=== PATIENT | female | born 1960 | race Caucasian/White ===

== ENCOUNTER → 2017-09-05 | Outpatient (CLI) | payer OTHER ==
--- NOTE | 2017-09-06 10:15 | PULMONARY FUNCTION TEST ---
CLINICAL DATA: A 57-year-old female with a height of 62 inches and a weight of 230 pounds, referred by Dr. Jones Moise for evaluation of asthma. She is currently on Advair. Spirometry pre- and post-bronchodilator was performed. FINDINGS: Pre-bronchodilator spirometry is within normal limits. FVC was 94% of predicted. FEV1 was 91% of predicted. [id number] was 81% of predicted. There was improvement after inhaled bronchodilator. FVC remained the same at 95% of predicted. FEV1 improved 9% to 99% of predicted. [id number] improved 53% to 124% of predicted. IMPRESSION: Normal baseline spirometry with mild improvement after inhaled bronchodilator, especially in small airway flow indicated by a 53% improvement in [id number]. MTDD
== END | disposition home or self-care (01) ==
LOC: C.RC 12:33
PROVIDERS: ATTEND Family Medicine
DX: J45.901 Unspecified asthma with (acute) exacerbation (principal)

== ENCOUNTER 2017-10-13 10:29 | Emergency (ER) | payer OTHER ==
[~2017-10-13] VITALS: Ht 154.9 cm; Wt 111.0 kg
[2017-10-13 10:36] VITALS: TEMP 36.9; Ht 154.9 cm; Wt 111.0 kg
[2017-10-13] MEDS ORDERED: ALBU18002 INH (10:44)
[2017-10-13] MEDS ORDERED: ADVIN10/60 INH (10:44)
[2017-10-13] MEDS ORDERED: ONDANSETRON INJ 2 MG/ML 2 ML VIAL IV STA (10:44)
[2017-10-13] MEDS ORDERED: ESCI10TA17 PO (10:44)
[2017-10-13] MEDS ORDERED: TRAZ100T29 PO (10:44)
[2017-10-13] MEDS ORDERED: CETI10TA84 PO (10:44)
[2017-10-13] MEDS ORDERED: BUPR200T2 PO (10:44)
[2017-10-13] MEDS: MoRPHine SULFATE 10 MG/ML CARP/VIAL IV PRN ×4 (10:56→15:55)
--- NOTE | 2017-10-13 12:35 | DIAGNOSTIC IMAGING REPORT ---
LEFT WRIST 3 VIEWS CLINICAL HISTORY: Fall with left wrist pain. FINDINGS: 3 views of left wrist are obtained. No prior studies are available for comparison at the time of dictation. The skeletal structures are osteopenic. There is an avulsion fracture of the ulnar styloid. There is an impacted and comminuted fracture of the distal radial metaphysis with apex volar angulation and intra-articular extension. Small anteriorly and posteriorly distracted fragments are identified. The radiocarpal articulation appears maintained. Mild arthritic change is noted at the first carpometacarpal articulation. Soft tissue edema is present around the wrist. IMPRESSION: 1. There is an impacted, comminuted, and mildly angulated fracture of the distal radial metaphysis as above with overlying soft tissue edema. 2. There is a small avulsion fracture of the ulnar styloid. Electronically signed by: Pedrito Clayton M.D. 10/13/2017 12:34 PM Dictated Date/Time: 10/13/2017 12:32 PM
--- NOTE | 2017-10-13 12:37 | DIAGNOSTIC IMAGING REPORT ---
L SHOULDER MIN 2 VIEWS ROUTINE CLINICAL HISTORY: Left shoulder pain following fall. COMPARISON: None FINDINGS: Alignment of the left shoulder is likely anatomic although evaluation is suboptimal on this exam. No fracture or suspicious lesion is present. There is moderate osteoarthritis of the left acromioclavicular joint. IMPRESSION: No acute fracture or dislocation of the left shoulder identified Electronically signed by: Stephen Car M.D. 10/13/2017 12:36 PM Dictated Date/Time: 10/13/2017 12:31 PM
[2017-10-13] MEDS ORDERED: ONDANSETRON 4MG OD TAB ONE (14:16)
[2017-10-13] MEDS ORDERED: XYLOCAINE 1%/SOD BICARB 20 ML VIAL INFIL ONE (15:15)
[2017-10-13 15:37] VITALS: O2SAT 100
[2017-10-13] MEDS ORDERED: HYDR-5688 PO (16:27)
[2017-10-13] MEDS ORDERED: ONDANSETRON HOME PACK 4MG OD TAB PO ONE (16:30)
[2017-10-13] MEDS ORDERED: NORCO 5/325MG HOME PACK PO ONE (16:30)
--- NOTE | 2017-10-13 16:34 | EMERGENCY ROOM VISIT NOTE ---
History Report prepared by Maria Isabel: Gaby Maldonado Under the Supervision of: Dr. Peterson Snow M.D. First contact with patient: 10:37 Chief Complaint: SHOULDER PAIN Stated Complaint: SHOULDER PAIN History of Present Illness The patient is a 57 year old female who presents to the Emergency Room with complaints of persistent left shoulder pain starting [employer]. The patient presents to the ED by EMS. She was cleaning out a large cart from the inside. She was preparing to get out of the cart when it started tipping over. She tried to catch herself with her left hand and landed on her left arm. She reports pain to the left shoulder and left wrist. She currently rates her discomfort as a 9/ 10 in severity. She has had two 5 mg doses of morphine. The pain worsens with movement of her arm. She denies any head injury. Pt denies LOC, headache, visual changes, neck pain, chest pain, breathing difficulties, nausea, vomiting , abdominal pain, back pain, lower extremity pain, right arm pain, numbness, weakness, open wounds, active bleeding, or other complaints. Source of History: patient Onset: PL[employer] ADVIS[employer] Position: shoulder (left) Symptom Intensity: 9/10 Quality: other (injury, pain) Timing: other (persistent) Modifying Factors (Worsening): movement Note: Pt reports left wrist pain. Review of Systems See HPI for pertinent positives and negatives. A total of ten systems were reviewed and were otherwise negative. Past Medical & Surgical Medical Problems: (1) Depression Family History No pertinent family history stated. Social History Smoking Status: Never Smoker Occupation Status: employed Current/Historical Medications Scheduled Bupropion Hcl (Wellbutrin Sr), 200 MG PO BID Cetirizine (Zyrtec), 10 MG PO DAILY Escitalopram (Lexapro), 10 MG PO DAILY Fluticasone Prop/Salmeterol (Advair Diskus 100/50 60 Dose), 1 PUFF INH BID Trazodone Hcl (Trazodone), 100 MG PO HS Scheduled PRN Albuterol Sulfate (Proair Respiclick), 1 DOSE INH DAILY PRN for Wheezing Hydrocodone/Acetaminophen 5MG/325MG (B[place]roft 5MG/325MG), 1-2 TABS PO Q6H PRN for Pain Allergies Coded Allergies: Penicillins (Verified Allergy, Unknown, 10/13/17) Physical Exam Vital Signs Date Time Temp Pulse Resp B/P (MAP) Pulse Ox O2 Delivery O2 Flow Rate FiO2 10/13/17 16:25 82 12 143/95 100 Nasal Cannula 2.0 10/13/17 16:02 79 10/13/17 15:59 80 20 145/89 100 Nasal Cannula 2.0 10/13/17 15:37 100 Nasal Cannula 2.0 10/13/17 15:35 73 18 127/92 94 Room Air 10/13/17 14:19 76 18 122/85 94 Room Air 10/13/17 12:30 77 12 126/80 97 Nasal Cannula 2.0 10/13/17 12:02 96 Nasal Cannula 2.0 10/13/17 12:01 87 Room Air 10/13/17 11:03 84 10/13/17 10:36 36.9 86 18 155/108 94 Room Air Physical Exam GENERAL: Awake, alert, uncomfortable appearing, moderate distress HEAD: Normocephalic, atraumatic. No carrillo sign. No raccoon eyes. EYES: Normal conjunctiva. PERRL. EARS: External ears normal. Right TM normal. Left TM normal. NOSE: Atraumatic OROPHARYNX: Lips, tongue, and mucosa unremarkable. No erythema or exudate. NECK: Supple, FROM. No tracheal deviation or JVD. No posterior midline tenderness. No step offs noted. RESPIRATORY: CTA bilaterally. Breath sounds equal. No wheezes. No rhonchi. Normal respiratory effort. CARDIAC: normal rate, normal rhythm. No murmurs. No rubs. ABDOMEN: Inspection reveals no abnormalities. Soft, non distended. No tenderness to palpation. No hernias. PELVIS: Stable to rock. SKIN: Normal. LYMPH: No adenopathy. MUSCULOSKELETAL: Left fingers nontender and atraumatic. Snuff box tenderness and swelling over the radial aspect of the left wrist. Ulnar styloid tenderness. Forearm otherwise atraumatic nontender. Small abrasion on the left elbow, nontender. Tenderness about the left shoulder, ROM limited secondary to pain. Bicep and triceps area nontender. Right upper and both lower extremities are atraumatic. NEURO: GCS 15. Normal sensorium. No sensory or motor deficits noted. Medical Decision & Procedures ER Provider Diagnostic Interpretation: Radiology results as stated below per my review and radiologist interpretation: L SHOULDER MIN 2 VIEWS ROUTINE CLINICAL HISTORY: Left shoulder pain following fall. COMPARISON: None FINDINGS: Alignment of the left shoulder is likely anatomic although evaluation is suboptimal on this exam. No fracture or suspicious lesion is present. There is moderate osteoarthritis of the left acromioclavicular joint. IMPRESSION: No acute fracture or dislocation of the left shoulder identified Electronically signed by: Stephen Car M.D. 10/13/2017 12:36 PM Dictated Date/Time: 10/13/2017 12:31 PM LEFT WRIST 3 VIEWS CLINICAL HISTORY: Fall with left wrist pain. FINDINGS: 3 views of left wrist are obtained. No prior studies are available for comparison at the time of dictation. The skeletal structures are osteopenic. There is an avulsion fracture of the ulnar styloid. There is an impacted and comminuted fracture of the distal radial metaphysis with apex volar angulation and intra-articular extension. Small anteriorly and posteriorly distracted fragments are identified. The radiocarpal articulation appears maintained. Mild arthritic change is noted at the first carpometacarpal articulation. Soft tissue edema is present around the wrist. IMPRESSION: 1. There is an impacted, comminuted, and mildly angulated fracture of the distal radial metaphysis as above with overlying soft tissue edema. 2. There is a small avulsion fracture of the ulnar styloid. Electronically signed by: Pedrito Clayton M.D. 10/13/2017 12:34 PM Dictated Date/Time: 10/13/2017 12:32 PM Medications Administered Medications (Trade) Dose Ordered Sig/Omer Route Start Time Stop Time Status Last Admin Dose Admin Morphine Sulfate (MoRPHine SULFATE INJ) 6 mg Q15M PRN IV 10/13/17 10:45 10/27/17 10:44 10/13/17 15:55 6 MG Ondansetron HCl (Zofran Inj) 4 mg NOW STAT IV 10/13/17 10:44 10/13/17 10:47 DC 10/13/17 10:55 4 MG Ondansetron HCl (Zofran Odt) 4 mg STK-MED ONCE .ROUTE 10/13/17 14:16 10/13/17 14:17 DC 10/13/17 14:18 4 MG Procedure SPLINTING: Indication: Fracture The injured extremity was identified. The patient was prepped and measured for the placement of a volar Ortho-Glass splint. Splint applied in the standard fashion over a layer of webril and secured using an elastic bandage. Set into a position of function. Normal neurovascular status after placement verified by me. The patient tolerated the procedure well and the care of the splint was discussed with the patient/family. No complications. ED Course 1043: The patient was evaluated in room B7. A complete history and physical exam was performed. 1044: Zofran Inj 4 mg IV. 1045: Morphine Sulfate 6 mg IV. 1332: I reevaluated the patient. I updated her on the results. 1416: Zofran Odt 4 mg PO. 1451: I discussed the patient's case with Dr. Jha, [facility] orthopedic surgery. He will come see the patient for a nonsedation reduction. 1506: I reevaluated the patient. I updated her on the plan. 1610: Patient reassessed. She was successfully reduced by orthopedics. Medications and instructions reviewed. Waiting on her right home. Medical Decision Prior records reviewed and summarized above. Triage Nursing notes reviewed and agree them. Additional history obtained from family. The patient's history was concerning for traumatic injury. Differential diagnosis: Etiologies such as fracture, dislocation, neurovascular compromise, compartment syndrome, soft tissue injury, as well as others were entertained. Physical examination: Consistent with an isolated left arm injury. ER treatment provided: Tubal doses of IV morphine Splint Sling Ice pack IV Zofran Reduction by orthopedics On reassessment the patient felt better. Diagnostics interpreted by me: Imaging studies: Xrays as above. Consultation: A consultation was placed with [facility]. The case was discussed and diagnostics were reviewed. The patient was evaluated in the ER for further treatment. The patient has a left wrist fracture. She has a left shoulder strain. Rotator cuff injury is not excluded given the inability to fully test her arm. She will have follow-up with orthopedics. By the evaluation outlined above emergent etiologies such as open fracture, dislocation, neurovascular compromise , compartment syndrome, infections, as well as others were deemed relatively unlikely. The patient was informed about the findings as listed above. All questions were answered and she will pleased with the treatment. Return instructions were outlined and the patient was discharged in stable condition. Prescription management: B[place]roft Zofran home pack Referral: The patient was referred to [facility] for follow-up care. Medication Reconcilliation Current Medication List: was personally reviewed by me Blood Pressure Screening Patient's blood pressure: Elevated blood pressure Blood pressure disposition: Elevated BP felt to be situational Consults Time Called: 1440 Consulting Physician: Dr. Jha, [facility] orthopedic surgery Returned Call: 1450 I discussed the patient's case with her. He will come see the patient for a nonsedation reduction. Impression Primary Impression: Left wrist fracture Additional Impressions: Left shoulder strain Accidental fall Work related injury Scribe Attestation The scribe's documentation has been prepared under my direction and personally reviewed by me in its entirety. I confirm that the note above accurately reflects all work, treatment, procedures, and medical decision making performed by me. Departure Information Dispostion Home / Self-Care Prescriptions Hydrocodone/Acetaminophen 5MG/325MG (Bancroft 5MG/325MG) Tab 1-2 TABS PO Q6H Y for Pain, #20 TAB Prov: Peterson Snow MD 10/13/17 Referrals Arthur Flynn MD (PCP) Patient Instructions My [facility] Additional Instructions ORTHOPEDIC INSTRUCTIONS: DO NOT drive, drink alcohol, operate machinery, or perform dangerous activities today. You were given medications in the ER that can affect your ability to safely function or operate a vehicle. Hydrocodone/acetaminophen 5/325mg: Take 1-2 pills every 6 hours as needed for pain. Avoid additional Acetaminophen/Tylenol, alcohol, operating machinery or dangerous equipment, working on ladders or roofs, DRIVING, or situations where being under the influence may be dangerous. It is recommended to use a stool softener such as Colace, 100mg twice daily while taking this medication to avoid constipation. Zofran 4 mg oral dissolving tablets: take one tablet and allow it to melt in your mouth every 4 hours as needed for nausea. Ibuprofen(Motrin, Advil) may be used for fever or pain. Use 600mg every six hours as needed. Take with food. Avoid using more than 2400mg in a 24 hour period. Do not use 2400mg per day for more than three consecutive days without physician direction. Prolonged inappropriate use can lead to stomach upset or ulcers. Ice compresses for 20 minutes at a time four times daily for 2-3 days. Use the sling as instructed. Remove your arm from the sling 4-6 times a day and move all the joints around to keep them loose. Rest and elevate your injury. Do not get the splint wet. If your splint feels excessively tight, you have worsening pain, develop numbness or tingling, or your digits appear blue, loosen the korin wrap. Then reapply the korin wrap gently without removing the splint. If your symptoms are not quickly relieved return to the ER for re- evaluation. Return to the ER immediately for any numbness, tingling, severe pain, extreme swelling in the extremity or as needed. Follow-up with orthopedics tomorrow for a recheck of your current condition. Problem Qualifiers
--- NOTE | 2017-10-13 16:37 | DIAGNOSTIC IMAGING REPORT ---
L WRIST MIN 3 VIEWS ROUTINE CLINICAL HISTORY: Fracture. Post reduction films. COMPARISON: Earlier in the day. DISCUSSION: There is been interval reduction of the previous described fracture with application of a plaster cast. The fine bony details obscured. On the lateral view, the radial articular surface is in the neutral position. IMPRESSION: Interval reduction of the previous described fracture with application of a plaster cast Electronically signed by: Mack Spencer M.D. 10/13/2017 4:35 PM Dictated Date/Time: 10/13/2017 4:34 PM
--- NOTE | 2017-10-13 16:44 | Medical Consult ---
Consultation Date of Consultation: Oct 13, 2017. Attending Physician: Dr. 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 She was cleaning off some type of cart had a lot of water and the cart tipped over and she basically fell onto her left side. She put her left arm out to catch herself. She had immediate pain of her left wrist and shoulder. She was brought to the emergency room by ambulance. While in the emergency room , she had x-rays of her left wrist which showed a comminuted, impacted, intra- articular fracture of her left distal radius and nondisplaced left ulnar styloid fracture. She also had x-rays of her left shoulder which showed no evidence of acute bony abnormality. Dr. Jha was consulted for care of her left distal radius and ulna fracture. He recommended hematoma block and closed reduction. Patient agreed. She states that she does have some tingling in her left thumb, otherwise states normal sensation throughout her left hand. She denies any left elbow pain. She denies any other injuries. She denies any previous problems with her left wrist elbow or shoulder. Past Medical/Surgical History Left distal radius and ulna fracture. Left shoulder pain Social History Smoking Status: Never Smoker Allergies Coded Allergies: Penicillins (Verified Allergy, Unknown, 10/13/17) Current Inpatient Medications Current Inpatient Medications Medications (Trade) Dose Ordered Sig/Omer Route Start Time Stop Time Status Last Admin Dose Admin Morphine Sulfate (MoRPHine SULFATE INJ) 6 mg Q15M PRN IV 10/13/17 10:45 10/27/17 10:44 10/13/17 15:55 6 MG Acetaminophen/ Hydrocodone Bitart ([place] 5/325mg Home Pack) 1 homepack UD ONCE PO 10/13/17 16:30 10/13/17 16:31 Ondansetron HCl (ZOFRAN ODT 4MG Home Pack) 1 homepack UD ONCE PO 10/13/17 16:30 10/13/17 16:31 Review of Systems As per history of present illness. See ED physician note. Physical Exam Date Time Temp Pulse Resp B/P (MAP) Pulse Ox O2 Delivery O2 Flow Rate FiO2 10/13/17 16:02 79 10/13/17 15:59 80 20 145/89 100 Nasal Cannula 2.0 10/13/17 15:37 100 Nasal Cannula 2.0 10/13/17 15:35 73 18 127/92 94 Room Air 10/13/17 14:19 76 18 122/85 94 Room Air 10/13/17 12:30 77 12 126/80 97 Nasal Cannula 2.0 10/13/17 12:02 96 Nasal Cannula 2.0 10/13/17 12:01 87 Room Air 10/13/17 11:03 84 10/13/17 10:36 36.9 86 18 155/108 94 Room Air General Appearance: WD/WN, no apparent distress, + mild distress (with hematoma block, tearful) Extremities/Musculoskelatal: + pertinent finding (Exam of left upper extremity : She is nontender with palpation of her fingers on left hand. She is nontender throughout her left hand. She has no distal edema. She is decreased sensation with light touch in the dorsal aspect of her left thumb. Motor function is intact. Sensation to light touch is intact on the volar surface of all of her fingers. Capillary refill is brisk. She has an effusion to her left wrist joint. She is point tender with palpation over her left distal radius and left distal ulna over the fracture sites. There is a small deformity appreciated. Range of motion of her left wrist not attempted due to pain. She tolerates gentle flexion-extension of her left elbow. I did not perform pronation or supination of her forearm. She is nontender over any bony prominence of her left elbow. There is no evidence of olecranon effusion. She does have small superficial abrasion over her left olecranon. No deformity noted at her left elbow or shoulder. The shoulder is tender on the anterior aspect of the shoulder. She is nontender over the before meals joint or clavicle. She is nontender over the scapula. Range of motion is limited today due to guarding and pain. She tolerates gentle external/internal rotation of about [address] She can abduct to about 80-90 with some mild discomfort but strength is intact. Forward elevation not performed today.) Laboratory Results Diagnostic radiology: LEFT WRIST 3 VIEWS CLINICAL HISTORY: Fall with left wrist pain. FINDINGS: 3 views of left wrist are obtained. No prior studies are available for comparison at the time of dictation. The skeletal structures are osteopenic. There is an avulsion fracture of the ulnar styloid. There is an impacted and comminuted fracture of the distal radial metaphysis with apex volar angulation and intra-articular extension. Small anteriorly and posteriorly distracted fragments are identified. The radiocarpal articulation appears maintained. Mild arthritic change is noted at the first carpometacarpal articulation. Soft tissue edema is present around the wrist. IMPRESSION: 1. There is an impacted, comminuted, and mildly angulated fracture of the distal radial metaphysis as above with overlying soft tissue edema. 2. There is a small avulsion fracture of the ulnar styloid. L SHOULDER MIN 2 VIEWS ROUTINE CLINICAL HISTORY: Left shoulder pain following fall. COMPARISON: None FINDINGS: Alignment of the left shoulder is likely anatomic although evaluation is suboptimal on this exam. No fracture or suspicious lesion is present. There is moderate osteoarthritis of the left acromioclavicular joint. IMPRESSION: No acute fracture or dislocation of the left shoulder identified Assessment & Plan Assessment: 1. Left distal radius and ulna fracture. Intra-articular, comminuted, impacted 2. Left shoulder pain Plan: She was seen and evaluated by myself as well as Dr. Jha. After evaluation with Dr. Jha, a hematoma block was recommended in order to perform closed reduction of her left distal radius fracture. She was in agreement. Please see procedure note for further details. Hematoma block was successfully performed as well as a closed reduction by Dr. Jha with fluoroscopy guidance. Improved anatomic alignment of the fracture was confirmed with fluoroscopy images. A postreduction x-ray was also ordered and currently pending. Sugar tong splint was placed on her left forearm using plaster. She tolerated the splint application well. The splint allowed for full range of motion of her fingers. Sling was reapplied. She was instructed to ice, and elevate left upper extremity. Wear the sling for comfort. Keep the splint on at all times. Keep the splint clean, dry, and intact. Cover when bathing. She should be out of work until further notice. She was instructed to open and close her fingers frequently to prevent stiffness and elbow swelling. No pushing or pulling with her left upper extremity. Follow- up with Dr. Jha on October. Please call [phone] with any problems, questions, or concerns. He has a follow-up scheduled the pins in orthopedics with Dr. Jha on October 19, 2017 at 9:15 AM. Procedure Note: Left wrist was identified. Timeout verbal consent was obtained. She agreed with hematoma block being performed today. Left wrist distal radius fracture site was identified. Site of point tenderness and fracture was marked, cleansed with alcohol and injected 12 cc of 1% percent lidocaine plain was injected into the distal radius fracture, performed by myself and Dr. Jha. Aspiration of hematoma was performed to confirm injection site. Pressure was applied for hemostasis.
--- NOTE | 2017-10-13 16:55 | DIAGNOSTIC IMAGING REPORT ---
L WRIST 2 VIEWS CLINICAL HISTORY: 57 years-old Female presenting with CLOSED REDUCTION LEFT WRIST. TECHNIQUE: 4 fluoroscopic spot image(s) obtained as part of an intraoperative procedure. COMPARISON: Plain radiographs performed earlier the same day. FINDINGS/IMPRESSION: Distal radial fracture again noted with improved alignment and decreased impaction. No residual significant angulation. Ulnar solid fracture less apparent. A plaster cast was subsequently placed. Please see surgical report for further details. Dose area product (mGy.cm^2): 42.024. Fluoroscopy time: 3 seconds. Number of fluoroscopic spot images: 4. Electronically signed by: Juan Antonio Mcguire M.D. 10/13/2017 4:53 PM Dictated Date/Time: 10/13/2017 4:51 PM
[2017-10-13 17:05] VITALS: BP 112/77; PULSE 77; O2SAT 95
== END 2017-10-13 17:07 | disposition home or self-care (01) ==
LOC: EDBD 10:29 → C.EDB 10:30
DX: S52.502A Unspecified fracture of the lower end of left radius, initial encounter for closed fracture (principal); S43.402A Unspecified sprain of left shoulder joint, initial encounter; W19.XXXA Unspecified fall, initial encounter; Y92.169 Unspecified place in school dormitory as the place of occurrence of the external cause; Y99.0 Civilian activity done for income or pay; F32.9 Major depressive disorder, single episode, unspecified; Z79.899 Other long term (current) drug therapy; Z88.0 Allergy status to penicillin

== ENCOUNTER → 2017-10-19 | Outpatient (CLI) | payer OTHER ==
[~2017-10-19] MED LIST: ADVIN10/60 INH; ALBU18002 INH; BUPR200T2 PO; CETI10TA84 PO; ESCI10TA17 PO; HYDR-5688 PO; TRAZ100T29 PO
== END | disposition home or self-care (01) ==
LOC: C.RDSM 18:13
PROVIDERS: ATTEND Orthopaedic Surgery
DX: S62.102A Fracture of unspecified carpal bone, left wrist, initial encounter for closed fracture (principal); X58.XXXA Exposure to other specified factors, initial encounter

== ENCOUNTER → 2017-10-27 | Outpatient (CLI) | payer OTHER | END | disposition home or self-care (01) | LOC: C.RDSM 17:07 | PROVIDERS: ATTEND Orthopaedic Surgery | DX: S62.102A Fracture of unspecified carpal bone, left wrist, initial encounter for closed fracture (principal); X58.XXXA Exposure to other specified factors, initial encounter ==

== ENCOUNTER → 2017-10-31 | Outpatient (CLI) | payer OTHER ==
--- NOTE | 2017-10-31 14:58 | DIAGNOSTIC IMAGING REPORT ---
CHEST 2 VIEWS ROUTINE HISTORY: Preop. COMPARISON: Chest 04/18/2016. FINDINGS: The cardiac silhouette is mildly enlarged. Low lung volumes. The lungs are clear. No pleural effusions. No pneumothorax. IMPRESSION: The cardiac silhouette is mildly enlarged. However, this could be accentuated by the low lung volumes. Otherwise, no acute process within the chest. Electronically signed by: Carlos Browne M.D. 10/31/2017 2:57 PM Dictated Date/Time: 10/31/2017 2:55 PM
== END | disposition home or self-care (01) ==
LOC: C.RAD1850 14:47
PROVIDERS: ATTEND Physician Assistant
DX: S62.102A Fracture of unspecified carpal bone, left wrist, initial encounter for closed fracture (principal); X58.XXXA Exposure to other specified factors, initial encounter; M75.102 Unspecified rotator cuff tear or rupture of left shoulder, not specified as traumatic

== ENCOUNTER → 2017-11-13 | Day surgery (SDC) | payer OTHER ==
[2017-10-31 09:58] VITALS: Ht 154.9 cm; Wt 104.5 kg
[~2017-11-13] VITALS: Ht 154.9 cm; Wt 104.5 kg
[~2017-11-13] MED LIST changes: +ATROPINE SULFATE 0.1 MG/ML 5ML SYR IV PRN; +CLINDAMYCIN 900MG IV SCH; +DEXAMETHASONE SOD INJ 4 MG/ML VIAL ONE; +EpHEDrine SULFATE 50MG/5ML SYR ONE; +EpHEDrine SULFATE INJ 50 MG/ML AMP IV PRN; +EpINEphrine HCL INJ 1 MG/ML 1ML SYRINGE ONE; +EpINEphrine INJ 1MG/ML AMP 1 MG/ML AMP ONE; +FENTANYL CITRATE INJ 50 MCG/1 ML 2 ML VIAL IV PRN; +FENTANYL CITRATE INJ 50 MCG/1 ML 2 ML VIAL ONE; -HYDR-5688 PO; +LACTATED RINGER'S 1000ML 1,000 ML IV SCH; +LIDOCAINE HCL 2% 2 ML VIAL (20MG/ML) ONE; +METOCLOPRAMIDE HCL INJ 5 MG/ML 2 ML VIAL IV PRN; +MIDAZOLAM HCL 1 MG/ML 2ML VIAL ONE; +ONDANSETRON INJ 2 MG/ML 2 ML VIAL IV PRN; +ONDANSETRON INJ 2 MG/ML 2 ML VIAL ONE; +OXYCODONE/ACETAMINOPHEN 5-325 TAB PO PRN; +PROPOFOL IV EMULSION 10 MG/ML 20 ML VIAL ONE; +ROCURONIUM BROMIDE 10 MG/ML 5 ML VIAL ONE; +ROPIVACAINE 0.5% 5 MG/ML 30 ML VIAL ONE; +SODIUM CHLORIDE 0.9% 1000ML 1,000 ML IV SCH; +SUCCINYLCHOLINE CHLORIDE 20 MG/ML 10 ML VIAL IV ONE
--- NOTE | 2017-11-13 08:32 | History & Physical Bridge - SC ---
H&P Re-Evaluation Bridge Note: I have examined the patient, reviewed the History & Physical and in the interval since the performance of the History & Physical I have noted the following changes of clinical significance: No changes noted. Cast was removed in pre-op area.
--- NOTE | 2017-11-13 12:13 | [facility] Post Operative Brief Note ---
Immediate Operative Summary Operative Date November 13, 2017. Pre-Operative Diagnosis Left Shoulder Rotator Cuff Tear, Biceps Tendonitis Post-Operative Diagnosis Same Procedure(s) Performed Left Shoulder Arthroscopy, Rotator Cuff Repair, Biceps Tenotomy, Subacromial Decompression Surgeon Dr. Jha Heat Treat Puller Surgeon(s) Sana Solis PA-C Estimated Blood Loss 30 ML Findings Consistent with Post-Op Diagnosis Fluids (cc crystalloids) 1000 cc Specimens None Drains None Anesthesia Type General Regional Complication(s) none Disposition Disposition: Recovery Room / PACU
--- NOTE | 2017-11-13 12:31 | [facility] Operative Report ---
Operative Report Operative Date November 13, 2017. Pre-Operative Diagnosis Left Shoulder Rotator Cuff Tear, Biceps Tendonitis Post-Operative Diagnosis Same Procedure(s) Performed Left Shoulder Arthroscopy, Rotator Cuff Repair, Biceps Tenotomy, Subacromial Decompression Surgeon Dr. Jha Career Technical Counselor Surgeon(s) Sana Solis PA-C Estimated Blood Loss 30 ML Fluids 1000 cc Specimens None Drains None Anesthesia Type General Regional Complication(s) none Disposition Recovery Room / PACU Description of Procedure I was present during entire procedure and performed portal skin closure. Please see Dr. Jha procedure notes for specifics. I attest to the content of the Intraoperative Record and any orders documented therein. Any exceptions are noted below.
--- NOTE | 2017-11-13 12:35 | Discharge Instructions ---
Discharge Instructions Date of Service November 13, 2017. Admission Reason for Admission: Left Shoulder Rotator Cuff Tear, Biceps Tendonitis Discharge Discharge Diagnosis / Problem: Left shoulder rotator cuff tear, biceps tendonitis Discharge Goals Goal(s): Decrease discomfort, Improve function, Increase independence Activity Recommendations Activity Limitations: as noted below Lifting Limitations: until after follow-up appointment Exercise/Sports Limitations: until after follow-up appointment May Resume Sexual Activity: after follow-up appointment Shower/Bathe: tomorrow, keep incision dry Driving or Machine Use: No driving until cleared by lubricating specialist Weightbearing Status: Left non-weightbearing (Upper extremity) . Instructions / Follow-Up Instructions / Follow-Up Post-operative Instructions Dear Patient and Family/Friends, Before you are discharged from the hospital, it is important to know what to expect when you get home after surgery. To that end, we have created this sheet of discharge instructions which covers many commonly asked questions. Make sure you go through this sheet in its entirety with your nurse before you are discharged. Please note that we will go over the specifics of your surgery and recovery when you return for your first post-operative visit. Sincerely, Dr. Jha Pain Expect to be in a fair amount of pain after surgery. Remember, our goal is not to eliminate your pain, but to make it tolerable. It is a good idea to stay ahead of your pain by taking the medications you were prescribed once you get home. Typically, the pain starts improving 3-7 days after surgery. You should start weaning off the narcotic pain medication (oxycodone, hydrocodone, hydromorphone, morphine) as soon as your pain improves. Please call our office if your pain is not adequately controlled. Ice Ice your operative site at least 5 times a day for 15-30 minutes at a time. Make sure you have a thin cloth between the ice or cooling unit and your skin to prevent jin bite. This is especially important if you received a nerve block. Continue icing your operative site for the first 5-7 days after surgery , then as needed. Diet/Nausea/Vomiting Start by drinking clear liquids and eating crackers. If you can tolerate this, then you may resume your normal diet. If you feel nauseated or vomit, take Zofran/ondansetron (if prescribed). Please call our office if you have intractable nausea or vomiting, or, if after hours, you may go to the Emergency Room for help. Constipation Constipation is a common side effect of narcotic pain medication. If you have not had a bowel movement within 2 days after surgery, we recommend purchasing an over the counter laxative such as Milk of Magnesia, Dulcolax, or Miralax from a local pharmacy, and taking it as instructed. Call our clinic if any questions. Slings and Braces If you were placed in a sling or brace, it must be worn at all times, including sleep. You may remove your sling or brace for physical therapy, home exercises , and showering. The length of time you will be in your brace and range of motion restrictions depends on what surgery you had; these details will be reviewed at your first post-operative appointment. Nerve block The anesthesia team sometimes places a nerve block to help with post-operative pain control. This results in significant numbness and inability to move the extremity. The nerve block usually wears off in 8-12 hours, but sometimes can last up to 24 hours. Please call our office if you are still unable to move your extremity after 24 hours, unless you received a pain pump to take home. Nerve blocks typically wear off quickly, so start taking pain medication as soon as you start feeling soreness near your surgical site. Weight bearing and Range of Motion. Do not bear any weight through your operative extremity immediately after surgery. If you had upper extremity surgery, do not lift anything with that arm. If you are in a knee brace, keep it locked in place until your follow-up. We will discuss your weight bearing, range of motion, and lifting restrictions in detail at your first post-operative appointment. Continuous Passive Motion (CPM) Machine If you were prescribed a CPM machine, it will start after your first post- operative appointment, at which time we will give you instructions on the range of motion settings and duration of treatment Physical therapy You will be given a prescription for physical therapy or occupational therapy at your first post-operative appointment. Typically, patients start therapy within 1 week of surgery Wound care and showering We will inspect your wound at your first post-operative visit, and may do a dressing change at that time. Most patients will be in a water-proof dressing that is removed 14 days after surgery. It is normal to see some dried blood on the dressing. Do not remove your dressing, paper strips or sutures yourself unless you are given permission. Showering is allowed the day after surgery. Do not scrub or remove any dressings. The wound should not be submerged underwater (i.e. in a bathtub or pool) until 4 weeks after surgery LINDSAY stockings If you were given white stockings, these are to be worn at all times except to shower (on both legs) for the first 2 weeks after surgery. Driving You may not drive while taking narcotic pain medication or while in a cast, splint, sling or brace. You, the patient, need to make the final determination about when you are safe to drive, however, the earliest you may consider driving after surgery is below: Hand/Wrist/Elbow Surgery: 3 days Shoulder Surgery: 2 weeks Hip,/Knee/Ankle Surgery: 4 weeks Fracture repair: 6 weeks Return to Work Your return to work depends on what surgery was done and what type of work you do. Please bring any paperwork your employer needs completed to your first post -operative visit. Also, bring a description of your job duties, as this helps us to understand what risks you may face at work. Travel Avoid long distance travel (greater than 1 hour) in airplanes and cars for the first 6 weeks after surgery. If you must travel, you need to have a Doppler ultrasound done before you travel to rule out a blood clot in your legs. Follow-up You should have a follow-up appointment already scheduled 1-2 days after surgery. If not, please contact our office to make this appointment before you leave the hospital. When to call the office It is normal to have swelling and bruising in the limb that was operated on. This will improve with time. It is also normal to have fevers for the first 2 days after surgery. Reasons you should call your doctor include: Uncontrolled pain; Nausea, vomiting, or constipation that does not improve with medication; Fevers over 101.5, chills, sweats; Drainage or bleeding from the wound; Foul odor; Spreading areas of redness; Any other concerns Current Hospital Diet Patient's current hospital diet: Discharge Diet Recommended Diet: Regular Diet Procedures Procedures Performed: Left Shoulder Arthroscopy, Rotator Cuff Repair, Biceps Tenotomy, Subacromial Decompression Pending Studies Studies pending at discharge: no Medical Emergencies . Who to Call and When: Medical Emergencies: If at any time you feel your situation is an emergency, please call 911 immediately. . Non-Emergent Contact Non-Emergency issues call your: Primary Care Provider Call Non-Emergent contact if: you have a fever, temperature is above 101.5, your pain is not controlled, your pain is worsening, wound has increased drainage, you have any medication questions . "Provider Documentation" section prepared by Norberto Solis. . [place] Drug Monitoring Program Search Results: patient reviewed within database, no issues identified, see additional documentation
[2017-11-13 13:23] VITALS: TEMP 36.8
--- NOTE | 2017-11-13 13:31 | OPERATIVE REPORT ---
DATE OF OPERATION: 11/13/2017 PREOPERATIVE DIAGNOSES: Left shoulder rotator cuff tear, left shoulder biceps tendinitis, left shoulder subacromial spur, and left shoulder loose body. POSTOPERATIVE DIAGNOSES: Same with the exception of no visible loose body. OPERATIONS PERFORMED: 1. Left shoulder arthroscopic rotator cuff repair. 2. Left shoulder biceps tenotomy. 3. Left shoulder subacromial decompression. SURGEON: Juan Antonio Jah MD MAMMA LOGIST: AKSHAT Rodriguez ESTIMATED BLOOD LOSS: 30 mL. IV FLUIDS: 1000 mL crystalloid. SPECIMENS: None. COMPLICATIONS: None. IMPLANTS: 4 [employer] SwiveLock anchors, 2 preloaded with FiberTape and the other two self punching. INDICATIONS: Ms. York is a 57-year-old female who took a fall at work approximately a month ago sustaining a left intra-articular distal radius fracture and an acute left shoulder rotator cuff tear. I have been treating her distal radius fracture nonsurgically for the last 4 weeks. An MRI showed acute rotator cuff tear. We waited until 4 weeks so that her distal radius fracture could provisionally heal and yet not wait past the 6 week point, at which point a rotator cuff repair was less likely to heal. X-rays including 3 views done today demonstrate good healing of her distal radius fracture and good alignment. After reviewing all the risks and benefits of surgery, she elected to proceed. All questions were answered. Informed consent was signed. OPERATIVE FINDINGS: Diagnostic arthroscopy findings were as follows: 1. The biceps tendon showed tendonitis, and there was synovitis in the rotator interval 2. The subscapularis was intact. 3. The supraspinatus and anterior half of the infraspinatus were torn off the greater tuberosity. 4. The teres minor was intact. 5. The articular cartilage of the glenoid and the humeral head were normal. 6. The glenoid labrum was within normal limits. 7. The subacromial space showed an anterior subacromial spur with some fraying of the undersurface of the CA ligament consistent with shoulder pathologic impingement. The loose body was not visible in the joint. It may have escaped through the rotator cuff tear into the subdeltoid space, as it was not visible in the subacromial space either. I did not feel that the benefits of attempting to find it in the subdeltoid space near the axillary nerve outweighed the risks and therefore a loose body removal was not performed. The rotator cuff tear was a reverse L-shaped tear which was repaired with a single margin convergence stitch followed by a SpeedBridge. DESCRIPTION OF THE OPERATION: The patient was identified in the preoperative holding area where her surgical site was marked. Her cast was removed and x-rays were obtained showing good alignment of the distal radius fracture. She was then given interscalene block by anesthesia. She was brought back to the main operating room. She was placed on the operating room table and general anesthesia was administered. She was moved in the lateral decubitus position. All bony prominences were padded. An exam under anesthesia was performed demonstrating some stiffness in her shoulder with approximately 100 degrees of forward elevation and 50 degrees of external rotation with the arm at the side. She was then prepped and draped in the normal sterile fashion. Prior to incision, a multidisciplinary timeout was called. All in the room are in agreement. We began by making a posterior viewing portal. An anterior working portal was created under direct visualization. We then performed a diagnostic arthroscopy revealing the above findings. Once the diagnostic arthroscopy was complete, the basket punch was introduced through the anterior working portal and was used to tenotomize the biceps at its insertion on the superior labrum. The biceps retracted out of the joint nicely. The scope was moved in the subacromial space. The undersurface of the acromion was exposed with electrocautery. The CA ligament was released off the anterior aspect of the acromion. A 5.5 barrel sarita was used to perform a decompression of the subacromial spur. The PassPort cannula was inserted. The rotator cuff tear was explored. It was a reverse L-shaped tear with a split going between the infraspinatus and supraspinatus. The footprint was then debrided of any soft tissue down to healthy bleeding bone, which was gently touched with the shaver to stimulate healing. I then used a #[address] a single margin convergence stitch between the supra and infraspinatus, which nicely reduced the tendons down onto the exposed footprint. I then made an accessory portal just off the lateral edge of the acromion through which I placed my 2 SwiveLocks preloaded with FiberTape and TigerTape respectively. These were then passed through the rotator cuff tear medially and cut. One strand of TigerTape and one strand of FiberTape were then grasped out through the lateral working portal. This was placed down through in a lateral row anchor via a self-punching SwiveLock anchor. The remaining 2 strands were then placed in another self-punching SwiveLock anchor obtaining excellent fixation with appropriate tension of the rotator cuff tendon onto the tuberosity. At this point, the probe was used to carefully inspect the repair which we were very happy with. Our final arthroscopic images were obtained. The portals were closed with inverted 3-0 Monocryl sutures. Sterile dressing was applied and she was placed into a sling with abduction pillow. The patient was carefully moved into the supine position, extubated, then transferred to recovery room in stable condition. POSTOPERATIVE COURSE: The patient will be discharged home from the recovery room. She will be nonweightbearing through the left upper extremity for the next 6 weeks. Sling is for 4 weeks. She will start gentle active range of motion exercises for her wrist and hand and elbow. She will return to clinic tomorrow for physical therapy and be on aspirin for DVT prophylaxis. I attest to the content of the Intraoperative Record and any orders documented therein. Any exceptions are noted below. GIGI
--- NOTE | 2017-11-13 13:40 | Anesthesia Progress Nt - [facility] ---
Anesthesia Post Op Note Date & Time November 13, 2017 at 13:40 Vital Signs Pain Intensity: 0 Vital Signs Past 12 Hours Date Time Temp Pulse Resp B/P (MAP) Pulse Ox O2 Delivery O2 Flow Rate FiO2 11/13/17 13:23 36.8 81 16 118/78 (91) 94 Room Air 11/13/17 13:11 79 21 11/13/17 13:11 80 21 96 11/13/17 13:10 114/84 11/13/17 13:08 36.8 81 20 114/84 95 Room Air 11/13/17 13:06 85 20 94 11/13/17 13:06 86 20 11/13/17 13:05 118/77 11/13/17 13:01 84 23 11/13/17 13:01 83 23 95 11/13/17 13:00 116/80 11/13/17 12:56 83 16 100 11/13/17 12:56 84 16 11/13/17 12:55 114/79 11/13/17 12:53 82 21 11/13/17 12:53 81 21 99 11/13/17 12:50 113/84 11/13/17 12:48 84 21 11/13/17 12:48 85 21 98 11/13/17 12:45 119/76 11/13/17 12:43 84 20 11/13/17 12:43 85 20 98 11/13/17 12:40 120/82 11/13/17 12:38 91 21 11/13/17 12:38 90 21 99 11/13/17 12:35 115/78 11/13/17 12:33 93 20 11/13/17 12:33 94 20 99 11/13/17 12:30 36.0 94 20 120/86 99 Mask 6 11/13/17 12:30 120/86 11/13/17 10:08 0 11/13/17 10:07 83 11/13/17 10:07 83 96 11/13/17 10:05 119/78 11/13/17 10:02 72 21 97 11/13/17 10:02 72 11/13/17 10:00 119/79 11/13/17 09:57 74 11/13/17 09:57 72 20 126/81 98 11/13/17 09:52 73 11/13/17 09:52 73 21 98 11/13/17 09:47 69 18 98 11/13/17 09:47 69 11/13/17 09:42 69 11/13/17 09:42 69 18 98 11/13/17 09:37 74 23 98 11/13/17 09:37 74 11/13/17 09:32 71 11/13/17 09:32 71 16 98 11/13/17 09:27 73 11/13/17 09:27 73 19 98 11/13/17 09:22 71 11/13/17 09:22 71 21 98 11/13/17 09:17 72 11/13/17 09:17 73 20 99 11/13/17 09:12 69 17 99 11/13/17 09:12 69 11/13/17 09:07 74 11/13/17 09:07 75 22 99 11/13/17 09:02 88 31 97 11/13/17 09:02 88 31 11/13/17 07:44 36.5 80 16 128/90 (103) 99 Room Air Notes Mental Status: alert / awake / arousable, participated in evaluation Pt Amnestic to Procedure: Yes Nausea / Vomiting: adequately controlled Pain: adequately controlled Airway Patency, RR, SpO2: stable & adequate BP & HR: stable & adequate Hydration State: stable & adequate Anesthetic Complications: no major complications apparent
[2017-11-13 13:49] VITALS: BP 118/78; PULSE 73; O2SAT 95
== END | disposition home or self-care (01) ==
LOC: X.SURG 07:29
PROVIDERS: ATTEND Orthopaedic Surgery
DX: S46.012A Strain of muscle(s) and tendon(s) of the rotator cuff of left shoulder, initial encounter (principal); M75.22 Bicipital tendinitis, left shoulder; W19.XXXA Unspecified fall, initial encounter; J45.909 Unspecified asthma, uncomplicated; F41.9 Anxiety disorder, unspecified; F32.9 Major depressive disorder, single episode, unspecified; E66.01 Morbid (severe) obesity due to excess calories; Z68.41 Body mass index [BMI] 40.0-44.9, adult; Z88.0 Allergy status to penicillin; Z98.51 Tubal ligation status; Z98.890 Other specified postprocedural states

== ENCOUNTER → 2017-11-22 | Outpatient (CLI) | payer OTHER ==
[~2017-11-22] MED LIST changes: -ATROPINE SULFATE 0.1 MG/ML 5ML SYR IV PRN; -CLINDAMYCIN 900MG IV SCH; -DEXAMETHASONE SOD INJ 4 MG/ML VIAL ONE; -EpHEDrine SULFATE 50MG/5ML SYR ONE; -EpHEDrine SULFATE INJ 50 MG/ML AMP IV PRN; -EpINEphrine HCL INJ 1 MG/ML 1ML SYRINGE ONE; -EpINEphrine INJ 1MG/ML AMP 1 MG/ML AMP ONE; -FENTANYL CITRATE INJ 50 MCG/1 ML 2 ML VIAL IV PRN; -FENTANYL CITRATE INJ 50 MCG/1 ML 2 ML VIAL ONE; -LACTATED RINGER'S 1000ML 1,000 ML IV SCH; -LIDOCAINE HCL 2% 2 ML VIAL (20MG/ML) ONE; -METOCLOPRAMIDE HCL INJ 5 MG/ML 2 ML VIAL IV PRN; -MIDAZOLAM HCL 1 MG/ML 2ML VIAL ONE; -ONDANSETRON INJ 2 MG/ML 2 ML VIAL IV PRN; -ONDANSETRON INJ 2 MG/ML 2 ML VIAL ONE; -OXYCODONE/ACETAMINOPHEN 5-325 TAB PO PRN; -PROPOFOL IV EMULSION 10 MG/ML 20 ML VIAL ONE; -ROCURONIUM BROMIDE 10 MG/ML 5 ML VIAL ONE; -ROPIVACAINE 0.5% 5 MG/ML 30 ML VIAL ONE; -SODIUM CHLORIDE 0.9% 1000ML 1,000 ML IV SCH; -SUCCINYLCHOLINE CHLORIDE 20 MG/ML 10 ML VIAL IV ONE
--- NOTE | 2017-11-22 13:15 | DIAGNOSTIC IMAGING REPORT ---
ULTRASOUND KIDNEYS AND BLADDER CLINICAL HISTORY: Gross hematuria. COMPARISON STUDY: No priors. TECHNIQUE: Real-time, grayscale, and color flow sonography of the kidneys and bladder is performed. Images are reviewed in the transverse and longitudinal planes. FINDINGS: Kidneys: The kidneys are normal in size and echotexture. The right kidney measures 9.9 cm and the left kidney measures 10.1 cm in length. There is no hydronephrosis. No shadowing renal calculi are identified. There is no sonographic evidence of contour deforming renal mass lesion. No perinephric fluid is identified. Bladder: The bladder is largely decompressed and grossly normal in appearance. Ureteral jets were not seen. The endometrial stripe measures 1.7 cm in thickness. IMPRESSION: 1. The kidneys are normal in size and without hydronephrosis. 2. The bladder was decompressed and is grossly unremarkable. 3. The endometrium appears thickened for age measuring up to 1.7 cm. If the patient is postmenopausal this is an abnormal finding and follow-up with the patient's economic development coordinator is recommended. Electronically signed by: Pedrito Clayton M.D. 11/22/2017 1:13 PM Dictated Date/Time: 11/22/2017 1:11 PM
== END | disposition home or self-care (01) ==
LOC: C.ULTR 12:12
PROVIDERS: ATTEND Hospitalist
DX: R31.0 Gross hematuria (principal)

== ENCOUNTER → 2018-02-27 | Outpatient (CLI) | payer OTHER | END | disposition home or self-care (01) | LOC: C.PAPS 19:14 | PROVIDERS: ATTEND Obstetrics & Gynecology | DX: N95.0 Postmenopausal bleeding (principal) ==

== ENCOUNTER → 2018-02-27 | Outpatient (CLI) | payer OTHER | END | disposition home or self-care (01) | LOC: C.PATHSPEC 12:12 | PROVIDERS: ATTEND Obstetrics & Gynecology | DX: N95.0 Postmenopausal bleeding (principal) ==

== ENCOUNTER 2019-11-21 14:07 | Inpatient (IN) ==
[2019-11-21] MEDS ORDERED: DEXAMETHASONE **PF** INJ 10 MG/ML VIAL IV ONE (14:27)
[2019-11-21] MEDS ORDERED: SODIUM CHLORIDE 0.9% 500 ML IV ONE ×2 (14:27→15:49)
[2019-11-21] MEDS ORDERED: ALBUT/IPRATROP 3MG/0.5MG NEB 3 ML VIAL NEB STA (14:28)
--- NOTE | 2019-11-21 14:33 | Emergency Department Note ---
Impression & Plan Pulmonary embolism, Elevated troponin, Elevated brain natriuretic peptide (BNP) level ED Provider Note NAME: PABLO TOLEDO AGE: 59 SEX: F ARRIVES VIA: Walk-In INFORMANT: Patient, ED PROVIDER(S): Rajiv Streeter MD CHIEF COMPLAINT: Shortness of breath PLAN: Disposition: Admit MEDICAL DECISION MAKING: The patient is a pleasant 59-year-old woman with a past medical history of asthma who presents emergency department with worsening shortness of breath with mild congestion over the past week with associated fatigue. She denies any feverishness or objective fevers. She does report decreased appetite. She reports mild loose stools but no frequent diarrhea. She denies any travel to high risk areaas or contact with individuals known to be diagnosed with Covid19. Denies h/o of blood clots. She reports she has been minimally active recently because she gets short of breath so easily. On arrival the patient is in no mildly dyspneic but in no acute distress, afebrile with tachypnea in the low 30s, heart rate in the 130s and initially hypotensive in triage 70s/20s but improved to 120s/70s once in the room. On exam the patient appears clinically dry. She has a scant intermittent wheeze but is mostly clear. EKG demonstrates sinus tachycardia with nonspecific ST and TWA without overt ST elevation. CXR negative for acute process. WBC 13K, nonspecific. H/H and platelets wnl. Chemistry without acidosis. Electrolytes and LFTs unremarkable. Troponin elevated at 0.272 and BNP 6200. Thus, CTA performed and demonstrated extensive PEs and involving throughout all five lobes and involving the right and left main pulmonary arteries. Limited bedside cardiac US performed with suboptimal views 2/2 body habitus and positioning but demonstrates dilated RV with IVS flattening suggestive of heart strain. Upon re-evaluation patient continued to be hemodynamically stable with BP 120-140s/50-100s. She denies any history of GIB or bleeding history otherwise. She is agreeable with plan for admission and treatment with Heparin. Case was discussed with Dr. Gillespie, [facility] hospitalist, who will arrange for [facility] admitting team admission. Case also d/w Dr. White, [place] admitting resident. Triage Nursing notes reviewed and agree them. Prior medical records reviewed Vital Signs: reviewed and remarkable for no significant abnormalities Differential diagnosis: Reactive airway disease, pneumonia, pneumothorax, COPD, CHF, infections, cardiac ischemia, pulmonary embolism, musculoskeletal, gastrointestinal, as well as other pathologies. ER treatment provided: See below. Diagnostics interpreted by me: ECG: Sinus Tachycardia, 122 bpm, Normal axis, S1Q3T3 present, ST and TW abnormalities, no overt ST elevation. Cardiac Monitoring: An order for continuous cardiac monitoring was placed and demonstrated Sinus tachycardia, 122 bpm, no ectopy. Laboratory studies: See below Imaging studies: SINGLE VIEW CHEST CLINICAL HISTORY: Atypical chest pain. FINDINGS: An AP, portable, upright chest radiograph is compared to study dated 10/31/2017. The heart is top normal for projection. There is chronic elevation of right hemidiaphragm with associated atelectasis. No airspace consolidation or pleural effusion is identified. No pneumothorax is seen. The skeletal structures are osteopenic. The bony thorax is grossly intact. Postoperative change is noted in the humeral heads. IMPRESSION: No active disease in the chest. -- CT angio chest PE protocol CLINICAL HISTORY: 59 years-old Female presenting with shortness of breath, atypical chest pain. TECHNIQUE: Multidetector CT angiography of the chest was performed after administration of intravenous contrast. 3-D volumetric and/or maximum intensity projection (MIP) images were subsequently reconstructed for review. IV contrast: 115 mL of Optiray 320. One or more dose lowering techniques were used consistent with the principles of ALARA (as low as reasonably achievable), including automatic exposure control, mA or kV adjustment to individual patient size, and/or use of iterative reconstruction. COMPARISON: Chest x-ray performed earlier today. CT DOSE (mGy.cm): The estimated cumulative dose is 845.99 mGy.cm. FINDINGS: Ring Packer topogram: Unremarkable. Pulmonary vasculature: The study is adequate for assessment of the pulmonary vascular tree. Extensive severe acute pulmonary embolus burden including within the right and left main pulmonary arteries. Emboli evident throughout all five lobes. Main pulmonary artery is not enlarged. No flattening of the interventricular septum. No intracardiac filling defect. Reflux of contrast into the intrahepatic IVC. Remaining chest: Soft tissues: Normal thyroid and thoracic inlet. No axillary, supraclavicular, mediastinal, or hilar lymphadenopathy. Normal aorta. Normal heart size. No pericardial or pleural effusion. Hepatic steatosis. Mild diverticulosis. Lungs and airways: No pneumothorax. Central airways patent. Pulmonary arteries are not significantly enlarged relative to adjacent bronchi. No interlobular septal thickening. No focal infiltrate or nodule. Musculoskeletal: Degenerative changes of the spine. IMPRESSION: 1. Severe acute pulmonary embolus burden throughout all five lobes and involving the right and left main pulmonary arteries without CT evidence of right heart strain. The report will be called/faxed according to standard departmental protocol for a critical finding. ACT 112: Negative or not required by law. Consultation(s): Case was discussed with Dr. Gillespie, [facility] hospitalist. HPI: The patient is a pleasant 59-year-old woman with a past medical history of asthma who presents emergency department with worsening shortness of breath with mild congestion over the past week with associated fatigue. She denies any feverishness or objective fevers. She does report decreased appetite. She reports mild loose stools but no frequent diarrhea. She denies any travel to high risk areaas or contact with individuals known to be diagnosed with Covid19. Denies h/o of blood clots. She reports she has been minimally active recently because she gets short of breath so easily. ROS: See above HPI for pertinent positives & negatives. A total of 10 systems reviewed and were otherwise negative. PAST MEDICAL HISTORY:See Below PAST SURGICAL HISTORY:See Below FAMILY HISTORY:See Below SOCIAL HISTORY:See Below HOME MEDICATIONS:See Below ALLERGIES:See Below VITALS:See Below PHYSICAL EXAMINATION: GENERAL: Awake, alert, mild dyspneic-appearing, in no distress. BMI 45.1 kg/M HENT: Normocephalic, atraumatic. Oropharynx with dry mucous membranes and otherwise unremarkable. EYES: Normal conjunctiva. Sclera non-icteric. NECK: Supple. No nuchal rigidity. FROM. No JVD. RESPIRATORY: Scant intermittent wheezes but mostly clear to auscultation. CARDIAC: Tachycardic rate, normal rhythm. Extremities warm and well perfused. Pulses equal. ABDOMEN: Soft, non-distended. No tenderness to palpation. No rebound or guarding. No masses. RECTAL: Deferred. MUSCULOSKELETAL: Chest examination reveals no tenderness. The back is symmetrical on inspection without obvious abnormality. There is no CVA tenderness to palpation. No joint edema. LOWER EXTREMITIES: Calves are equal size bilaterally and non-tender. No edema. No discoloration. NEURO: Normal sensorium. No sensory or motor deficits noted. SKIN: No rash or jaundice noted. ED COURSE: Procedures: Limited Point of Care Cardiac Ultrasound performed by me: Indication: Shortness of breath, PE Findings: Limited echocardiography with suboptimal views revealed no overt pericardial fluid. RV enlarged with IVS flattening suggestive of right heart strain. Impression: Right heart strain. Critical Care: I have personally spent greater than 70 minutes of critical care time in the direct management of this patient. This includes bedside care, interpretation of diagnostic studies, and testing, discussion with consultants, patient, and family members, and other required patient management activities. This 70 minutes is in excess of all separately billable procedures. Rajiv Streeter MD Past Med/Surg History Medical History Anxiety Asthma rarely uses PRN inh Degenerative disc disease Depression History of colon polyps Morbid obesity Osteoarthritis PTSD (post-traumatic stress disorder) Surgical History History of ankle surgery RIGHT History of bilateral tubal ligation History of colonoscopy History of repair of rotator cuff LEFT = 11/13/17= GRADE 2 VIEW (ANTERIOR), MAC #3, ETT 7.5 AT [facility] Status post hysteroscopic polypectomy 03/2018 [place] Family History Brother Family hx of colon cancer Other No family history of adverse response to anesthesia Social History Preferred Language: Luxembourgish Communication Ability: Effective Visual Impairment: No Limitations Director Of Annual Giving Required: No Beliefs That Will Affect Care: None Current Living Situation: Family Other Information That Helps Us Care for You: No Feels Safe at Home: Yes Safety Concerns: Feels Safe At This Time Smoking Status: Never smoker Tobacco Type: cigarettes ; Cigarettes Per Day: <1/8 PPD X FEW YEARS; QUIT 30+ YEARS AGO ; Second Hand Exposure: No ; Hx Alcohol Use: No Hx Substance Use: No Allergies Allergies Allergy/AdvReac Type Severity Reaction Status Date / Time nickel Allergy Unknown RASH Verified 11/21/19 14:36 Penicillins Allergy Unknown HIVES Verified 11/21/19 14:36 Home Meds Home Medications Medication Instructions Recorded Confirmed Zyrtec 10 mg PO QAM 03/22/18 11/21/19 cyclobenzaprine 5 mg PO BID PRN 05/02/19 11/21/19 albuterol sulfate 1 inh INHALATION QID PRN 07/18/19 11/21/19 duloxetine 30 mg PO QAM 07/18/19 11/21/19 duloxetine [Cymbalta] 60 mg PO QAM 07/18/19 11/21/19 gabapentin 400 mg PO BID 07/18/19 11/21/19 meloxicam 7.5 mg PO BID 07/18/19 11/21/19 venlafaxine [Effexor XR] 150 mg PO QAM 07/18/19 11/21/19 fluticasone propion-salmeterol 1 inh INHALATION BID 11/21/19 11/21/19 [Advair Diskus] Results & Data (ED) Vital Signs Vital Signs - 24 hr 11/21/19 14:08 11/21/19 14:20 11/21/19 14:32 Temperature 36.4 C L Temperature Source Oral Pulse Rate 136 H Pulse Rate [Right Finger] Respiratory Rate 32 H Respiratory Effort / Characteristics Spontaneous Labored Respiratory Depth Retractive Respiratory Pattern Regular Blood Pressure 71/25 L Blood Pressure [Left Arm] Blood Pressure Mean 40 Blood Pressure Mean [Left Arm] Pulse Oximetry 98 97 97 Oxygen Delivery Method Room Air Room Air Oxygen Flow Rate 0 Sepsis Recent Fever Within 48 Hours No Sepsis Action Taken by Nursing No Action Required 11/21/19 14:50 11/21/19 16:07 Temperature Temperature Source Pulse Rate Pulse Rate [Right Finger] 115 H 110 H Respiratory Rate 18 18 Respiratory Effort / Characteristics Non-Labored Spontaneous Respiratory Depth Respiratory Pattern Blood Pressure Blood Pressure [Left Arm] 141/105 H Blood Pressure Mean Blood Pressure Mean [Left Arm] 117 Pulse Oximetry 95 98 Oxygen Delivery Method Nasal Cannula Nasal Cannula Oxygen Flow Rate 1 2 Sepsis Recent Fever Within 48 Hours Sepsis Action Taken by Nursing Laboratory Data Attestation: I reviewed the patient's lab results. Result diagrams: 11/21/19 14:20 11/21/19 14:20 Lab Results 11/21/19 11/21/19 11/21/19 Range/Units 14:20 14:20 14:20 WBC 13.09 H (4.8-10.8) K/uL RBC 4.76 (4.2-5.4) M/uL Hgb 15.1 (12.0-16.0) g/dL Hct 45.8 (37-47) % MCV 96.2 (80-100) fL MCH 31.7 (25-34) pg MCHC 33.0 (32-36) g/dL RDW Std Deviation 47.7 H (36.4-46.3) fL RDW Coeff of Helen 13.6 (11.5-14.5) % Plt Count 262 (130-400) K/uL MPV 10.6 H (7.4-10.4) fL Immature Gran % (Auto) 0.2 % Neut % (Auto) 65.4 % Lymph % (Auto) 27.0 % [place] % (Auto) 6.6 % Eos % (Auto) 0.3 % Baso % (Auto) 0.5 % Immature Gran # (Auto) 0.02 (0.00-0.02) K/uL Neut # (Auto) 8.56 H (1.4-6.5) K/uL Lymph # (Auto) 3.54 H (1.2-3.4) K/uL [place] # (Auto) 0.87 H (0.11-0.59) K/uL Eos # (Auto) 0.04 (0-0.5) K/uL Baso # (Auto) 0.06 (0-0.2) K/uL PT 10.9 (9.0-12.0) Seconds INR 1.0 (0.9-1.1) APTT 26.1 (21.0-31.0) Seconds PTT Ratio 0.9 Sodium 143 (136-145) mmol/L Potassium 4.0 (3.5-5.1) mmol/L Chloride 109 H (98-107) mmol/L Carbon Dioxide 23 (21-32) mmol/L Anion Gap 11.0 (3-11) BUN 14 (7-18) mg/dl Creatinine 1.12 (0.6-1.2) mg/dl Est Cr Clr Drug Dosing 63.9 ml/min Est GFR ( Amer) 62.3 Est GFR (Non-Af Amer) 53.7 BUN/Creatinine Ratio 12.8 (10-20) Glucose 151 H (70-99) mg/dl Calcium 8.9 (8.5-10.1) mg/dl Phosphorus 3.3 (2.5-4.9) mg/dl Magnesium 1.8 (1.8-2.4) mg/dl Total Bilirubin 0.7 (0.2-1) mg/dl Direct Bilirubin 0.2 (0-0.2) mg/dl AST 22 (15-37) U/L ALT 43 (12-78) U/L Alkaline Phosphatase 88 (45-117) U/L Troponin I 0.272 H* (0-0.045) ng/ml NT-Pro-B Natriuret Pep 6239 H (0-900) pg/ml Total Protein 6.7 (6.4-8.2) gm/dl Albumin 3.4 (3.4-5.0) gm/dl Globulin 3.3 (2.5-4.0) gm/dl Albumin/Globulin Ratio 1.0 (0.9-2) Lipase 101 (73-393) U/L TSH 2.450 (0.300-4.500) uIu/ml Administered Medications Gabapentin (Neurontin) 400 mg PO BID GOOD Stop: 12/21/19 20:59 Last Admin: 11/21/19 21:03 Dose: 400 mg Documented by: [id number] Sodium Chloride (Nss 1000ml) 1,000 mls @ 100 mls/hr IV .Q10H GOOD Stop: 12/21/19 18:41 Last Admin: 11/21/19 19:30 Dose: 100 mls/hr Documented by: [id number] Heparin Sodium/Dextrose (Heparin Sodium/Dextrose) 25,000 units in 500 mls @ 27 mls/hr IV .[id number] GOOD; Protocol Stop: 12/21/19 18:41 Last Titration: 11/21/19 23:12 Dose: 1,350 units/hr, 27 mls/hr Documented by: [id number] Cosigned by: [id number] Admin: 11/21/19 20:16 Dose: 1,350 units/hr, 27 mls/hr Documented by: [id number] Cosigned by: [id number] Discontinued Medications Albuterol (Duoneb) 3 ml NEB NOW STA Stop: 11/21/19 14:29 Last Admin: 11/21/19 14:48 Dose: 3 ml Documented by: [id number] Dexamethasone Sodium Phosphate (Decadron Pf) 10 mg IV NOW ONE Stop: 11/21/19 14:28 Last Admin: 11/21/19 14:43 Dose: 10 mg Documented by: [id number] Sodium Chloride (Nss) 500 mls @ 999 mls/hr IV .Q31M ONE Stop: 11/21/19 14:57 Last Infusion: 11/21/19 15:24 Dose: 0 mls/hr Documented by: [id number] Admin: 11/21/19 14:43 Dose: 999 mls/hr Documented by: [id number] Sodium Chloride (Nss) 500 mls @ 999 mls/hr IV .Q31M ONE Stop: 11/21/19 16:19 Last Infusion: 11/21/19 17:38 Dose: 0 mls/hr Documented by: [id number] Admin: 11/21/19 16:40 Dose: 999 mls/hr Documented by: [id number] Heparin Sodium (Porcine) 6,000 (units/ Syringe) 6 mls @ 10 mls/min IV ONE ONE Stop: 11/21/19 19:46 Last Admin: 11/21/19 20:16 Dose: 10 mls/min Documented by: [id number] Cosigned by: [id number] Ioversol (Optiray 320 125ml) 119 ml IV ONCE PRN PRN Reason: Interaction Checking Stop: 11/25/19 15:40 Last Admin: 11/21/19 15:46 Dose: 119 ml Documented by: [id number] Blood Pressure Blood Pressure Findings: Low blood pressure Blood Pressure Disposition: further management by hospitalist Discharge Plan Visit Data *Final* Discharge Date/Time: 11/21/19 17:39 Chief Complaint: Shortness of Breath/Dyspnea Stated Complaint: SOB,ASTHMA ED Provider: Rajiv Streeter Discharge Problem: Pulmonary embolism, Elevated troponin, Elevated brain natriuretic peptide (BNP) level Patient Disposition: Admitted As Inpatient Discharge Instructions Interventions: ED Discharge Assessment Last Done: 11/21/19 17:39 Discharge Problem: Pulmonary embolism Qualifiers: Pulmonary embolism type: unspecified Chronicity: acute Acute cor pulmonale presence: with acute cor pulmonale Qualified Code(s): I26.09 - Other pulmonary embolism with acute cor pulmonale
[2019-11-21 14:39] LABS: Basophils # (auto) 0.06 K/uL (0-0.2); Basophils % (auto) 0.5 %; Eosinophils # (auto) 0.04 K/uL (0-0.5); Eosinophils % (auto) 0.3 %; Hematocrit (blood only) 45.8 % (37-47); Hemoglobin 15.1 g/dL (12.0-16.0); Immature Granulocytes # (auto) 0.02 K/uL (0.00-0.02); Immature Granulocytes % (auto) 0.2 %; Lymphocytes # (auto) 3.54 K/uL (1.2-3.4); Mean Corpuscular Hemoglobin 31.7 pg (25-34); Mean Corpuscular Volume 96.2 fL (80-100); Mean Platelet Volume 10.6 fL (7.4-10.4); Monocytes # (auto) 0.87 K/uL (0.11-0.59); Monocytes % (auto) 6.6 %; Neutrophils # (auto) 8.56 K/uL (1.4-6.5); Neutrophils % (auto) 65.4 %; Platelet Count 262 K/uL (130-400); RDW Coefficient of Variation 13.6 % (11.5-14.5); RDW Standard Deviation 47.7 fL (36.4-46.3); Red Blood Count 4.76 M/uL (4.2-5.4); White Blood Count 13.09 K/uL (4.8-10.8)
[2019-11-21 14:49] LABS: Partial Thromboplastin Ratio 0.9; Partial Thromboplastin Time 26.1 Seconds (21.0-31.0); Prothrombin Time 10.9 Seconds (9.0-12.0)
[2019-11-21 14:52] LABS: Albumin Level 3.4 gm/dl (3.4-5.0); BUN Creatinine Ratio 12.8 (10-20); Bilirubin Direct 0.2 mg/dl (0-0.2); Calcium 8.9 mg/dl (8.5-10.1); Creatinine Clr Calc Pharmacy 63.9 ml/min; Est GFR (African American) 62.3; Est GFR (Non-African American) 53.7; Magnesium 1.8 mg/dl (1.8-2.4)
[2019-11-21 15:04] LABS: Bilirubin,Total 0.7 mg/dl (0.2-1); Globulin 3.3 gm/dl (2.5-4.0); Phosphorus 3.3 mg/dl (2.5-4.9); Thyroid Stimulating Hormone 2.45 uIu/ml (0.300-4.500); Total Protein 6.7 gm/dl (6.4-8.2); Troponin I 0.272 ng/ml (0-0.045)
--- NOTE | 2019-11-21 15:28 | XRay Report ---
SINGLE VIEW CHEST CLINICAL HISTORY: Atypical chest pain. FINDINGS: An AP, portable, upright chest radiograph is compared to study dated 10/31/2017. The heart i s top normal for projection. There is chronic elevation of right hemidiaphragm with associated atelec tasis. No airspace consolidation or pleural effusion is identified. No pneumothorax is seen. The skel etal structures are osteopenic. The bony thorax is grossly intact. Postoperative change is noted in t he humeral heads. IMPRESSION: No active disease in the chest. ACT 112: Negative or not required by law. Electronically signed by: Pedrito Clayton M.D. 11/21/2019 3:26 PM
[2019-11-21] MEDS ORDERED: OPTIRAY 320 125ml IV PRN (15:41)
--- NOTE | 2019-11-21 16:03 | CT Scan Report ---
CT angio chest PE protocol CLINICAL HISTORY: 59 years-old Female presenting with shortness of breath, atypical chest pain. TECHNIQUE: Multidetector CT angiography of the chest was performed after administration of intravenou s contrast. 3-D volumetric and/or maximum intensity projection (MIP) images were subsequently reconst ructed for review. IV contrast: 115 mL of Optiray 320. One or more dose lowering techniques were used consistent with the principles of ALARA (as low as reasonably achievable), including automatic expos ure control, mA or kV adjustment to individual patient size, and/or use of iterative reconstruction. COMPARISON: Chest x-ray performed earlier today. CT DOSE (mGy.cm): The estimated cumulative dose is 845.99 mGy.cm. FINDINGS: [employer] Manager topogram: Unremarkable. Pulmonary vasculature: The study is adequate for assessment of the pulmonary vascular tree. Extensive severe acute pulmonary embolus burden including within the right and left main pulmonary arteries. Emboli evident throughou t all five lobes. Main pulmonary artery is not enlarged. No flattening of the interventricular septum . No intracardiac filling defect. Reflux of contrast into the intrahepatic IVC. Remaining chest: Soft tissues: Normal thyroid and thoracic inlet. No axillary, supraclavicular, mediastinal, or hilar lymphadenopathy. Normal aorta. Normal heart size. No pericardial or pleural effusion. Hepatic steatos is. Mild diverticulosis. Lungs and airways: No pneumothorax. Central airways patent. Pulmonary arteries are not significantly enlarged relative to adjacent bronchi. No interlobular septal thickening. No focal infiltrate or nodu le. Musculoskeletal: Degenerative changes of the spine. IMPRESSION: 1. Severe acute pulmonary embolus burden throughout all five lobes and involving the right and left main pulmonary arteries without CT evidence of right heart strain. The report will be called/faxed according to standard departmental protocol for a critical finding. ACT 112: Negative or not required by law. Electronically signed by: Juan Antonio Mcguire M.D. 11/21/2019 4:02 PM
--- NOTE | 2019-11-21 17:11 | History & Physical Report ---
Date of Service November 21, 2019 Assessment & Plan (1) Pulmonary embolism, bilateral: 59 yo F here with SOB, tachycardia and hypotension, found to have bilateral pulmonary emboli on CTA, for heparin drip. VTE - appears to be unprovoked, this is initial VTE for this patient - she is UTD on all cancer screenings (colon, uterine, cervical, breast) - risk factors include morbid obesity - given tachycardia, elev trop and elev BNP reveals likely heart strain with clot burden - in line with radiographic evidence of bilateral PEs. Plan: - admit to Tele - heparin drip with bolus - oxygen as needed - plan for transition to PO meds (xarelto or eliquis) upon clinical improvement - for minimum 3 months, up to 6 months or more. FEN/GI: HH diet DVT ppx: on heparin drip CODE STATUS: FULL - as discussed w/ patient DISPO: Tele. Lives independently, to home upon discharge. Other chronic conditions: H/o asthma - continue inhalers PRN -- suspect an aspect of obesity hypoventilation syndrome at play as well - would recommend aggressive diet/lifestyle interventions Anxiety / depression - cont home cymbalta, effexor XR Allergies - cont home zyrtec Chronic pain - cont home gabapentin, HOLDING NSAID while on anticoagulation to reduce risk of bleeding (2) Elevated troponin: (3) Dyspnea: (4) Asthma: (5) Anxiety: (6) Depression: (7) Morbid obesity: History of Present Illness Chief Complaint: SOB, BILATERAL PE'S Primary Care Provider: Arthur Flynn This is a 59 yo F with PMH depression, morbid obesity, rotator cuff tears and asthma who presents due to 4 days of worsening shortness of breath. Says it began monday, and is made worse with exertion. Denies chest pain, abdominal pain, hemoptysis, cough or pre syncope or syncope. Denies fevers / chills or n/v/d. Denies sick contacts, no recent travel, no prolonged immobility, no hormone use, no smoking. Has no personal or FH of clots. States she is UTD on colon cancer, cervical cancer and breast cancer screenings. Personal review of her medical records with PCP shows the same. In the ED was found to be hypotensive and hypoxic. CTA chest showed extensive bilateral PE's. She was given fluid boluses and steroids and duonebs. Labs reveal right heart strain (elev trop and BNP) but otherwise unremarkable. Social hx: has not been working since Jul as she has been rehabbing her shoulders after rotator cuff repairs. Allergies Allergy/AdvReac Type Severity Reaction Status Date / Time nickel Allergy Unknown RASH Verified 11/21/19 14:36 Penicillins Allergy Unknown HIVES Verified 11/21/19 14:36 Home Medications Home Medications Medication Instructions Recorded Confirmed Type Zyrtec 10 mg PO QAM 03/22/18 11/21/19 History cyclobenzaprine 5 mg PO BID PRN 05/02/19 11/21/19 History albuterol sulfate 1 inh INHALATION QID PRN 07/18/19 11/21/19 History duloxetine 30 mg PO QAM 07/18/19 11/21/19 History duloxetine [Cymbalta] 60 mg PO QAM 07/18/19 11/21/19 History gabapentin 400 mg PO BID 07/18/19 11/21/19 History meloxicam 7.5 mg PO BID 07/18/19 11/21/19 History venlafaxine [Effexor XR] 150 mg PO QAM 07/18/19 11/21/19 History fluticasone propion-salmeterol 1 inh INHALATION BID 11/21/19 11/21/19 History [Advair Diskus] Past Med/Surg History Social History Preferred Language: Bulgarian Communication Ability: Effective Visual Impairment: No Limitations 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: No Beliefs That Will Affect Care: None Current Living Situation: Family Other Information That Helps Us Care for You: No Feels Safe at Home: Yes Safety Concerns: Feels Safe At This Time Smoking Status: Never smoker Tobacco Type: cigarettes ; Cigarettes Per Day: <1/8 PPD X FEW YEARS; QUIT 30+ YEARS AGO ; Second Hand Exposure: No ; Hx Alcohol Use: No Hx Substance Use: No Review of Systems Review of Systems: All systems reviewed & are unremarkable except as noted in HPI & below SOB fatigue otherwise as above Physical Exam Physical Exam: Vitals noted and within normal limits with the exception of sinus tachycardia and mildly elev BP and hypoxia GENERAL: Awake, alert to person, place, and time, nontoxic-appearing, in mild distress. HENT: Normocephalic, atraumatic. Nasal cannula in place. Mucus membranes appear dry. EYES: Normal conjunctiva. Sclera non-icteric. EOMI. NECK: Supple. Full range of motion. RESPIRATORY: Clear to auscultation. Increased WOB. CARDIAC: Regular rate, normal rhythm. Extremities warm and well perfused, ABDOMEN: Soft, non-distended. No tenderness to palpation. No rebound or guarding. No masses. Bowel sounds are normal. LOWER EXTREMITIES: Inspection of calves reveal equal size bilaterally. No edema. No discoloration. NEURO: No gross focal motor deficits noted. Sensation in tact. CN II-XII gross ly in tact. . SKIN: Rash not present. No jaundice noted. Significant lesions not present. PSYCH: Appropriate mood and affect. Cooperative. Exam as done by Elke White MD, Services Manager. Results & Data Results & Data ([facility]) Vital Signs (Past 12 Hours) Vital Signs Temp Pulse Pulse Resp BP BP Pulse Ox 11/21/19 16:07 110 H 18 141/105 H 98 11/21/19 14:50 115 H 18 95 11/21/19 14:32 97 11/21/19 14:20 97 11/21/19 14:08 36.4 C L 136 H 32 H 71/25 L 98 Laboratory Results 11/21/19 11/21/19 11/21/19 Range/Units 14:20 14:20 14:20 WBC 13.09 H (4.8-10.8) K/uL RBC 4.76 (4.2-5.4) M/uL Hgb 15.1 (12.0-16.0) g/dL Hct 45.8 (37-47) % MCV 96.2 (80-100) fL MCH 31.7 (25-34) pg MCHC 33.0 (32-36) g/dL RDW Std Deviation 47.7 H (36.4-46.3) fL RDW Coeff of Helen 13.6 (11.5-14.5) % Plt Count 262 (130-400) K/uL MPV 10.6 H (7.4-10.4) fL Immature Gran % (Auto) 0.2 % Neut % (Auto) 65.4 % Lymph % (Auto) 27.0 % Ness % (Auto) 6.6 % Eos % (Auto) 0.3 % Baso % (Auto) 0.5 % Immature Gran # (Auto) 0.02 (0.00-0.02) K/uL Neut # (Auto) 8.56 H (1.4-6.5) K/uL Lymph # (Auto) 3.54 H (1.2-3.4) K/uL Ness # (Auto) 0.87 H (0.11-0.59) K/uL Eos # (Auto) 0.04 (0-0.5) K/uL Baso # (Auto) 0.06 (0-0.2) K/uL PT 10.9 (9.0-12.0) Seconds INR 1.0 (0.9-1.1) APTT 26.1 (21.0-31.0) Seconds PTT Ratio 0.9 Sodium 143 (136-145) mmol/L Potassium 4.0 (3.5-5.1) mmol/L Chloride 109 H (98-107) mmol/L Carbon Dioxide 23 (21-32) mmol/L Anion Gap 11.0 (3-11) BUN 14 (7-18) mg/dl Creatinine 1.12 (0.6-1.2) mg/dl Est Cr Clr Drug Dosing 63.9 ml/min Est GFR ( Amer) 62.3 Est GFR (Non-Af Amer) 53.7 BUN/Creatinine Ratio 12.8 (10-20) Glucose 151 H (70-99) mg/dl Calcium 8.9 (8.5-10.1) mg/dl Phosphorus 3.3 (2.5-4.9) mg/dl Magnesium 1.8 (1.8-2.4) mg/dl Total Bilirubin 0.7 (0.2-1) mg/dl Direct Bilirubin 0.2 (0-0.2) mg/dl AST 22 (15-37) U/L ALT 43 (12-78) U/L Alkaline Phosphatase 88 (45-117) U/L Troponin I 0.272 H* (0-0.045) ng/ml NT-Pro-B Natriuret Pep 6239 H (0-900) pg/ml Total Protein 6.7 (6.4-8.2) gm/dl Albumin 3.4 (3.4-5.0) gm/dl Globulin 3.3 (2.5-4.0) gm/dl Albumin/Globulin Ratio 1.0 (0.9-2) Lipase 101 (73-393) U/L TSH 2.450 (0.300-4.500) uIu/ml Diagnostic Findings CHEST CTA WITH BILATERAL PE'S Medications Administered Current Inpatient Medications Ioversol (Optiray 320 125ml) 119 ml IV ONCE PRN PRN Reason: Interaction Checking Stop: 11/25/19 15:40 Last Admin: 11/21/19 15:46 Dose: 119 ml Documented by: Supervising Physician Co-Signing Physician Notes I personally examined the patient and verified all ramachandran points of history and exam, discussed case, and agree with decision making with Dr White. dyspnea. large clot burden noted on CT. no fam hx clotting, doesn't smoke. has been at home but by no means immobilized. vitals noted nad heent nc at mmm breathing unlabored no accessory muscles reg tachycardia no pallor or icterus no focal deficits acute hypoxia, acute right heart strain -- due to PE's - see below acute pulmonary embolism - large clot burden and above findings necessitate admission. anticoagulate (heparin for now, probably transition to DOAC), supportive care. only obvious risk is weight. unprovoked clot showing risk of recurrence 10% 1yr, 30% 5yr - both CHEST and AC Forum guidelines would suggest prolonged anticoaguation (although how long at full dosing would be potentially up for discussion after ~6 months of fully anticoagulating). outpt cancer screenings. given need for extended anticoagulation in some form regardless of cause, no utility in sending hypercoagulable workup. of note, despite thrombogenic effects noted with COVID19, her overall presentation, no infiltrates, no fever, etc fit entirely with PE and not with COVID (and also no lympopenic, leukopenia, no transaminitis). otherwise as above Resident Activity Tracking Resident Involvement: Resident Care Provided Care Provided: Adult Hospital Medicine
[2019-11-21] MEDS ORDERED: ACETAMINOPHEN 325 MG TAB PO PRN (18:42)
[2019-11-21] MEDS ORDERED: POLYETHYLENE (MIRALAX) 17 GM PACK PO PRN (18:42)
[2019-11-21] MEDS ORDERED: ALUMINUM/MAGNESIUM SUSP 30 ML UDC PO PRN (18:42)
[2019-11-21] MEDS ORDERED: MAGNESIUM HYDROXIDE SUSP 30 ML UDC PO PRN (18:42)
[2019-11-21] MEDS ORDERED: CYCLOBENZAPRINE HCL 5 MG TAB PO PRN (18:42)
[2019-11-21] MEDS ORDERED: ZOLPIDEM TARTRATE 5 MG TAB PO PRN (18:42)
[2019-11-21] MEDS ORDERED: ONDANSETRON INJ 2 MG/ML 2 ML VIAL IV PRN (18:42)
[2019-11-21] MEDS ORDERED: ALBUTEROL HFA 8 GM INHALER INH PRN (19:04)
[2019-11-21] MEDS: SODIUM CHLORIDE 0.9% 1000ML 1,000 ML IV SCH (19:30)
--- NOTE | 2019-11-21 19:32 | Billing Data ---
Date of Service November 21, 2019 Coding Level of Care Code 62419 Initial Inpt Care Lvl 3
[2019-11-21] MEDS ORDERED: HEPARIN IV BOLUS 6,000 UNITS in SYRINGE 0 ML IV ONE (19:45)
[2019-11-21] MEDS: HEPARIN SODIUM/DEXTROSE 25,000 UNITS/500 ML BAG IV SCH (20:16)
[2019-11-21] MEDS: GABAPENTIN 400 MG CAP PO SCH (21:03)
[2019-11-21 23:46] LABS: Appearance Urine Slightly Cloudy (Clear); Bilirubin Urine Negative (Negative); Blood Urine Trace (Negative); Color Urine Yellow; Glucose Urine UA Negative (Negative); Ketones Urine Trace (Negative); Leukocyte Esterase Urine Negative (Negative); Nitrite Urine Negative (Negative); Protein Urine Negative (Negative); Specific Gravity Urine 1.015 (1.000-1.030); Urobilinogen Urine Negative (Negative); pH Urine 5.5 (4.5-7.5)
[2019-11-21 23:52] LABS: Epithelial Cell Urine >30 /lpf (0-5)
[2019-11-21 23:53] LABS: Bacteria Urine 1+ (Negative); RBC Urine 0-4 /hpf (0-4); WBC Urine 0-5 /hpf (0-5)
[2019-11-22 04:09] LABS: Partial Thromboplastin Ratio 2.2
[2019-11-22 04:17] LABS: Partial Thromboplastin Time 61.2 Seconds (21.0-31.0)
[2019-11-22] MEDS: SODIUM CHLORIDE 0.9% 1000ML 1,000 ML IV SCH (05:10)
--- NOTE | 2019-11-22 06:21 | Electrocardiogram Report ---
Test Reason : Blood Pressure : / mmHG Vent. Rate : 122 BPM Atrial Rate : 122 BPM P-R Int : 138 ms QRS Dur : 080 ms QT Int : 324 ms P-R-T Axes : 060 072 150 degrees QTc Int : 461 ms Sinus tachycardia Cannot rule out Anterior infarct , age undetermined T wave abnormality, consider anterior ischemia Abnormal ECG No previous ECGs available Confirmed by Josep Shipman ([id number]) on 11/22/2019 6:21:21 AM Referred By: Arthur Flynn Confirmed By:Josep Shipman
[2019-11-22] MEDS: FLUTICASONE/VILANTEROL 100/25MCG 14 PUFFS/INHALER INH SCH (07:47)
[2019-11-22] MEDS: GABAPENTIN 400 MG CAP PO SCH ×2 (07:48→20:09)
[2019-11-22] MEDS: DULOXETINE HCL 60 MG CAP PO SCH (07:49)
[2019-11-22] MEDS: DULOXETINE HCL 30 MG CAP PO SCH (07:49)
[2019-11-22] MEDS: VENLAFAXINE HCL XR 150 MG CAPXR PO SCH (07:49)
[2019-11-22] MEDS: CETIRIZINE HCL 10 MG TABLET PO SCH (07:49)
[2019-11-22 10:57] LABS: Partial Thromboplastin Ratio 1.9
[2019-11-22 11:17] LABS: Partial Thromboplastin Time 52.5 Seconds (21.0-31.0)
[2019-11-22] MEDS: HEPARIN SODIUM/DEXTROSE 25,000 UNITS/500 ML BAG IV SCH (15:31)
--- NOTE | 2019-11-22 15:36 | Hospitalist Progress Note ---
Date of Service November 22, 2019 Assessment & Plan (1) Pulmonary embolism, bilateral: 59 yo F here with SOB, tachycardia and hypotension, found to have bilateral pulmonary emboli on CTA. VTE - appears to be unprovoked, although has been less active these last 6 months given bilateral shoulder repairs/ chronic pain - this is initial VTE for this patient - she is UTD on all cancer screenings (colon, uterine, cervical, breast) - risk factors include morbid obesity - but does not take hormones/ smoke / no FH clots - given tachycardia, elev trop and elev BNP reveals likely heart strain with clot burden - clinically in line with radiographic evidence of bilateral PEs. - covid on the differential however very unlikely given no fever/no loose stools/ no change in taste or smell /no elev LFT or low WBC / no infiltrate on CT scan. Plan: - ok for step down to med/surg - heparin drip with bolus - to be DC'd tonight at 18:00, to start elquis bid at 19:00. - oxygen as needed - DOAC - for minimum 3 months, up to 6 months or more. Defer hypercoagulable work up to PCP. FEN/GI: HH diet DVT ppx: on heparin drip - for eliquis beginning 11/22/19 PM. CODE STATUS: FULL - as discussed w/ patient DISPO: Tele. Lives independently, to home upon discharge. Other chronic conditions: H/o asthma - continue inhalers PRN -- suspect an aspect of obesity hypoventilation syndrome at play as well - would recommend aggressive diet/lifestyle interventions Anxiety / depression - cont home cymbalta, effexor XR Allergies - cont home zyrtec Chronic pain - cont home gabapentin, HOLDING NSAID indefinitely while on anticoagulation to reduce risk of bleeding (2) Elevated troponin: (3) Dyspnea: (4) Asthma: (5) Anxiety: (6) Depression: (7) Morbid obesity: Admission and Anticipated Discharge Date Admission Date: November 21, 2019 Supervising Physician Co-Signing Physician Notes I personally examined the patient and verified all ramachandran points of history and exam, discussed case, and agree with decision making with Dr White. overall feeling about the same - SCOTT persists, fortunately very little to no dyspnea at rest. extensive discussion on dx and management of unprovoked VTE. vitals noted nad heent nc at mmm breathing unlabored no accessory muscles reg tachycardia no pallor or icterus no focal deficits acute hypoxia, acute right heart strain -- due to PE's - see below - clinically stabilized, probably slight improvement acute pulmonary embolism - large clot burden and above findings necessitated admission. doing well without decompensation --> transition to DOAC. only obvious risk is weight. unprovoked clot showing risk of recurrence 10% 1yr, 30% 5yr - both CHEST and AC Forum guidelines would suggest prolonged anticoaguation (although how long at full dosing would be potentially up for discussion after ~6 months of fully anticoagulating). outpt cancer screenings as appropriate. given need for extended anticoagulation in some form regardless of cause, no utility in sending hypercoagulable workup (discussed this with pt -- hypercoagulable workup could "put a face" on clotting but would do essentially nothing to alter her management). of note, despite thrombogenic effects noted with COVID19, her overall presentation, no infiltrates, no fever, etc fit entirely with PE and not with COVID (and also no lympopenic, leukopenia, no transaminitis). otherwise as above, stable for med surg, increase activity - hopefully home in 1-2 days depending on progress/oxygenation/etc Subjective breathlessness continues this morning, still with SCOTT. Tolerating PO. Voiding appropriately. No s/s bleeding, heparin drip running. Discussed hospital stay at length. Pt's daughter called, discussed with patient's daughter -- little suspicion for covid given no fever/no loose stools/no LFT or low WBC / no infiltrate on CT scan. Review of Systems Review of Systems: All systems reviewed & are unremarkable except as noted in HPI & below SCOTT no bleeding no chest pain no nausea/vomiting Physical Exam Physical Exam: Vitals noted and reviewed, as above GENERAL: no acute distress HEAD: normocephalic atraumatic ENT: sclerae normal, trachea midline RESP: increased work of breathing, on 2L NC CV: regular rate and rhythm ABDOMEN: nondistended SKIN: no rashes or jaundice. Looks less pale today, much better color in her face. PSYCH: appropriate mood and affect Results & Data Results & [facility] ([facility]) Vital Signs (Past 12 Hours) Vital Signs Temp Pulse Resp BP BP Pulse Ox 11/22/19 15:17 37.0 C 114 H 20 133/89 93 11/22/19 11:31 36.7 C 110 H 18 139/93 94 11/22/19 07:04 36.6 C 101 H 19 121/86 96 Laboratory Results 11/22/19 11/22/19 11/21/19 Range/Units 10:27 03:33 23:34 APTT 52.5 H* 61.2 H* (21.0-31.0) Seconds PTT Ratio 1.9 2.2 Urine Color Yellow Urine Appearance Slightly Cloudy (Clear) Urine pH 5.5 (4.5-7.5) Ur Specific [place] 1.015 (1.000-1.030) Urine Protein Negative (Negative) Urine Glucose (UA) Negative (Negative) Urine Ketones Trace H (Negative) Urine Blood Trace H (Negative) Urine Nitrite Negative (Negative) Urine Bilirubin Negative (Negative) Urine Urobilinogen Negative (Negative) Ur Leukocyte Esterase Negative (Negative) Urine RBC 0-4 (0-4) /hpf Urine WBC 0-5 (0-5) /hpf Ur Epithelial Cells >30 H (0-5) /lpf Urine Bacteria 1+ H (Negative) Medications Administered Current Inpatient Medications Acetaminophen (Tylenol) 650 mg PO Q4H PRN PRN Reason: Pain or Fever Stop: 12/21/19 18:41 Al Hydrox/Mg Hydrox/Simethicone (Maalox) 15 ml PO Q4H PRN PRN Reason: Dyspepsia Stop: 12/21/19 18:41 Albuterol (Ventolin Hfa) 1 puffs INH Q6R PRN PRN Reason: Shortness Of Breath Or Wheezing Stop: 12/21/19 19:03 Apixaban (Eliquis) 10 mg PO Q12H GOOD Stop: 11/29/19 07:01 Cetirizine HCl (Zyrtec) 10 mg PO QAM GOOD Stop: 12/22/19 08:59 Last Admin: 11/22/19 07:49 Dose: 10 mg Documented by: Cyclobenzaprine HCl (Flexeril) 5 mg PO BID PRN PRN Reason: Spasms Stop: 12/21/19 18:41 Duloxetine HCl (Cymbalta) 60 mg PO QAM [facility] Stop: 12/22/19 08:59 Last Admin: 05/15/20 07:49 Dose: 60 mg Documented by: Duloxetine HCl (Cymbalta) 30 mg PO QAM [facility] Stop: 12/22/19 08:59 Last Admin: 11/22/19 07:49 Dose: 30 mg Documented by: Fluticasone/Vilanterol (Breo Ellipta 100/25 Mcg Inh) 1 puffs INH DAILY [facility]; Protocol Stop: 12/22/19 08:59 Last Admin: 11/22/19 07:47 Dose: 1 puffs Documented by: Gabapentin (Neurontin) 400 mg PO BID [facility] Stop: 12/21/19 20:59 Last Admin: 11/22/19 07:48 Dose: 400 mg Documented by: Heparin Sodium/Dextrose (Heparin Sodium/Dextrose) 25,000 units in 500 mls @ 27 mls/hr IV .[id number] [facility]; Protocol Stop: 11/22/19 18:00 Last Titration: 11/22/19 04:31 Dose: 1,350 units/hr, 27 mls/hr Documented by: Magnesium Hydroxide (Milk Of Magnesia) 30 ml PO Q12H PRN PRN Reason: Constipation Stop: 12/21/19 18:41 Ondansetron HCl (Zofran) 4 mg IV Q6H PRN PRN Reason: Nausea Stop: 12/21/19 18:41 Polyethylene Glycol (Miralax Powder Packet) 17 gm PO DAILY PRN PRN Reason: Constipation Stop: 12/21/19 18:41 Venlafaxine HCl (Effexor Extended Release) [facility] [place] Stop: 12/22/19 08:59 Last Admin: 11/22/19 07:49 Dose: 150 mg Documented by: Zolpidem Tartrate (Ambien) 5 mg PO HS PRN PRN Reason: Sleep Stop: 12/21/19 18:41 Resident Activity Tracking Resident Involvement: Resident Care Provided Care Provided: Adult Hospital Medicine
--- NOTE | 2019-11-22 17:27 | Billing Data ---
Date of Service November 22, 2019 Coding Level of Care Code 78538 Subseq Hosp Care Lvl 3
[2019-11-22] MEDS: APIXABAN 5 MG TABLET PO SCH (18:52)
[2019-11-23] MEDS: APIXABAN 5 MG TABLET PO SCH (06:54)
[2019-11-23] MEDS: VENLAFAXINE HCL XR 150 MG CAPXR PO SCH (07:59)
[2019-11-23] MEDS: DULOXETINE HCL 30 MG CAP PO SCH (07:59)
[2019-11-23] MEDS: FLUTICASONE/VILANTEROL 100/25MCG 14 PUFFS/INHALER INH SCH (07:59)
[2019-11-23] MEDS: DULOXETINE HCL 60 MG CAP PO SCH (08:00)
[2019-11-23] MEDS: CETIRIZINE HCL 10 MG TABLET PO SCH (08:00)
[2019-11-23] MEDS: GABAPENTIN 400 MG CAP PO SCH (08:00)
--- NOTE | 2019-11-23 12:16 | Discharge Summary ---
Date of Service November 23, 2019 Admission HPI Per Admitting Provider This is a 59 yo F with PMH depression, morbid obesity, rotator cuff tears and asthma who presents due to 4 days of worsening shortness of breath. Says it began monday, and is made worse with exertion. Denies chest pain, abdominal pain, hemoptysis, cough or pre syncope or syncope. Denies fevers / chills or n/v/d. Denies sick contacts, no recent travel, no prolonged immobility, no hormone use, no smoking. Has no personal or FH of clots. States she is UTD on colon cancer, cervical cancer and breast cancer screenings. Personal review of her medical records with PCP shows the same. In the ED was found to be hypotensive and hypoxic. CTA chest showed extensive bilateral PE's. She was given fluid boluses and steroids and duonebs. Labs reveal right heart strain (elev trop and BNP) but otherwise unremarkable. Social hx: has not been working since Jul as she has been rehabbing her shoulders after rotator cuff repairs. Principal Diagnosis pe Discharge Exam Constitutional WD/WN, vitals as above Eyes PERRL, conjunctivae normal, anicteric sclerae ENMT external ear and nose normal, oropharynx normal Respiratory normal respiratory effort; no respiratory distress, no labored breathing and does not use accessory muscles Cardiovascular RRR, no murmur, no edema Gastrointestinal (Abdomen) normal bowel sounds, soft, nontender, no hepatosplenomegaly Skin no rashes, warm and dry Psychiatric A+Ox3, euthymic affect Discharge Data Allergies Allergy/AdvReac Type Severity Reaction Status Date / Time nickel Allergy Unknown RASH Verified 11/21/19 14:36 Penicillins Allergy Unknown HIVES Verified 11/21/19 14:36 Consultations 11/21/19 15:51 ED Decision to Admit Stat 11/21/19 18:42 Consult Case Management - Discharge Planning Routine Ordered Studies 11/21/19 15:25 CT angio chest PE protocol Stat 11/21/19 16:09 US point of care ultrasound Stat Hospital Course (1) Pulmonary embolism, bilateral: 59 yo F presented here with SOB, tachycardia and hypotension, found to have bilateral pulmonary emboli on CTA. The following is the medical management during stay here: VTE -Chest CTA: Severe acute pulmonary embolus burden throughout all five lobes and involving the right and left main pulmonary arteries without CT evidence of right heart strain - appears to be unprovoked, although has been less active these last 6 months given bilateral shoulder repairs/ chronic pain - this is initial VTE for this patient -appears that she is UTD on all cancer screenings (colon, uterine, cervical, breast) - risk factors include morbid obesity - but does not take hormones/ smoke / no FH clots - given tachycardia, elev trop and elev BNP reveals likely heart strain with clot burden - clinically in line with radiographic evidence of bilateral PEs. - covid on the differential however very unlikely given no fever/no loose stools/ no change in taste or smell /no elev LFT or low WBC / no infiltrate on CT scan. -pt was initially started on heparin drip with bolus and this was dc'd and pt was started on eliquis 10mg bid, which will cont for 1 week, and thereafter will cont 5mg BID for minimum 3 months, more likely up to 6 months or more (risk of recurrence in unprovoked VTE 10% at 1yr, 25-30% at 5yrs) -at times, pt required oxygen, but passed ambulatory O2 test prior to d/c with good saturations - Defer hypercoagulable work up given that it would not change management expert moving forward H/o asthma - continue inhalers PRN -- suspect an aspect of obesity hypoventilation syndrome at play as well - would recommend aggressive diet/lifestyle interventions Anxiety / depression - cont home cymbalta, effexor XR Allergies - cont home zyrtec Chronic pain - cont home gabapentin, HOLDING NSAID indefinitely while on anticoagulation to reduce risk of bleeding At time of d/c, pt had no other acute concerns or complaints. Total Time Total Time Spent Total Time Spent (In Minutes): 30 Discharge Plan Discharge Items Patient Disposition: Home - Self-Care Reason For Visit: BILATERAL PES Discharge Diagnosis: PE's Activity: Per Instructions section Non-emergency contact: Primary Care Provider Call non-emergency contact if: you have any medication questions and your symptoms worsen Follow-up/Referrals: Arthur Flynn [Primary Care Provider] - (PLEASE CONTACT YOUR PRIMARY CARE PROVIDER TO SCHEDULE A FOLLOW-UP DISCHARGE APPOINTMENT) Diet: Heart Healthy Addtl Attending Provider Instructions: You were admitted for shortness of breath and found to have bilateral clots (pulmonary emboli-PE) in your lungs. Please follow the below instructions on discharge: -you will continue blood thinner medication Eliquis 10 mg twice a day for 1 week. After that, you will take 5mg twice a day. This has been sent to your pharmacy for product picker. Your PCP will determine for how long you need to take this medication, but it will most likely be for at least 6months if not longer -as discussed, we are not doing a hypercoagulable workup to ascertain the cause of your clots because it will not change the management moving forward since you will already be on a blood thinner. However, steps that your family could take to help prevent clots from forming in themselves would be things like walking (i.e. taking a 5 min break every 1-2 hrs when on long car rides), wearing compression stockings on airplanes (or whenever there is a period of extended immobility) -please follow up with your PCP within one week of discharge. We will help arrange this for you Pending Studies at Discharge: No Stand-Alone Forms: My [facility], Smoking Cessation Medications and DC Order Prescriptions: New Eliquis 5 mg tablet See Rx Instructions .ROUTE .COMPLEX Qty: 60 RF: 0 Continued Zyrtec 10 mg Capsule 10 mg PO QAM RF: 0 fluticasone propion-salmeterol [Advair Diskus] 100-50 mcg/dose blister with device 1 inh INHALATION BID RF: 0 cyclobenzaprine 5 mg tablet 5 mg PO BID PRN (Reason: Spasms) RF: 0 gabapentin 400 mg Capsule 400 mg PO BID RF: 0 venlafaxine [Effexor XR] 150 mg Capsule,Extended Release 24hr 150 mg PO QAM RF: 0 duloxetine [Cymbalta] 60 mg Capsule,Delayed Release(Dr/Ec) 60 mg PO QAM RF: 0 duloxetine 30 mg Capsule, Delayed Rel Sprinkle 30 mg PO QAM RF: 0 albuterol sulfate 90 mcg/actuation Aerosol Powdr Breath Activated 1 inh INHALATION QID PRN (Reason: sob) RF: 0 Discontinued meloxicam 15 mg Tablet 7.5 mg PO BID RF: 0 Discharge Orders: Discharge Order (Routine); Ordered 11/23/19 Ordered By: Pete Lundy/Other Patient Handouts: Embolism Pulmonary Admission Data Admit Date/Time: 11/21/19 17:12 Attending Provider: Santiago Rascon Admit Provider: Murali White Primary Care Provider: Arthur Flynn Other Providers: Ayden Gillespie Other Interventions: Discharge Summary Assessment (RN) Last Done: 11/23/19 13:26 DC Date/Time DO NOT enter until pt leaves facility: 11/23/19 13:52 Supervising Physician Co-Signing Physician Notes I personally examined the patient and verified all ramachandran points of history and exam, discussed case, and agree with decision making with Dr Bello. improving and feeling better - still heart goes fast wtih walking but not so much SCOTT as before. notes that she walked around the halls without dropping pulse ox. feels up to going home vitals noted nad heent nc at mmm breathing unlabored no accessory muscles reg tachycardia no pallor or icterus no focal deficits acute hypoxia, acute right heart strain -- due to PE's - see below - clinically improving acute pulmonary embolism - large clot burden and above findings necessitated admission. doing well without decompensation --> transitioned to DOAC and continues to do well. only obvious risk is weight. unprovoked clot showing risk of recurrence 10% 1yr, 30% 5yr - both CHEST and AC Forum guidelines would suggest prolonged anticoaguation (although how long at full dosing would be potentially up for discussion after ~6 months of fully anticoagulating). outpt cancer screenings as appropriate. given need for extended anticoagulation in some form regardless of cause, no utility in sending hypercoagulable workup (discussed this with pt -- hypercoagulable workup could "put a face" on clotting but would do essentially nothing to alter her management). of note, despite thrombogenic effects noted with COVID19, her overall presentation, no infiltrates, no fever, etc fit entirely with PE and not with COVID (and also no lympopenic, leukopenia, no transaminitis). stable for home - discussed monitoring/bleed risk/how to react//manage if bleed w DOAC, discussed activity and monitoring dyspnea/when to slow down/use of a pulse ox as a guide. she expressed good understanding of all. appearing stable for home. otherwise as above Resident Activity Tracking Resident Involvement: Resident Care Provided Care Provided: Adult Hospital Medicine
--- NOTE | 2019-11-23 16:31 | Billing Data ---
Date of Service November 23, 2019 Coding Level of Care Code D/C Day Management <30 mins
== END 2019-11-23 13:52 | disposition home or self-care (01) | DRG 176 ==
LOC: ED 14:07 → 2S 17:12 → 2W 11-22 15:26

== ENCOUNTER 2021-01-28 09:50 | Inpatient (IN) ==
--- NOTE | 2021-01-28 10:25 | Emergency Department Note ---
Impression & Plan Depression with suicidal ideation ED Provider Note Provider: Juan Jose Carlisle MD DATE OF SERVICE: 01/28/2021 CHIEF COMPLAINT: Referred by psychiatrist HISTORY OF PRESENT ILLNESS: Patient is a 60-year-old female history of GERD as well as depression. Follows outpatient therapist and psychiatrist. On medications currently she states she is taking. States over the past several weeks things have been falling apart for unknown reasons. Very fatigued and crying a lot. States she feels anxious. Patient states she is want to but started have some suicidal thoughts today. Has not acted on this. Psychiatric history related including prior hospitalization including last 2 years ago and ECT several decades ago. Patient denies any anger or homicidal ideation. Patient quite tearful in the room. REVIEW OF SYSTEMS: A total of 10 review of systems was obtained and negative except as stated above in the HPI. PAST MEDICAL HISTORY: As noted above MEDICATIONS: Reviewed home medications SOCIAL HISTORY: Lives at home with family PHYSICAL EXAM: GENERAL: alert and oriented laying on bed in room tearful and crying with mask in place. Head: normocephalic and atraumatic EYES: No injection or icterus. NECK: Trachea midline. LUNGS: Airway patent. No retractions. Breath sounds clear with good air entry bilaterally. HEART: Regular rate and rhythm. ABDOMEN: Soft and non-tender, without guarding or rebound. SKIN: Acyanotic, warm, dry, without rashes EXTREMITIES: Without swelling, tenderness or deformity NEUROLOGICAL: No focal deficits. No aphasia. No facial droop or slurred speech. Psych: Endorses anxiety and significant depression tearful and crying during encounter. Relates some thoughts of suicide but does not detail plans to me. Denies any HI. Patient's laboratory studies reviewed. Differential includes Mood disorder, infection, hypoglycemia, electrolyte abnormalities, cardiac sources, intracerebral event, toxicologic, trauma, neurologic, as well as other pathologies. IMPRESSION/MEDICAL DECISION MAKING: Patient significantly depressed and anxious tearful in the room now reporting some suicidal ideations of the does not elaborate to me. Seen with case man shannon. Basic blood work obtained without significant abnormality. Covid test was sent and negative. Believe inpatient psychiatric care would be beneficial for the patient and the severity of her symptoms and with some suicidal ideation; she is wishing for this. Significant psychiatric history reported. Referral to be made. Excepted by [facility] for further inpatient care on a 201. DIAGNOSIS: Depression with suicidal ideation DISPOSITION: to for inpatient psychiatric care on 201 Past Med/Surg History Medical History (Updated 01/28/21 @ 12:40 by Juan Jose Carlisle M.D.) Allergic rhinitis Asthma stable Degenerative disc disease Encounter for pre-operative examination Encounter for pre-operative examination Endometrial thickening on ultrasound Excessive daytime sleepiness GERD (gastroesophageal reflux disease) History of pulmonary embolism Mild persistent asthma Morbid obesity Osteoarthritis Post-menopausal bleeding Post-menopausal bleeding PTSD (post-traumatic stress disorder) Pulmonary embolism 11/2019- on Eliquis/PCP monitoring Snoring Surgical History (Updated 03/13/20 @ 10:55 by Mark Dotson Jr, MD, FACOG) History of ankle surgery RIGHT History of bilateral tubal ligation History of colonoscopy History of repair of rotator cuff LEFT: 11/13/17: Grade 2 view (anterior), MAC#3, ETT 7.5 at [facility] History of repair of rotator cuff Right shoulder scope with RCR: 08/05/19: Grade view 1 with thyroid pressure, MAC#3, ETT 7.0 at [facility] [place] Status post hysteroscopic polypectomy Family History (Updated 01/21/21 @ 10:32 by Frieda Jensen) Brother Colorectal cancer Prostate cancer Mother Kidney stone Uncle , age 75 FH: pancreatic cancer maternal Other Allergy Asthma Cancer Diabetes Kidney disease No family history of adverse response to anesthesia Osteoporosis Social History (Updated 01/21/21 @ 10:32 by Frieda Jensen) Smoking Status: Former smoker Tobacco Type: Cigarettes packs per day: 1; Years Smoked: 3; Cigarettes Per Day: <1/8 PPD X FEW YEARS; QUIT 30+ YEARS AGO; Second Hand Exposure: No; Hx Alcohol Use: No Hx Substance Use: No Preferred Language: Egyptian Communication Ability: Effective Visual Impairment: No Limitations 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 Molding Machine Operator Required: No Beliefs That Will Affect Care: None Current Living Situation: Family Feels Safe at Home: Yes Assistive Devices: None Allergies Allergies Allergy/AdvReac Type Severity Reaction Status Date / Time Penicillins Allergy Intermediate HIVES Verified 01/21/21 08:46 nickel Allergy Mild RASH Verified 01/21/21 08:46 Home Meds Home Medications Medication Instructions Recorded Confirmed cetirizine 10 mg capsule (Zyrtec) 10 mg PO QAM 03/22/18 01/28/21 albuterol sulfate 90 mcg/actuation 1 inh INHALATION QID PRN 07/18/19 01/28/21 breath activated powder inhaler duloxetine 60 mg capsule,delayed 90 mg PO QAM 07/18/19 01/28/21 release (Cymbalta) venlafaxine 150 mg 150 mg PO QAM 07/18/19 01/28/21 capsule,extended release 24 hr (Effexor XR) budesonide-formoterol HFA 160 2 puff INHALATION BID 01/21/21 01/28/21 mcg-4.5 mcg/actuation aerosol inhaler (Symbicort) gabapentin 400 mg capsule 400 mg PO BID cap 01/21/21 01/28/21 omeprazole magnesium 20 mg 20 mg PO DAILY 01/28/21 01/28/21 tablet,delayed release (Prilosec OTC) Results & Data (ED) Vital Signs Vital Signs - 24 hr 01/28/21 10:06 Temperature 36.9 C Temperature Source Oral Pulse Rate 76 Respiratory Rate 19 Respiratory Effort / Characteristics Non-Labored Spontaneous Respiratory Depth Normal Blood Pressure 131/77 Blood Pressure Mean 95 Pulse Oximetry 99 Oxygen Delivery Method Room Air Sepsis Recent Fever Within 48 Hours No Sepsis New/Unexplained Change in Mental Status N/A Sepsis Action Taken by Nursing No Action Required Laboratory Data Result diagrams: 01/28/21 10:59 01/28/21 10:59 Lab Results 01/28/21 01/28/21 01/28/21 Range/Units 10:20 10:20 10:59 WBC 7.60 (4.8-10.8) K/uL RBC 4.55 (4.2-5.4) M/uL Hgb 14.2 (12.0-16.0) g/dL Hct 42.8 (37-47) % MCV 94.1 (80-100) fL MCH 31.2 (25-34) pg MCHC 33.2 (32-36) g/dL RDW Std Deviation 46.4 H (36.4-46.3) fL RDW Coeff of Helen 13.6 (11.5-14.5) % Plt Count 354 (130-400) K/uL MPV 9.8 (7.4-10.4) fL Immature Gran % (Auto) 0.1 % Neut % (Auto) 61.9 % Lymph % (Auto) 28.7 % Mcmullen % (Auto) 7.2 % Eos % (Auto) 1.6 % Baso % (Auto) 0.5 % Neut # (Auto) 4.70 (1.4-6.5) K/uL Lymph # (Auto) 2.18 (1.2-3.4) K/uL Mcmullen # (Auto) 0.55 (0.11-0.59) K/uL Eos # (Auto) 0.12 (0-0.5) K/uL Baso # (Auto) 0.04 (0-0.2) K/uL Immature Gran # (Auto) 0.01 (0.00-0.02) K/uL Sodium (136-145) mmol/L Potassium (3.5-5.1) mmol/L Chloride (98-107) mmol/L Carbon Dioxide (21-32) mmol/L Anion Gap (3-11) BUN (7-18) mg/dl Creatinine (0.6-1.2) mg/dl Est Cr Clr Drug Dosing ml/min Est GFR ( Amer) ml/min Est GFR (Non-Af Amer) ml/min BUN/Creatinine Ratio (10-20) Glucose (70-99) mg/dl Calcium (8.5-10.1) mg/dl Total Bilirubin (0.2-1) mg/dl AST (15-37) U/L ALT (12-78) U/L Alkaline Phosphatase (45-117) U/L Total Protein (6.4-8.2) gm/dl Albumin (3.4-5.0) gm/dl Globulin (2.5-4.0) gm/dl Albumin/Globulin Ratio (0.9-2) TSH (0.300-4.500) uIu/ml Urine Color Yellow Urine Appearance Clear (Clear) Urine pH 6.5 (4.5-7.5) Ur Specific [place] 1.020 (1.000-1.030) Urine Protein Negative (Negative) Urine Glucose (UA) Negative (Negative) Urine Ketones Negative (Negative) Urine Blood Negative (Negative) Urine Nitrite Negative (Negative) Urine Bilirubin Negative (Negative) Urine Urobilinogen Negative (Negative) Ur Leukocyte Esterase Negative (Negative) Salicylates (2.8-20) mg/dl Urine Opiates Screen Neg (Neg) Ur Methadone, Qual Neg (Neg) Acetaminophen (10-30) ug/ml Urine Barbiturates Neg (Neg) Ur Phencyclidine (PCP) Neg (Neg) U Amphetamin/Meth Scrn Neg (Neg) MDMA (Ecstasy) Screen Neg (Neg) U Benzodiazepines Scrn Neg (Neg) Ur Cocaine Metabolite Neg (Neg) U Marijuana (THC) Screen Neg (Neg) Ethyl Alcohol mg/dL (0-3) mg/dl COVID-19 Eval Order SARS-CoV-2 (PCR) (Negative) 01/28/21 01/28/21 01/28/21 Range/Units 10:59 10:59 10:59 WBC (4.8-10.8) K/uL RBC (4.2-5.4) M/uL Hgb (12.0-16.0) g/dL Hct (37-47) % MCV (80-100) fL MCH (25-34) pg MCHC (32-36) g/dL RDW Std Deviation (36.4-46.3) fL RDW Coeff of Helen (11.5-14.5) % Plt Count (130-400) K/uL MPV (7.4-10.4) fL Immature Gran % (Auto) % Neut % (Auto) % Lymph % (Auto) % Mcmullen % (Auto) % Eos % (Auto) % Baso % (Auto) % Neut # (Auto) (1.4-6.5) K/uL Lymph # (Auto) (1.2-3.4) K/uL Mcmullen # (Auto) (0.11-0.59) K/uL Eos # (Auto) (0-0.5) K/uL Baso # (Auto) (0-0.2) K/uL Immature Gran # (Auto) (0.00-0.02) K/uL Sodium 143 (136-145) mmol/L Potassium 4.2 (3.5-5.1) mmol/L Chloride 112 H (98-107) mmol/L Carbon Dioxide 28 (21-32) mmol/L Anion Gap 3.0 (3-11) BUN 17 (7-18) mg/dl Creatinine 0.78 (0.6-1.2) mg/dl Est Cr Clr Drug Dosing 88.8 ml/min Est GFR ( Amer) 95.8 ml/min Est GFR (Non-Af Amer) 82.6 ml/min BUN/Creatinine Ratio 22.0 H (10-20) Glucose 87 (70-99) mg/dl Calcium 8.8 (8.5-10.1) mg/dl Total Bilirubin 0.5 (0.2-1) mg/dl AST 18 (15-37) U/L ALT 24 (12-78) U/L Alkaline Phosphatase 70 (45-117) U/L Total Protein 6.3 L (6.4-8.2) gm/dl Albumin 3.0 L (3.4-5.0) gm/dl Globulin 3.3 (2.5-4.0) gm/dl Albumin/Globulin Ratio 0.9 (0.9-2) TSH 0.880 (0.300-4.500) uIu/ml Urine Color Urine Appearance (Clear) Urine pH (4.5-7.5) Ur Specific [place] (1.000-1.030) Urine Protein (Negative) Urine Glucose (UA) (Negative) Urine Ketones (Negative) Urine Blood (Negative) Urine Nitrite (Negative) Urine Bilirubin (Negative) Urine Urobilinogen (Negative) Ur Leukocyte Esterase (Negative) Salicylates < 1.7 L (2.8-20) mg/dl Urine Opiates Screen (Neg) Ur Methadone, Qual (Neg) Acetaminophen < 2 L (10-30) ug/ml Urine Barbiturates (Neg) Ur Phencyclidine (PCP) (Neg) U Amphetamin/Meth Scrn (Neg) MDMA (Ecstasy) Screen (Neg) U Benzodiazepines Scrn (Neg) Ur Cocaine Metabolite (Neg) U Marijuana (THC) Screen (Neg) Ethyl Alcohol mg/dL < 3.0 (0-3) mg/dl COVID-19 Eval Order SARS-CoV-2 (PCR) (Negative) 01/28/21 01/28/21 Range/Units 11:43 11:43 WBC (4.8-10.8) K/uL RBC (4.2-5.4) M/uL Hgb (12.0-16.0) g/dL Hct (37-47) % MCV (80-100) fL MCH (25-34) pg MCHC (32-36) g/dL RDW Std Deviation (36.4-46.3) fL RDW Coeff of Helen (11.5-14.5) % Plt Count (130-400) K/uL MPV (7.4-10.4) fL Immature Gran % (Auto) % Neut % (Auto) % Lymph % (Auto) % Mcmullen % (Auto) % Eos % (Auto) % Baso % (Auto) % Neut # (Auto) (1.4-6.5) K/uL Lymph # (Auto) (1.2-3.4) K/uL Mcmullen # (Auto) (0.11-0.59) K/uL Eos # (Auto) (0-0.5) K/uL Baso # (Auto) (0-0.2) K/uL Immature Gran # (Auto) (0.00-0.02) K/uL Sodium (136-145) mmol/L Potassium (3.5-5.1) mmol/L Chloride (98-107) mmol/L Carbon Dioxide (21-32) mmol/L Anion Gap (3-11) BUN (7-18) mg/dl Creatinine (0.6-1.2) mg/dl Est Cr Clr Drug Dosing ml/min Est GFR ( Amer) ml/min Est GFR (Non-Af Amer) ml/min BUN/Creatinine Ratio (10-20) Glucose (70-99) mg/dl Calcium (8.5-10.1) mg/dl Total Bilirubin (0.2-1) mg/dl AST (15-37) U/L ALT (12-78) U/L Alkaline Phosphatase (45-117) U/L Total Protein (6.4-8.2) gm/dl Albumin (3.4-5.0) gm/dl Globulin (2.5-4.0) gm/dl Albumin/Globulin Ratio (0.9-2) TSH (0.300-4.500) uIu/ml Urine Color Urine Appearance (Clear) Urine pH (4.5-7.5) Ur Specific [place] (1.000-1.030) Urine Protein (Negative) Urine Glucose (UA) (Negative) Urine Ketones (Negative) Urine Blood (Negative) Urine Nitrite (Negative) Urine Bilirubin (Negative) Urine Urobilinogen (Negative) Ur Leukocyte Esterase (Negative) Salicylates (2.8-20) mg/dl Urine Opiates Screen (Neg) Ur Methadone, Qual (Neg) Acetaminophen (10-30) ug/ml Urine Barbiturates (Neg) Ur Phencyclidine (PCP) (Neg) U Amphetamin/Meth Scrn (Neg) MDMA (Ecstasy) Screen (Neg) U Benzodiazepines Scrn (Neg) Ur Cocaine Metabolite (Neg) U Marijuana (THC) Screen (Neg) Ethyl Alcohol mg/dL (0-3) mg/dl COVID-19 Eval Order Covid19 at [facility] SARS-CoV-2 (PCR) NEGATIVE (Negative) Discharge Plan Visit Data Chief Complaint: Mental Health Evaluation Stated Complaint: PSYCHIATRIST REFERRED ED Provider: Juan Jose Carlisle Discharge Problem: Depression with suicidal ideation Patient Disposition: Transfer Behavioral Health Fac Forms Stand Alone Forms: My [facility], Suicide Prevention Resources Prescriptions Prescriptions: No Action budesonide-formoterol [Symbicort] 160-4.5 mcg/actuation HFA aerosol inhaler 2 puff inhalation BID RF: 0 Zyrtec 10 mg Capsule 10 mg PO QAM RF: 0 venlafaxine [Effexor XR] 150 mg Capsule,Extended Release 24hr 150 mg PO QAM RF: 0 duloxetine [Cymbalta] 60 mg Capsule,Delayed Release(Dr/Ec) 90 mg PO QAM RF: 0 albuterol sulfate 90 mcg/actuation Aerosol Powdr Breath Activated 1 inh INHALATION QID PRN (Reason: sob) RF: 0 gabapentin 400 mg capsule 400 mg PO BID RF: 0 omeprazole magnesium [Prilosec OTC] 20 mg Tablet,Delayed Release (Dr/Ec) 20 mg PO DAILY RF: 0 Referrals Referrals: Arthur Flynn [Physician] -
[2021-01-28 11:16] LABS: Basophils # (auto) 0.04 K/uL (0-0.2); Basophils % (auto) 0.5 %; Eosinophils # (auto) 0.12 K/uL (0-0.5); Eosinophils % (auto) 1.6 %; Hematocrit (blood only) 42.8 % (37-47); Hemoglobin 14.2 g/dL (12.0-16.0); Immature Granulocytes # (auto) 0.01 K/uL (0.00-0.02); Immature Granulocytes % (auto) 0.1 %; Lymphocytes # (auto) 2.18 K/uL (1.2-3.4); Lymphocytes % (auto) 28.7 %; Mean Corpuscular Hemoglobin 31.2 pg (25-34); Mean Corpuscular Hgb Conc 33.2 g/dL (32-36); Mean Corpuscular Volume 94.1 fL (80-100); Mean Platelet Volume 9.8 fL (7.4-10.4); Monocytes # (auto) 0.55 K/uL (0.11-0.59); Monocytes % (auto) 7.2 %; Neutrophils % (auto) 61.9 %; Platelet Count 354 K/uL (130-400); RDW Coefficient of Variation 13.6 % (11.5-14.5); RDW Standard Deviation 46.4 fL (36.4-46.3); Red Blood Count 4.55 M/uL (4.2-5.4)
[2021-01-28 11:41] LABS: Appearance Urine Clear (Clear); Bilirubin Urine Negative (Negative); Blood Urine Negative (Negative); Color Urine Yellow; Glucose Urine UA Negative (Negative); Ketones Urine Negative (Negative); Leukocyte Esterase Urine Negative (Negative); Nitrite Urine Negative (Negative); Protein Urine Negative (Negative); Urobilinogen Urine Negative (Negative); pH Urine 6.5 (4.5-7.5)
[2021-01-28 11:48] LABS: Calcium 8.8 mg/dl (8.5-10.1); Creatinine Clr Calc Pharmacy 88.8 ml/min; Est GFR (African American) 95.8 ml/min; Est GFR (Non-African American) 82.6 ml/min; Potassium 4.2 mmol/L (3.5-5.1)
[2021-01-28 11:59] LABS: Albumin Globulin Ratio 0.9 (0.9-2); Bilirubin,Total 0.5 mg/dl (0.2-1); Globulin 3.3 gm/dl (2.5-4.0); Thyroid Stimulating Hormone 0.88 uIu/ml (0.300-4.500); Total Protein 6.3 gm/dl (6.4-8.2)
[2021-01-28 12:02] LABS: Amphetamines+Metham, Urine Neg (Neg); Barbiturates, Urine Neg (Neg); Benzodiazepine, Urine Neg (Neg); Cocaine, Urine Neg (Neg); MDMA (Ecstacy), Urine Neg (Neg); Methadone, Urine Neg (Neg); Opiate, Urine Neg (Neg); Phencyclidine, Urine Neg (Neg)
[2021-01-28 12:09] LABS: Acetaminophen < 2 ug/ml (10-30); Salicylate < 1.7 mg/dl (2.8-20)
[2021-01-28] MEDS ORDERED: hydrOXYzine HCl 25 MG TAB PO PRN (17:22)
[2021-01-28] MEDS ORDERED: BISMUTH SUBSALICYLATE LIQD 236 ML PO PRN (17:22)
[2021-01-28] MEDS ORDERED: SODIUM CHLORIDE 0.65% NA SOLN 45 ML (OCEAN) PRN (17:22)
[2021-01-28] MEDS ORDERED: ALUMINUM/MAGNESIUM SUSP 30 ML UDC PO PRN (17:22)
[2021-01-28] MEDS ORDERED: MAGNESIUM HYDROXIDE SUSP 30 ML UDC PO PRN (17:22)
[2021-01-28] MEDS ORDERED: ALBUTEROL HFA 8 GM INHALER INH PRN (17:48)
[2021-01-28] MEDS: GABAPENTIN 400 MG CAP PO SCH (21:08)
[2021-01-28] MEDS: diazePAM 5 MG TABLET PO PRN (21:08)
[2021-01-29] MEDS ORDERED: VENLAFAXINE HCL XR 150 MG CAPXR PO SCH (09:00)
[2021-01-29] MEDS: GABAPENTIN 400 MG CAP PO SCH ×2 (09:06→20:42)
[2021-01-29] MEDS: CETIRIZINE HCL 10 MG TABLET PO SCH (09:06)
[2021-01-29] MEDS: PANTOprazole 40 MG TAB PO SCH (09:06)
[2021-01-29] MEDS: DULoxetine HCL 30 MG CAP PO SCH (09:06)
[2021-01-29] MEDS: FLUTICASONE/VILANTEROL 200/25MCG 14 PUFFS/INHALER INH SCH (09:06)
[2021-01-29] MEDS: diazePAM 5 MG TABLET PO PRN ×2 (11:40→20:43)
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
[2021-01-30] MEDS: GABAPENTIN 400 MG CAP PO SCH ×2 (09:33→20:38)
[2021-01-30] MEDS: CETIRIZINE HCL 10 MG TABLET PO SCH (09:33)
[2021-01-30] MEDS: DULoxetine HCL 30 MG CAP PO SCH (09:33)
[2021-01-30] MEDS: FLUTICASONE/VILANTEROL 200/25MCG 14 PUFFS/INHALER INH SCH (09:33)
[2021-01-30] MEDS: PANTOprazole 40 MG TAB PO SCH (09:34)
[2021-01-30] MEDS: VENLAFAXINE HCL XR 37.5 MG CAPXR PO SCH (09:34)
[2021-01-30] MEDS: diazePAM 5 MG TABLET PO PRN ×2 (10:55→22:00)
--- NOTE | 2021-01-30 14:32 | Psychiatric Progress Note ---
Date of Service January 30, 2021 Impression / Recommendations Impression 6-year-old female with history of major depressive disorder presenting with worsening depression and suicidal ideation. Patient will benefit from inpatient hospitalization for purposes of safety, stabilization, medication management. (1) Depression with suicidal ideation: [facility]) on every 15 minute checks (behavioral with suicide precautions for safety. The patient will participate in group, recreational, and milieu therapies and will be offered additional individual and family sessions as clinically appropriate. 01/30/2021atient remains depressed. We will continue with current regimen 01/29/2021atient with significant anxiety unable to articulate points without crying. Will start Valium 5 mg p.o. twice daily as needed. We will also increase antidepressant venlafaxine to 187.5 mg p.o. every morning Protective Factors Assessment Employed: Yes ([employer]) Interval History Chief Complaint "I am still so depressed". Review of Systems Sleep Information Total Hours of Sleep: 8 Meal Information Percent Meal Consumed - Breakfast: 0 Percent Meal Consumed - Lunch: 50 Percent Meal Consumed - Dinner: 50 Nutrition Comment: pt. declined...does not typically eat breakfast. Pt. did drink coffee and kept banana for a mid-morning snack. Subjective Subjective Patient was seen & assessed and interval progress reviewed with treatment team nursing and social work Patient remains isolated in her room, attends occasional groups but spends most of the day laying down. Reports ongoing depression. Little to no improvement in mood at this time. Patient is compliant with medications, and stated that she was able to get some rest last night with the help of the Valium medication. Appetite still remains poor. I spent 30 minutes with the patient, 50% of which was dedicated to counselling and coordination of care. Physical Exam Psychiatric Orientation: alert and oriented x 3 Apperance: appropriately groomed Eye Contact: good eye contact Motor Behavior: no abnormal motor movements Speech: normal rate/rhythm/volume of speech Affect: + depressed affect and + tearful affect Mood: + depressed mood, + anxious mood and + dysphoric mood Thought Process: clear/coherent thought process Thought Content: reality based without delusions, + hopelessness, + worthlessness and + self deprecation Suicidal Thoughts: + reports suicidal thoughts Homicidal Thoughts: denies homicidal thoughts Hallucinations: no auditory hallucinations and no visual hallucinations Cognition: recent memory grossly intact Estimated Intelligence: consistent with education level Insight: + fair insight Judgement: + fair judgement Vital Signs (Past 24 Hours) Last Vital Signs Temp 36.4 C L 01/30/21 07:11 Pulse 88 01/30/21 07:11 Resp 14 01/30/21 07:11 BP 101/71 01/30/21 07:11 Pulse Ox 97 01/28/21 17:10 Results & Data ([facility]) Current Inpatient Medications Current Inpatient Medications: Current Inpatient Medications Acetaminophen (Acetaminophen 325 Mg Tab) 650 mg PO Q4H PRN PRN Reason: Headache or Minor Fever Stop: 02/27/21 17:21 Al Hydrox/Mg Hydrox/Simethicone (Aluminum/Magnesium Susp 30 Ml Udc) 30 ml PO Q4H PRN PRN Reason: GI Upset Stop: 02/27/21 17:21 Albuterol (Albuterol Hfa 8 Gm Inhaler) 1 puffs INH QID PRN PRN Reason: sob Stop: 02/27/21 17:47 Bismuth Subsalicylate (Bismuth Subsalicylate Liqd 236 Ml) 15 ml PO PRN PRN PRN Reason: Loose Stool Stop: 02/27/21 17:21 Cetirizine HCl (Cetirizine Hcl 10 Mg Tablet) 10 mg PO QAM [facility] Stop: 02/28/21 08:59 Last Admin: 01/30/21 09:33 Dose: 10 mg Documented by: Diazepam (Diazepam 5 Mg Tablet) 5 mg PO BID PRN PRN Reason: anxiety Stop: 02/27/21 17:31 Last Admin: 01/30/21 10:55 Dose: 5 mg Documented by: Duloxetine HCl (Duloxetine Hcl 30 Mg Cap) 90 mg PO QAM GOOD Stop: 02/28/21 08:59 Last Admin: 01/30/21 09:33 Dose: 90 mg Documented by: Fluticasone/Vilanterol (Fluticasone/Vilanterol 200/25mcg 14 Puffs/Inhaler) 1 puffs INH DAILY GOOD Stop: 02/28/21 08:59 Last Admin: 01/30/21 09:33 Dose: 1 puffs Documented by: Gabapentin (Gabapentin 400 Mg Cap) 400 mg PO BID [facility] Stop: 02/27/21 20:59 Last Admin: 01/30/21 09:33 Dose: 400 mg Documented by: Hydroxyzine HCl (Hydroxyzine Hcl 25 Mg Tab) 50 mg PO HSZ PRN PRN Reason: Insomnia Stop: 02/27/21 17:21 Hydroxyzine HCl (Hydroxyzine Hcl 25 Mg Tab) 25 mg PO Q4H PRN PRN Reason: Anxiety Stop: 02/27/21 17:21 Magnesium Hydroxide (Magnesium Hydroxide Susp 30 Ml Udc) 30 ml PO DAILY PRN PRN Reason: Constipation Stop: 02/27/21 17:21 Pantoprazole Sodium (Pantoprazole 40 Mg Tab) 40 mg PO DAILY GOOD Stop: 02/28/21 08:59 Last Admin: 01/30/21 09:34 Dose: 40 mg Documented by: Sodium Chloride (Sodium Chloride 0.65% Na Soln 45 Ml ([place])) 1 - 2 sprays NA PRN PRN PRN Reason: Nasal Dryness/Congestion Stop: 02/27/21 17:21 Venlafaxine HCl (Venlafaxine Hcl Xr 37.5 Mg Capxr) 187.5 mg PO QAM [facility] Stop: 03/01/21 08:59 Last Admin: 01/30/21 09:34 Dose: 187.5 mg Documented by: Mental Health & Subst Abuse Tx Psychiatrist Name of Psychiatrist: Melissa Arceo Psychiatrist's Date of Appointment with Psychiatrist: 02/11/21 Psychiatric Appointment Comment: [phone] Therapist Name of Therapist: [facility] - Dr. Ann Melo Therapist's Therapy Appointment Comment: [address] [facility] [address], [place] Bottom Liner Name of Bottom Liner: . Post Discharge Appointments Primary Care Physician Name Of Family Doctor: [facility] Primary Care Provider Appointment Comment: [address] [facility], [address], [place], [place] Contact Information Discharge Discharge Address: [address] [place] [id number]
[2021-01-31] MEDS: DULoxetine HCL 30 MG CAP PO SCH (09:01)
[2021-01-31] MEDS: CETIRIZINE HCL 10 MG TABLET PO SCH (09:01)
[2021-01-31] MEDS: FLUTICASONE/VILANTEROL 200/25MCG 14 PUFFS/INHALER INH SCH (09:04)
[2021-01-31] MEDS: GABAPENTIN 400 MG CAP PO SCH ×2 (09:05→20:34)
[2021-01-31] MEDS: VENLAFAXINE HCL XR 37.5 MG CAPXR PO SCH (09:05)
[2021-01-31] MEDS: PANTOprazole 40 MG TAB PO SCH (09:05)
--- NOTE | 2021-01-31 13:07 | Psychiatric Progress Note ---
Date of Service January 31, 2021 Impression / Recommendations Impression 6-year-old female with history of major depressive disorder presenting with worsening depression and suicidal ideation. Patient will benefit from inpatient hospitalization for purposes of safety, stabilization, medication management. (1) Depression with suicidal ideation: The patient was admitted to the [facility] ([facility] mental health unit) on every 15 minute checks (behavioral with suicide precautions for safety. The patient will participate in group, recreational, and milieu therapies and will be offered additional individual and family sessions as clinically appropriate. 01/31/2021- Will down taper and ecnetually discontinue Effexor, with plan of replacing with Wellbutrin. Dose will be lowered to 75mg PO daily starting tomorrow. 01/30/2021atient remains depressed. We will continue with current regimen 01/29/2021atient with significant anxiety unable to articulate points without crying. Will start Valium 5 mg p.o. twice daily as needed. We will also increase antidepressant venlafaxine to 187.5 mg p.o. every morning Protective Factors Assessment Employed: Yes ([employer]) Interval History Chief Complaint "Thank you so much". Review of Systems Sleep Information Total Hours of Sleep: 8 Meal Information Percent Meal Consumed - Breakfast: 0 Percent Meal Consumed - Lunch: 50 Percent Meal Consumed - Dinner: 50 Nutrition Comment: pt. does not typically eat breakfast but did have coffee Subjective Subjective Patient was seen & assessed and interval progress reviewed with treatment team nursing and social work. Patient continues with poor mood and poor appetite. Able to sleep with help of medications. Patient is complaint with medications and open to medication changes. I spent 30 minutes with the patient, 50% of which was dedicated to counselling and coordination of care. Physical Exam Psychiatric Orientation: alert and oriented x 3 Apperance: appropriately groomed Eye Contact: good eye contact Motor Behavior: no abnormal motor movements Speech: normal rate/rhythm/volume of speech Affect: + depressed affect and + tearful affect Mood: + depressed mood, + anxious mood and + dysphoric mood Thought Process: clear/coherent thought process Thought Content: reality based without delusions, + hopelessness, + worthlessness and + self deprecation Suicidal Thoughts: + reports suicidal thoughts Homicidal Thoughts: denies homicidal thoughts Hallucinations: no auditory hallucinations and no visual hallucinations Cognition: recent memory grossly intact Estimated Intelligence: consistent with education level Insight: + fair insight Judgement: + fair judgement Vital Signs (Past 24 Hours) Last Vital Signs Temp 36.5 C 01/31/21 06:50 Pulse 85 01/31/21 06:50 Resp 18 01/31/21 06:50 BP 106/73 01/31/21 06:50 Pulse Ox 97 01/28/21 17:10 Results & Data ([facility]) Current Inpatient Medications Current Inpatient Medications: Current Inpatient Medications Acetaminophen (Acetaminophen 325 Mg Tab) 650 mg PO Q4H PRN PRN Reason: Headache or Minor Fever Stop: 02/27/21 17:21 Al Hydrox/Mg Hydrox/Simethicone (Aluminum/Magnesium Susp 30 Ml Udc) 30 ml PO Q4H PRN PRN Reason: GI Upset Stop: 02/27/21 17:21 Albuterol (Albuterol Hfa 8 Gm Inhaler) 1 puffs INH QID PRN PRN Reason: sob Stop: 02/27/21 17:47 Bismuth Subsalicylate (Bismuth Subsalicylate Liqd 236 Ml) 15 ml PO PRN PRN PRN Reason: Loose Stool Stop: 02/27/21 17:21 Cetirizine HCl (Cetirizine Hcl 10 Mg Tablet) 10 mg PO QAM [facility] Stop: 02/28/21 08:59 Last Admin: 01/31/21 09:01 Dose: 10 mg Documented by: Diazepam (Diazepam 5 Mg Tablet) 5 mg PO BID PRN PRN Reason: anxiety Stop: 02/27/21 17:31 Last Admin: 01/30/21 22:00 Dose: 5 mg Documented by: Duloxetine HCl (Duloxetine Hcl 30 Mg Cap) 90 mg PO QAM GOOD Stop: 02/28/21 08:59 Last Admin: 01/31/21 09:01 Dose: 90 mg Documented by: Fluticasone/Vilanterol (Fluticasone/Vilanterol 200/25mcg 14 Puffs/Inhaler) 1 puffs INH DAILY GOOD Stop: 02/28/21 08:59 Last Admin: 01/31/21 09:04 Dose: 1 puffs Documented by: Gabapentin (Gabapentin 400 Mg Cap) 400 mg PO BID GOOD Stop: 02/27/21 20:59 Last Admin: 01/31/21 09:05 Dose: 400 mg Documented by: Hydroxyzine HCl (Hydroxyzine Hcl 25 Mg Tab) 50 mg PO HSZ PRN PRN Reason: Insomnia Stop: 02/27/21 17:21 Hydroxyzine HCl (Hydroxyzine Hcl 25 Mg Tab) 25 mg PO Q4H PRN PRN Reason: Anxiety Stop: 02/27/21 17:21 Magnesium Hydroxide (Magnesium Hydroxide Susp 30 Ml Udc) 30 ml PO DAILY PRN PRN Reason: Constipation Stop: 02/27/21 17:21 Pantoprazole Sodium (Pantoprazole 40 Mg Tab) 40 mg PO DAILY GOOD Stop: 02/28/21 08:59 Last Admin: 01/31/21 09:05 Dose: 40 mg Documented by: Sodium Chloride (Sodium Chloride 0.65% Na Soln 45 Ml ([place])) 1 - 2 sprays NA PRN PRN PRN Reason: Nasal Dryness/Congestion Stop: 02/27/21 17:21 Venlafaxine HCl (Venlafaxine Hcl Xr 75 Mg Capxr) 75 mg PO QAM GOOD Stop: 03/03/21 08:59 Mental Health & Subst Abuse Tx Psychiatrist Name of Psychiatrist: Melissa Arceo Psychiatrist's Date of Appointment with Psychiatrist: 02/11/21 Psychiatric Appointment Comment: [phone] Therapist Name of Therapist: [facility] - Dr. Ann Melo Therapist's Therapy Appointment Comment: [address] [facility] [address], [place] Charge Loader Name of Charge Loader: . Post Discharge Appointments Primary Care Physician Name Of Family Doctor: [facility] Primary Care Provider Appointment Comment: [address] [facility], [address], [place], [place] Contact Information Discharge Discharge Address: [address] [place] [id number]
[2021-01-31] MEDS: diazePAM 5 MG TABLET PO PRN (18:07)
[2021-02-01] MEDS: CETIRIZINE HCL 10 MG TABLET PO SCH (09:02)
[2021-02-01] MEDS: PANTOprazole 40 MG TAB PO SCH (09:02)
[2021-02-01] MEDS: DULoxetine HCL 30 MG CAP PO SCH (09:02)
[2021-02-01] MEDS: VENLAFAXINE HCL XR 75 MG CAPXR PO SCH (09:02)
[2021-02-01] MEDS: GABAPENTIN 400 MG CAP PO SCH ×2 (09:02→21:31)
[2021-02-01] MEDS: FLUTICASONE/VILANTEROL 200/25MCG 14 PUFFS/INHALER INH SCH (09:02)
--- NOTE | 2021-02-01 14:04 | Psychiatric Progress Note ---
Date of Service February 01, 2021 Impression / Recommendations Impression 6-year-old female with history of major depressive disorder presenting with worsening depression and suicidal ideation. Patient will benefit from inpatient hospitalization for purposes of safety, stabilization, medication management. (1) Depression with suicidal ideation: The patient was admitted to the [facility] ([facility] unit) on every 15 minute checks (behavioral with suicide precautions for safety. The patient will participate in group, recreational, and milieu therapies and will be offered additional individual and family sessions as clinically appropriate. 02/01/2021atient is making progress with regards to her ability to interact with peers, however mood remains low. We will continue the plan for down titration and eventual removal of Effexor with cross-taper to Wellbutrin. 01/31/2021- Will down taper and eventually discontinue Effexor, with plan of replacing with Wellbutrin. Dose will be lowered to 75mg PO daily starting tomorr ow. 01/30/2021atient remains depressed. We will continue with current regimen 01/29/2021atient with significant anxiety unable to articulate points without crying. Will start Valium 5 mg p.o. twice daily as needed. We will also increase antidepressant venlafaxine to 187.5 mg p.o. every morning Protective Factors Assessment Employed: Yes ([employer]) Interval History Chief Complaint "I'm depressed". Review of Systems Sleep Information Total Hours of Sleep: 6 Meal Information Percent Meal Consumed - Breakfast: 25 Percent Meal Consumed - Lunch: 50 Percent Meal Consumed - Dinner: 50 Nutrition Comment: pt. had fruit , a few bites of turkey and a few crackers. Pt. is drinking fluids adequately. Subjective Subjective Patient was seen & assessed and interval progress reviewed with treatment team nursing and social work Patient did have some brighter moments in group where she was able to open up. Does complain of occasional suicidal ideation. Mood seems to be only slightly improved despite all. Patient is in agreement with the plan to demonstrate her venlafaxine and start Wellbutrin. She continues to have a poor appetite but is sleeping well with the help of as needed Valium. I spent 30 minutes with the patient, 50% of which was dedicated to counselling and coordination of care. Physical Exam Psychiatric Orientation: alert and oriented x 3 Apperance: appropriately groomed Eye Contact: good eye contact Motor Behavior: no abnormal motor movements Speech: normal rate/rhythm/volume of speech Affect: + depressed affect and + tearful affect Mood: + depressed mood, + anxious mood and + dysphoric mood Thought Process: clear/coherent thought process Thought Content: reality based without delusions, + hopelessness, + worthlessness and + self deprecation Suicidal Thoughts: + reports suicidal thoughts Homicidal Thoughts: denies homicidal thoughts Hallucinations: no auditory hallucinations and no visual hallucinations Cognition: recent memory grossly intact Estimated Intelligence: consistent with education level Insight: + fair insight Judgement: + fair judgement Vital Signs (Past 24 Hours) Last Vital Signs Temp 36.4 C L 02/01/21 06:33 Pulse 90 02/01/21 06:34 Resp 16 02/01/21 06:33 BP 91/67 L 02/01/21 06:34 Pulse Ox 97 01/28/21 17:10 Results & Data ([facility]) Current Inpatient Medications Current Inpatient Medications: Current Inpatient Medications Acetaminophen (Acetaminophen 325 Mg Tab) 650 mg PO Q4H PRN PRN Reason: Headache or Minor Fever Stop: 02/27/21 17:21 Al Hydrox/Mg Hydrox/Simethicone (Aluminum/Magnesium Susp 30 Ml Udc) 30 ml PO Q4H PRN PRN Reason: GI Upset Stop: 02/27/21 17:21 Albuterol (Albuterol Hfa 8 Gm Inhaler) 1 puffs INH QID PRN PRN Reason: sob Stop: 02/27/21 17:47 Bismuth Subsalicylate (Bismuth Subsalicylate Liqd 236 Ml) 15 ml PO PRN PRN PRN Reason: Loose Stool Stop: 02/27/21 17:21 Cetirizine HCl (Cetirizine Hcl 10 Mg Tablet) 10 mg PO QAM GOOD Stop: 02/28/21 08:59 Last Admin: 02/01/21 09:02 Dose: 10 mg Documented by: Diazepam (Diazepam 5 Mg Tablet) 5 mg PO BID PRN PRN Reason: anxiety Stop: 02/27/21 17:31 Last Admin: 01/31/21 18:07 Dose: 5 mg Documented by: Duloxetine HCl (Duloxetine Hcl 30 Mg Cap) 90 mg PO QAM GOOD Stop: 02/28/21 08:59 Last Admin: 02/01/21 09:02 Dose: 90 mg Documented by: Fluticasone/Vilanterol (Fluticasone/Vilanterol 200/25mcg 14 Puffs/Inhaler) 1 puffs INH DAILY GOOD Stop: 02/28/21 08:59 Last Admin: 02/01/21 09:02 Dose: 1 puffs Documented by: Gabapentin (Gabapentin 400 Mg Cap) 400 mg PO BID GOOD Stop: 02/27/21 20:59 Last Admin: 02/01/21 09:02 Dose: 400 mg Documented by: Hydroxyzine HCl (Hydroxyzine Hcl 25 Mg Tab) 50 mg PO HSZ PRN PRN Reason: Insomnia Stop: 02/27/21 17:21 Hydroxyzine HCl (Hydroxyzine Hcl 25 Mg Tab) 25 mg PO Q4H PRN PRN Reason: Anxiety Stop: 02/27/21 17:21 Magnesium Hydroxide (Magnesium Hydroxide Susp 30 Ml Udc) 30 ml PO DAILY PRN PRN Reason: Constipation Stop: 02/27/21 17:21 Pantoprazole Sodium (Pantoprazole 40 Mg Tab) 40 mg PO DAILY GOOD Stop: 02/28/21 08:59 Last Admin: 02/01/21 09:02 Dose: 40 mg Documented by: Sodium Chloride (Sodium Chloride 0.65% Na Soln 45 Ml ([place])) 1 - 2 sprays NA PRN PRN PRN Reason: Nasal Dryness/Congestion Stop: 02/27/21 17:21 Venlafaxine HCl (Venlafaxine Hcl Xr 75 Mg Capxr) 75 mg PO QAM GOOD Stop: 03/03/21 08:59 Last Admin: 02/01/21 09:02 Dose: 75 mg Documented by: Mental Health & Subst Abuse Tx Psychiatrist Name of Psychiatrist: Melissa Arceo Psychiatrist's Date of Appointment with Psychiatrist: 02/11/21 Time of Appointment with Psychiatrist: 3:20 PM Psychiatric Appointment Comment: [id number] Therapist Name of Therapist: [facility] - Dr. 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 Post Discharge Appointments Primary Care Physician Name Of Family Doctor: [facility] Primary Care Provider Appointment Comment: [address] [facility], [address], [place], [place] Contact Information Discharge Discharge Address: [address] [place] [id number]
[2021-02-02] MEDS: DULoxetine HCL 30 MG CAP PO SCH (09:20)
[2021-02-02] MEDS: CETIRIZINE HCL 10 MG TABLET PO SCH (09:20)
[2021-02-02] MEDS: FLUTICASONE/VILANTEROL 200/25MCG 14 PUFFS/INHALER INH SCH (09:20)
[2021-02-02] MEDS: GABAPENTIN 400 MG CAP PO SCH ×2 (09:21→20:49)
[2021-02-02] MEDS: VENLAFAXINE HCL XR 75 MG CAPXR PO SCH (09:21)
[2021-02-02] MEDS: PANTOprazole 40 MG TAB PO SCH (09:21)
[2021-02-02] MEDS: ACETAMINOPHEN 325 MG TAB PO PRN ×2 (12:51→20:49)
--- NOTE | 2021-02-02 15:18 | Psychiatric Progress Note ---
Date of Service February 02, 2021 Impression / Recommendations Impression 60-year-old female with history of major depressive disorder presenting with worsening depression and suicidal ideation. Patient will benefit from inpatient hospitalization for purposes of safety, stabilization, medication management. (1) Depression with suicidal ideation: The patient was admitted to the [facility] ([facility] mental health unit) on every 15 minute checks (behavioral with suicide precautions for safety. The patient will participate in group, recreational, and milieu therapies and will be offered additional individual and family sessions as clinically appropriate. 02/02/2021will lower the dose of Effexor to 37.5 tomorrow and start cross-taper to Wellbutrin. 02/01/2021atient is making progress with regards to her ability to interact with peers, however mood remains low. We will continue the plan for down titration and eventual removal of Effexor with cross-taper to Wellbutrin. 01/31/2021- Will down taper and eventually discontinue Effexor, with plan of replacing with Wellbutrin. Dose will be lowered to 75mg PO daily starting tomorrow. 01/30/2021atient remains depressed. We will continue with current regimen 01/29/2021atient with significant anxiety unable to articulate points without crying. Will start Valium 5 mg p.o. twice daily as needed. We will also increase antidepressant venlafaxine to 187.5 mg p.o. every morning Protective Factors Assessment Employed: Yes ([employer]) Interval History Chief Complaint "I am just so sad". Review of Systems Sleep Information Total Hours of Sleep: 6.25 Meal Information Percent Meal Consumed - Breakfast: 0 Percent Meal Consumed - Lunch: 75 Percent Meal Consumed - Dinner: 45 Nutrition Comment: pt. does not typically eat breakfast but is OOR and drank coffee and water. Subjective Subjective Patient was seen & assessed and interval progress reviewed with treatment team nursing and social work Patient acknowledges being very depressed during the day especially at night. She did have some better moments yesterday where she was able to converse and laugh with peers. Still overall reports poor mood with minimal to no progress. Patient was told that this is expected being that we are still lowering her down off of her second SNRI medication prior to initiating Wellbutrin. She is in agreement with the plan. Denies any side effects at this time aside from some headaches which can be attributed to the discontinuation from Effexor. Patient was encouraged to use as needed Valium to aid with sleep if needed. Appetite remains poor sleep is decent estimated at 6.25 hours last night. I spent 30 minutes with the patient, 50% of which was dedicated to counselling and coordination of care. Physical Exam Psychiatric Orientation: alert and oriented x 3 Apperance: appropriately groomed Eye Contact: good eye contact Motor Behavior: no abnormal motor movements Speech: normal rate/rhythm/volume of speech Affect: + depressed affect and + tearful affect Mood: + depressed mood, + anxious mood and + dysphoric mood Thought Process: clear/coherent thought process Thought Content: reality based without delusions, + hopelessness, + worthlessness and + self deprecation Suicidal Thoughts: + reports suicidal thoughts Homicidal Thoughts: denies homicidal thoughts Hallucinations: no auditory hallucinations and no visual hallucinations Cognition: recent memory grossly intact Estimated Intelligence: consistent with education level Insight: + fair insight Judgement: + fair judgement Vital Signs (Past 24 Hours) Last Vital Signs Temp 36.5 C 02/02/21 06:51 Pulse 94 H 02/02/21 06:51 Resp 16 02/02/21 06:51 BP 100/70 02/02/21 06:51 Pulse Ox 97 01/28/21 17:10 Results & Data ([facility]) Current Inpatient Medications Current Inpatient Medications: Current Inpatient Medications Acetaminophen (Acetaminophen 325 Mg Tab) 650 mg PO Q4H PRN PRN Reason: Headache or Minor Fever Stop: 02/27/21 17:21 Last Admin: 02/02/21 12:51 Dose: 650 mg Documented by: Al Hydrox/Mg Hydrox/Simethicone (Aluminum/Magnesium Susp 30 Ml Udc) 30 ml PO Q4H PRN PRN Reason: GI Upset Stop: 02/27/21 17:21 Albuterol (Albuterol Hfa 8 Gm Inhaler) 1 puffs INH QID PRN PRN Reason: sob Stop: 02/27/21 17:47 Bismuth Subsalicylate (Bismuth Subsalicylate Liqd 236 Ml) 15 ml PO PRN PRN PRN Reason: Loose Stool Stop: 02/27/21 17:21 Cetirizine HCl (Cetirizine Hcl 10 Mg Tablet) 10 mg PO QAM GOOD Stop: 02/28/21 08:59 Last Admin: 02/02/21 09:20 Dose: 10 mg Documented by: Diazepam (Diazepam 5 Mg Tablet) 5 mg PO BID PRN PRN Reason: anxiety Stop: 02/27/21 17:31 Last Admin: 01/31/21 18:07 Dose: 5 mg Documented by: Duloxetine HCl (Duloxetine Hcl 30 Mg Cap) 90 mg PO QAM GOOD Stop: 02/28/21 08:59 Last Admin: 02/02/21 09:20 Dose: 90 mg Documented by: Fluticasone/Vilanterol (Fluticasone/Vilanterol 200/25mcg 14 Puffs/Inhaler) 1 puffs INH DAILY GOOD Stop: 02/28/21 08:59 Last Admin: 02/02/21 09:20 Dose: 1 puffs Documented by: Gabapentin (Gabapentin 400 Mg Cap) 400 mg PO BID GOOD Stop: 02/27/21 20:59 Last Admin: 02/02/21 09:21 Dose: 400 mg Documented by: Hydroxyzine HCl (Hydroxyzine Hcl 25 Mg Tab) 50 mg PO HSZ PRN PRN Reason: Insomnia Stop: 02/27/21 17:21 Hydroxyzine HCl (Hydroxyzine Hcl 25 Mg Tab) 25 mg PO Q4H PRN PRN Reason: Anxiety Stop: 02/27/21 17:21 Magnesium Hydroxide (Magnesium Hydroxide Susp 30 Ml Udc) 30 ml PO DAILY PRN PRN Reason: Constipation Stop: 02/27/21 17:21 Pantoprazole Sodium (Pantoprazole 40 Mg Tab) 40 mg PO DAILY GOOD Stop: 02/28/21 08:59 Last Admin: 02/02/21 09:21 Dose: 40 mg Documented by: Sodium Chloride (Sodium Chloride 0.65% Na Soln 45 Ml ([place])) 1 - 2 sprays NA PRN PRN PRN Reason: Nasal Dryness/Congestion Stop: 02/27/21 17:21 Venlafaxine HCl (Venlafaxine Hcl Xr 75 Mg Capxr) 75 mg PO QAM GOOD Stop: 03/03/21 08:59 Last Admin: 02/02/21 09:21 Dose: 75 mg Documented by: Mental Health & Subst Abuse Tx Psychiatrist Name of Psychiatrist: Melissa Arceo Psychiatrist's Date of Appointment with Psychiatrist: 02/11/21 Time of Appointment with Psychiatrist: 3:20 PM Psychiatric Appointment Comment: [phone] Therapist Name of Therapist: [facility] - Dr. Ann Melo Therapist's Date of Therapist Appointment: 02/11/21 Time of Therapist Appointment: 9:00 am Therapy Appointment Comment: [address] [facility] [address], [place] Forensic Document Examiner Name of Forensic Document Examiner: . Post Discharge Appointments Primary Care Physician Name Of Family Doctor: [facility] Primary Care Provider Appointment Comment: [address] [facility], [address], [place], [place] Contact Information Discharge Discharge Address: [address] [place] [address] AK[place] Linder [id number]
[2021-02-02] MEDS: diazePAM 5 MG TABLET PO PRN (20:49)
[2021-02-02] MEDS ORDERED: buPROPion HCl 75 MG TABLET PO SCH (21:00)
[2021-02-03] MEDS: GABAPENTIN 400 MG CAP PO SCH ×2 (09:05→20:27)
[2021-02-03] MEDS: PANTOprazole 40 MG TAB PO SCH (09:05)
[2021-02-03] MEDS: VENLAFAXINE HCL XR 37.5 MG CAPXR PO SCH (09:05)
[2021-02-03] MEDS: DULoxetine HCL 30 MG CAP PO SCH (09:05)
[2021-02-03] MEDS: CETIRIZINE HCL 10 MG TABLET PO SCH (09:05)
[2021-02-03] MEDS: buPROPion HCl 75 MG TABLET PO SCH ×2 (09:05→20:27)
[2021-02-03] MEDS: FLUTICASONE/VILANTEROL 200/25MCG 14 PUFFS/INHALER INH SCH (09:06)
[2021-02-04] MEDS: hydrOXYzine HCl 25 MG TAB PO PRN (02:07)
[2021-02-04] MEDS: diazePAM 5 MG TABLET PO PRN ×3 (04:34→21:00)
[2021-02-04] MEDS: DULoxetine HCL 30 MG CAP PO SCH (11:01)
[2021-02-04] MEDS: buPROPion HCl 75 MG TABLET PO SCH (11:01)
[2021-02-04] MEDS: CETIRIZINE HCL 10 MG TABLET PO SCH (11:01)
[2021-02-04] MEDS: FLUTICASONE/VILANTEROL 200/25MCG 14 PUFFS/INHALER INH SCH (11:02)
[2021-02-04] MEDS: GABAPENTIN 400 MG CAP PO SCH ×2 (11:02→21:00)
[2021-02-04] MEDS: PANTOprazole 40 MG TAB PO SCH (11:03)
[2021-02-04] MEDS: VENLAFAXINE HCL XR 37.5 MG CAPXR PO SCH (11:03)
[2021-02-04] MEDS: ACETAMINOPHEN 325 MG TAB PO PRN (13:22)
--- NOTE | 2021-02-04 16:14 | Psychiatric Progress Note ---
Date of Service February 04, 2021 Impression / Recommendations Impression 60-year-old female with history of major depressive disorder presenting with worsening depression and suicidal ideation. Patient will benefit from inpatient hospitalization for purposes of safety, stabilization, medication management. (1) Depression with suicidal ideation: The patient was admitted to the [facility] ([facility] mental health unit) on every 15 minute checks (behavioral with suicide precautions for safety. The patient will participate in group, recreational, and milieu therapies and will be offered additional individual and family sessions as clinically appropriate. 02/04/2021will change Wellbutrin to XL formulation starting tomorrow morning. Will discontinue Effexor. We will continue with duloxetine 90 mg p.o. every morning. 02/02/2021will lower the dose of Effexor to 37.5 tomorrow and start cross-taper to Wellbutrin. 02/01/2021atient is making progress with regards to her ability to interact with peers, however mood remains low. We will continue the plan for down titration and eventual removal of Effexor with cross-taper to Wellbutrin. 01/31/2021- Will down taper and eventually discontinue Effexor, with plan of replacing with Wellbutrin. Dose will be lowered to 75mg PO daily starting tomorrow. 01/30/2021atient remains depressed. We will continue with current regimen 01/29/2021atient with significant anxiety unable to articulate points without crying. Will start Valium 5 mg p.o. twice daily as needed. We will also increase antidepressant venlafaxine to 187.5 mg p.o. every morning Protective Factors Assessment Employed: Yes ([employer]) Interval History Chief Complaint "Im still so sad". Review of Systems Sleep Information Total Hours of Sleep: 2.25 Sleep Comments: pt given vistaril and valium per rn. pt on q-15 minute checks Meal Information Percent Meal Consumed - Breakfast: 0 Percent Meal Consumed - Lunch: 0 Percent Meal Consumed - Dinner: 50 Nutrition Comment: pt. had coffee and water Subjective Subjective Patient was seen & assessed and interval progress reviewed with treatment team nursing and social work. Patient continues with very depressed mood. Often tearful and hard to communicate with. Valium seems to help her be able to speak and open up without nonstop crying. Patient's mood has had to improve, she is compliant with the medication without any reported side effects. Appetite remains poor. Sleep remains poor. I spent 30 minutes with the patient, 50% of which was dedicated to counselling and coordination of care. Physical Exam Psychiatric Orientation: alert and oriented x 3 Apperance: appropriately groomed Eye Contact: good eye contact Motor Behavior: no abnormal motor movements Speech: normal rate/rhythm/volume of speech Affect: + depressed affect and + tearful affect Mood: + depressed mood, + anxious mood and + dysphoric mood Thought Process: clear/coherent thought process Thought Content: reality based without delusions, + hopelessness, + worthlessness and + self deprecation Suicidal Thoughts: + reports suicidal thoughts Homicidal Thoughts: denies homicidal thoughts Hallucinations: no auditory hallucinations and no visual hallucinations Cognition: recent memory grossly intact Estimated Intelligence: consistent with education level Insight: + fair insight Judgement: + fair judgement Vital Signs (Past 24 Hours) Last Vital Signs Temp 36.8 C 02/04/21 14:19 Pulse 70 02/04/21 14:19 Resp 16 02/03/21 06:47 BP 139/97 02/04/21 14:19 Pulse Ox 96 02/04/21 14:19 Results & Data ([facility]) Current Inpatient Medications Current Inpatient Medications: Current Inpatient Medications Acetaminophen (Acetaminophen 325 Mg Tab) 650 mg PO Q4H PRN PRN Reason: Headache or Minor Fever Stop: 02/27/21 17:21 Last Admin: 02/04/21 13:22 Dose: 650 mg Documented by: Al Hydrox/Mg Hydrox/Simethicone (Aluminum/Magnesium Susp 30 Ml Udc) 30 ml PO Q4H PRN PRN Reason: GI Upset Stop: 02/27/21 17:21 Albuterol (Albuterol Hfa 8 Gm Inhaler) 1 puffs INH QID PRN PRN Reason: sob Stop: 02/27/21 17:47 Bismuth Subsalicylate (Bismuth Subsalicylate Liqd 236 Ml) 15 ml PO PRN PRN PRN Reason: Loose Stool Stop: 02/27/21 17:21 Bupropion HCl (Bupropion Hcl 75 Mg Tablet) 75 mg PO BID GOOD Stop: 03/05/21 08:59 Last Admin: 02/04/21 11:01 Dose: 75 mg Documented by: Cetirizine HCl (Cetirizine Hcl 10 Mg Tablet) 10 mg PO QAM GOOD Stop: 02/28/21 08:59 Last Admin: 02/04/21 11:01 Dose: 10 mg Documented by: Diazepam (Diazepam 5 Mg Tablet) 5 mg PO BID PRN PRN Reason: anxiety Stop: 02/27/21 17:31 Last Admin: 02/04/21 13:14 Dose: 5 mg Documented by: Duloxetine HCl (Duloxetine Hcl 30 Mg Cap) 90 mg PO QAM GOOD Stop: 02/28/21 08:59 Last Admin: 02/04/21 11:01 Dose: 90 mg Documented by: Fluticasone/Vilanterol (Fluticasone/Vilanterol 200/25mcg 14 Puffs/Inhaler) 1 puffs INH DAILY GOOD Stop: 02/28/21 08:59 Last Admin: 02/04/21 11:02 Dose: 1 puffs Documented by: Gabapentin (Gabapentin 400 Mg Cap) 400 mg PO BID GOOD Stop: 02/27/21 20:59 Last Admin: 02/04/21 11:02 Dose: 400 mg Documented by: Hydroxyzine HCl (Hydroxyzine Hcl 25 Mg Tab) 50 mg PO HSZ PRN PRN Reason: Insomnia Stop: 02/27/21 17:21 Last Admin: 02/04/21 02:07 Dose: 50 mg Documented by: Hydroxyzine HCl (Hydroxyzine Hcl 25 Mg Tab) 25 mg PO Q4H PRN PRN Reason: Anxiety Stop: 02/27/21 17:21 Magnesium Hydroxide (Magnesium Hydroxide Susp 30 Ml Udc) 30 ml PO DAILY PRN PRN Reason: Constipation Stop: 02/27/21 17:21 Pantoprazole Sodium (Pantoprazole 40 Mg Tab) 40 mg PO DAILY GOOD Stop: 02/28/21 08:59 Last Admin: 02/04/21 11:03 Dose: 40 mg Documented by: Sodium Chloride (Sodium Chloride 0.65% Na Soln 45 Ml ([place])) 1 - 2 sprays NA PRN PRN PRN Reason: Nasal Dryness/Congestion Stop: 02/27/21 17:21 Venlafaxine HCl (Venlafaxine Hcl Xr 37.5 Mg Capxr) 37.5 mg PO QAM GOOD Stop: 03/05/21 08:59 Last Admin: 02/04/21 11:03 Dose: 37.5 mg Documented by: Mental Health & Subst Abuse Tx Psychiatrist Name of Psychiatrist: Melissa Arceo Psychiatrist's Date of Appointment with Psychiatrist: 02/11/21 Time of Appointment with Psychiatrist: 3:20 PM Psychiatric Appointment Comment: [phone] Therapist Name of Therapist: [facility] - Dr. Ann Melo Therapist's Date of Therapist Appointment: 02/11/21 Time of Therapist Appointment: 9:00 am Therapy Appointment Comment: [address] [facility] [address], [place] Web Pressman Name of Web Pressman: . Post Discharge Appointments Primary Care Physician Name Of Family Doctor: [facility] Primary Care Provider Appointment Comment: [address] [facility], [place], [place] Contact Information Discharge Discharge Address: [address] [place] [address]
[2021-02-04] MEDS ORDERED: buPROPion HCl 75 MG TABLET PO SCH (17:45)
[2021-02-05] MEDS: buPROPion XL 150 MG TABCR PO SCH (09:33)
[2021-02-05] MEDS: CETIRIZINE HCL 10 MG TABLET PO SCH (09:33)
[2021-02-05] MEDS: FLUTICASONE/VILANTEROL 200/25MCG 14 PUFFS/INHALER INH SCH (09:34)
[2021-02-05] MEDS: GABAPENTIN 400 MG CAP PO SCH ×2 (09:34→20:32)
[2021-02-05] MEDS: DULoxetine HCL 30 MG CAP PO SCH (09:34)
[2021-02-05] MEDS: PANTOprazole 40 MG TAB PO SCH (09:34)
--- NOTE | 2021-02-05 10:18 | Psychiatric Progress Note ---
Date of Service February 05, 2021 Impression / Recommendations Impression 60-year-old female with history of major depressive disorder presenting with worsening depression and suicidal ideation. Patient will benefit from inpatient hospitalization for purposes of safety, stabilization, medication management. (1) Depression with suicidal ideation: The patient was admitted to the [facility] ([facility]) on every 15 minute checks (behavioral with suicide precautions for safety. The patient will participate in group, recreational, and milieu therapies and will be offered additional individual and family sessions as clinically appropriate. 02/05/2021atient now taking 150 mg of Wellbutrin XL every morning, duloxetine 90 mg every morning. Valium 5 mg p.o. twice daily as needed will be decreased to 2.5 mg p.o. twice daily as needed. 02/04/2021will change Wellbutrin to XL formulation starting tomorrow morning. Will discontinue Effexor. We will continue with duloxetine 90 mg p.o. every morning. 02/02/2021will lower the dose of Effexor to 37.5 tomorrow and start cross-taper to Wellbutrin. 02/01/2021atient is making progress with regards to her ability to interact with peers, however mood remains low. We will continue the plan for down titration and eventual removal of Effexor with cross-taper to Wellbutrin. 01/31/2021- Will down taper and eventually discontinue Effexor, with plan of replacing with Wellbutrin. Dose will be lowered to 75mg PO daily starting tomorrow. 01/30/2021atient remains depressed. We will continue with current regimen 01/29/2021atient with significant anxiety unable to articulate points without crying. Will start Valium 5 mg p.o. twice daily as needed. We will also increase antidepressant venlafaxine to 187.5 mg p.o. every morning Protective Factors Assessment Employed: Yes ([employer]) Interval History Chief Complaint "Good morning". Review of Systems Sleep Information Total Hours of Sleep: 7 Sleep Comments: pt given vistaril per rn. pt on q-15 minute checks Meal Information Percent Meal Consumed - Breakfast: 0 Percent Meal Consumed - Lunch: 0 Percent Meal Consumed - Dinner: 40 Nutrition Comment: pt. had coffee and water Subjective Subjective Patient was seen & assessed and interval progress reviewed with treatment team nursing and social work Per report patient got a good night of sleep. She is still reporting poor appetite. Regarding her mood, patient still feels depressed and hopeless. She does not report any improvement from prior however she does seem somewhat more willing to engage in groups as well as speak to peers. Denies any side effects of the current regimen. Conversing with family on the phone without issue. Patient is reassured by their statements of wellbeing. I spent 30 minutes with the patient, 50% of which was dedicated to counselling and coordination of care. Physical Exam Psychiatric Orientation: alert and oriented x 3 Apperance: appropriately groomed Eye Contact: good eye contact Motor Behavior: no abnormal motor movements Speech: normal rate/rhythm/volume of speech Affect: + depressed affect and + tearful affect Mood: + depressed mood, + anxious mood and + dysphoric mood Thought Process: clear/coherent thought process Thought Content: reality based without delusions, + hopelessness, + worthlessness and + self deprecation Suicidal Thoughts: + reports suicidal thoughts Homicidal Thoughts: denies homicidal thoughts Hallucinations: no auditory hallucinations and no visual hallucinations Cognition: recent memory grossly intact Estimated Intelligence: consistent with education level Insight: + fair insight Judgement: + fair judgement Vital Signs (Past 24 Hours) Last Vital Signs Temp 36.3 C L 02/05/21 06:47 Pulse 94 H 02/05/21 06:48 Resp 16 02/05/21 06:47 BP 124/87 02/05/21 06:48 Pulse Ox 96 02/04/21 14:19 Results & Data ([facility]) Current Inpatient Medications Current Inpatient Medications: Current Inpatient Medications Acetaminophen (Acetaminophen 325 Mg Tab) 650 mg PO Q4H PRN PRN Reason: Headache or Minor Fever Stop: 02/27/21 17:21 Last Admin: 02/04/21 13:22 Dose: 650 mg Documented by: Al Hydrox/Mg Hydrox/Simethicone (Aluminum/Magnesium Susp 30 Ml Udc) 30 ml PO Q4H PRN PRN Reason: GI Upset Stop: 02/27/21 17:21 Albuterol (Albuterol Hfa 8 Gm Inhaler) 1 puffs INH QID PRN PRN Reason: sob Stop: 02/27/21 17:47 Bismuth Subsalicylate (Bismuth Subsalicylate Liqd 236 Ml) 15 ml PO PRN PRN PRN Reason: Loose Stool Stop: 02/27/21 17:21 Bupropion HCl (Bupropion Xl 150 Mg Tabcr) 150 mg PO QAM [facility] Stop: 03/07/21 08:59 Last Admin: 02/05/21 09:33 Dose: 150 mg Documented by: Cetirizine HCl (Cetirizine Hcl 10 Mg Tablet) 10 mg PO QAM GOOD Stop: 02/28/21 08:59 Last Admin: 02/05/21 09:33 Dose: 10 mg Documented by: Diazepam (Diazepam 5 Mg Tablet) 5 mg PO BID PRN PRN Reason: anxiety Stop: 02/27/21 17:31 Last Admin: 02/04/21 21:00 Dose: 5 mg Documented by: Duloxetine HCl (Duloxetine Hcl 30 Mg Cap) 90 mg PO QAM [facility] Stop: 02/28/21 08:59 Last Admin: 02/05/21 09:34 Dose: 90 mg Documented by: Fluticasone/Vilanterol (Fluticasone/Vilanterol 200/25mcg 14 Puffs/Inhaler) 1 puffs INH DAILY [facility] Stop: 02/28/21 08:59 Last Admin: 02/05/21 09:34 Dose: 1 puffs Documented by: Gabapentin (Gabapentin 400 Mg Cap) 400 mg PO BID [facility] Stop: 02/27/21 20:59 Last Admin: 02/05/21 09:34 Dose: 400 mg Documented by: Hydroxyzine HCl (Hydroxyzine Hcl 25 Mg Tab) 50 mg PO HSZ PRN PRN Reason: Insomnia Stop: 02/27/21 17:21 Last Admin: 02/04/21 02:07 Dose: 50 mg Documented by: Hydroxyzine HCl (Hydroxyzine Hcl 25 Mg Tab) 25 mg PO Q4H PRN PRN Reason: Anxiety Stop: 02/27/21 17:21 Magnesium Hydroxide (Magnesium Hydroxide Susp 30 Ml Udc) 30 ml PO DAILY PRN PRN Reason: Constipation Stop: 02/27/21 17:21 Pantoprazole Sodium (Pantoprazole 40 Mg Tab) 40 mg PO DAILY GOOD Stop: 02/28/21 08:59 Last Admin: 02/05/21 09:34 Dose: 40 mg Documented by: Sodium Chloride (Sodium Chloride 0.65% Na Soln 45 Ml ([place])) 1 - 2 sprays NA PRN PRN PRN Reason: Nasal Dryness/Congestion Stop: 02/27/21 17:21 Mental Health & Subst Abuse Tx Psychiatrist Name of Psychiatrist: Melissa Arceo Psychiatrist's Date of Appointment with Psychiatrist: 02/11/21 Time of Appointment with Psychiatrist: 3:20 PM Psychiatric Appointment Comment: [id number] Therapist Name of Therapist: [facility] - Dr. Ann Melo Therapist's Date of Therapist Appointment: 02/11/21 Time of Therapist Appointment: 9:00 am Therapy Appointment Comment: [address], [place] Medical Biller Name of Medical Biller: . Post Discharge Appointments Primary Care Physician Name Of Family Doctor: [facility] Primary Care Provider Appointment Comment: [address], [address], [place], [place] Contact Information Discharge Discharge Address: [address] [place] [id number]
[2021-02-05] MEDS: hydrOXYzine HCl 25 MG TAB PO PRN (23:32)
[2021-02-06] MEDS: FLUTICASONE/VILANTEROL 200/25MCG 14 PUFFS/INHALER INH SCH (09:13)
[2021-02-06] MEDS: CETIRIZINE HCL 10 MG TABLET PO SCH (09:14)
[2021-02-06] MEDS: PANTOprazole 40 MG TAB PO SCH (09:14)
[2021-02-06] MEDS: DULoxetine HCL 30 MG CAP PO SCH (09:14)
[2021-02-06] MEDS: buPROPion XL 150 MG TABCR PO SCH (09:14)
[2021-02-06] MEDS: GABAPENTIN 400 MG CAP PO SCH ×2 (09:14→20:11)
--- NOTE | 2021-02-06 09:33 | Psychiatric Progress Note ---
Date of Service February 06, 2021 Impression / Recommendations Impression 60-year-old female with history of major depressive disorder presenting with worsening depression and suicidal ideation. Patient will benefit from inpatient hospitalization for purposes of safety, stabilization, medication management. Reviewed Dr. Adams's impression in italics on 02/06/21--minimal change (1) Depression with suicidal ideation: 02/06/21 Dr. Adams's care plan reviewed (in italics below). Discussed that Wellbutrin can cause jitteriness if titrated too quickly and that benzodiazepines are nervous system depressants. Would recommend augmentation with Abilify which she has taken successfully before, most recently after her [facility] hospitalization 2 years ago. States that helped/well tolerated but was $70 a month so she did not refill. Reviewed good rx, generic and ability to split tabs, will start 2.5 mg today and titrate while confirming out of pocket cost. She believes she may have met her deductible. Discussed limited past ECT trial and possible TMS refrerral. Risks/benefits/alternatives were reviewed re: antipsychotics for mood and/or psychosis. Discussion included but was not limited to metabolic side effects, risks of TD and suicidal thoughts. There were no abnormal motor movements at baseline. Fasting glucose and lipid panel ordered for baseline monitoring. The patient was [facility] to [facility] ([facility] inpatient mental health unit) on every 15 minute checks (behavioral with suicide precautions for safety. The patient will participate in group, recreational, and milieu therapies and will b e offered additional individual and family sessions as clinically appropriate. 02/05/2021atient now taking 150 mg of Wellbutrin XL every morning, duloxetine 90 mg every morning. Valium 5 mg p.o. twice daily as needed will be decreased to 2.5 mg p.o. twice daily as needed. 02/04/2021will change Wellbutrin to XL formulation starting tomorrow morning. Will discontinue Effexor. We will continue with duloxetine 90 mg p.o. every morning. 02/02/2021will lower the dose of Effexor to 37.5 tomorrow and start cross-taper to Wellbutrin. 02/01/2021atient is making progress with regards to her ability to interact with peers, however mood remains low. We will continue the plan for down titration and eventual removal of Effexor with cross-taper to Wellbutrin. 01/31/2021- Will down taper and eventually discontinue Effexor, with plan of replacing with Wellbutrin. Dose will be lowered to 75mg PO daily starting tomorrow. 01/30/2021atient remains depressed. We will continue with current regimen 01/29/2021atient with significant anxiety unable to articulate points without crying. Will start Valium 5 mg p.o. twice daily as needed. We will also increase antidepressant venlafaxine to 187.5 mg p.o. every morning Protective Factors Assessment Employed: Yes ([employer]) Interval History Identifying Information 60 yo female admit on 201 for severe depression and hopelessness. Chief Complaint "I'm sorry I need help and am not getting better". Review of Systems Sleep Information Total Hours of Sleep: 4.5 Sleep Comments: pt given vistaril per rn. pt on q-15 minute checks Meal Information Percent Meal Consumed - Breakfast: 0 Percent Meal Consumed - Lunch: 50 Percent Meal Consumed - Dinner: 40 Nutrition Comment: pt. had coffee and water Subjective Subjective Patient was seen & assessed and interval progress reviewed with nursing and social work. Scheduled for meeting with daughter this afternoon but unclear if patient well enough to follow through. Is sleeping at this time so sleep listed below not accurate. With Vistaril prn. Received prn Valium for breakthrough panic like crying spells. Physical Exam Psychiatric Orientation: alert and oriented x 3 Apperance: appropriately groomed Eye Contact: good eye contact Motor Behavior: no abnormal motor movements Speech: normal rate/rhythm/volume of speech Affect: + depressed affect and + tearful affect Mood: + depressed mood and + anxious mood Thought Content: reality based without delusions, + hopelessness and + self deprecation Suicidal Thoughts: + reports suicidal thoughts Homicidal Thoughts: denies homicidal thoughts Hallucinations: no auditory hallucinations and no visual hallucinations Estimated Intelligence: consistent with education level Insight: + fair insight Judgement: + fair judgement Vital Signs (Past 24 Hours) Last Vital Signs Temp 36.4 C L 02/06/21 06:33 Pulse 81 02/06/21 06:34 Resp 16 02/06/21 06:33 BP 115/79 02/06/21 06:34 Pulse Ox 96 02/04/21 14:19 Results & Data ([facility]) Current Inpatient Medications Current Inpatient Medications: Current Inpatient Medications Acetaminophen (Acetaminophen 325 Mg Tab) 650 mg PO Q4H PRN PRN Reason: Headache or Minor Fever Stop: 02/27/21 17:21 Last Admin: 02/04/21 13:22 Dose: 650 mg Documented by: Al Hydrox/Mg Hydrox/Simethicone (Aluminum/Magnesium Susp 30 Ml Udc) 30 ml PO Q4H PRN PRN Reason: GI Upset Stop: 02/27/21 17:21 Albuterol (Albuterol Hfa 8 Gm Inhaler) 1 puffs INH QID PRN PRN Reason: sob Stop: 02/27/21 17:47 Bismuth Subsalicylate (Bismuth Subsalicylate Liqd 236 Ml) 15 ml PO PRN PRN PRN Reason: Loose Stool Stop: 02/27/21 17:21 Bupropion HCl (Bupropion Xl 150 Mg Tabcr) 150 mg PO QAM [facility] Stop: 03/07/21 08:59 Last Admin: 02/06/21 09:14 Dose: 150 mg Documented by: Cetirizine HCl (Cetirizine Hcl 10 Mg Tablet) 10 mg PO QAM [facility] Stop: 02/28/21 08:59 Last Admin: 02/06/21 09:14 Dose: 10 mg Documented by: Diazepam (Diazepam 5 Mg Tablet) 5 mg PO BID PRN PRN Reason: anxiety Stop: 02/27/21 17:31 Last Admin: 02/04/21 21:00 Dose: 5 mg Documented by: Duloxetine HCl (Duloxetine Hcl 30 Mg Cap) 90 mg PO QAM [facility] Stop: 02/28/21 08:59 Last Admin: 02/06/21 09:14 Dose: 90 mg Documented by: Fluticasone/Vilanterol (Fluticasone/Vilanterol 200/25mcg 14 Puffs/Inhaler) 1 puffs INH DAILY [facility] Stop: 02/28/21 08:59 Last Admin: 02/06/21 09:13 Dose: 1 puffs Documented by: Gabapentin (Gabapentin 400 Mg Cap) 400 mg PO BID [facility] Stop: 02/27/21 20:59 Last Admin: 02/06/21 09:14 Dose: 400 mg Documented by: Hydroxyzine HCl (Hydroxyzine Hcl 25 Mg Tab) 50 mg PO HSZ PRN PRN Reason: Insomnia Stop: 02/27/21 17:21 Last Admin: 02/05/21 23:32 Dose: 50 mg Documented by: Hydroxyzine HCl (Hydroxyzine Hcl 25 Mg Tab) 25 mg PO Q4H PRN PRN Reason: Anxiety Stop: 02/27/21 17:21 Magnesium Hydroxide (Magnesium Hydroxide Susp 30 Ml Udc) 30 ml PO DAILY PRN PRN Reason: Constipation Stop: 02/27/21 17:21 Pantoprazole Sodium (Pantoprazole 40 Mg Tab) 40 mg PO DAILY [facility] Stop: 02/28/21 08:59 Last Admin: 02/06/21 09:14 Dose: 40 mg Documented by: Sodium Chloride (Sodium Chloride 0.65% Na Soln 45 Ml ([place])) 1 - 2 sprays NA PRN PRN PRN Reason: Nasal Dryness/Congestion Stop: 02/27/21 17:21 Mental Health & Subst Abuse Tx Psychiatrist Name of Psychiatrist: Melissa Arceo Psychiatrist's Date of Appointment with Psychiatrist: 02/11/21 Time of Appointment with Psychiatrist: 3:20 PM Psychiatric Appointment Comment: [id number] Therapist Name of Therapist: [facility] - Dr. Ann Melo Therapist's Date of Therapist Appointment: 02/11/21 Time of Therapist Appointment: 9:00 am Therapy Appointment Comment: [address], [place] Inbound Sales Advisor Name of Inbound Sales Advisor: . Post Discharge Appointments Primary Care Physician Name Of Family Doctor: [facility] Primary Care Provider Appointment Comment: [address] [facility] [address], [address], [place], [place] Contact Information Discharge Discharge Address: [address] [place] [id number]
[2021-02-06] MEDS ORDERED: diazePAM 5 MG TABLET PO PRN (10:53)
[2021-02-06] MEDS: ARIPiprazole 5 MG TAB PO SCH (12:34)
[2021-02-07] MEDS: ARIPiprazole 5 MG TAB PO SCH (08:58)
[2021-02-07] MEDS: buPROPion XL 150 MG TABCR PO SCH (08:58)
[2021-02-07] MEDS: CETIRIZINE HCL 10 MG TABLET PO SCH (08:58)
[2021-02-07] MEDS: DULoxetine HCL 30 MG CAP PO SCH (08:58)
[2021-02-07] MEDS: FLUTICASONE/VILANTEROL 200/25MCG 14 PUFFS/INHALER INH SCH (08:59)
[2021-02-07] MEDS: GABAPENTIN 400 MG CAP PO SCH ×2 (08:59→20:22)
[2021-02-07] MEDS: PANTOprazole 40 MG TAB PO SCH (08:59)
[2021-02-07 09:15] LABS: Glucose Fasting 85 mg/dl (70-99)
[2021-02-07 09:22] LABS: Chol HDL Ratio 3; Cholesterol 147 mg/dl (0-200); HDL Cholesterol 50 mg/dl; LDL Cholesterol Calculated 86 mg/dl; Triglycerides 53 mg/dl (0-150); VLDL Cholesterol 11 mg/dl
[2021-02-07] MEDS ORDERED: ARIPiprazole 5 MG TAB PO ONE (11:00)
--- NOTE | 2021-02-07 13:42 | Psychiatric Progress Note ---
Date of Service February 07, 2021 Impression / Recommendations Impression 60-year-old female with history of major depressive disorder presenting with worsening depression and suicidal ideation. Patient will benefit from inpatient hospitalization for purposes of safety, stabilization, medication management. Reviewed Dr. Adams's impression in italics on 02/06/21--minimal change though more verbal today. (1) Depression with suicidal ideation: 02/07/21 Titrate Abilify to 5 mg daily. Titrate Wellbutrin to 300 mg XL starting tomorrow to further trial. metabolic labs reviewed. Staff confirmed cost is <$20/month. 02/06/21 Dr. Adams's care plan reviewed (in italics below). Discussed that Wellbutrin can cause jitteriness if titrated too quickly and that benzodiazepines are nervous system depressants. Would recommend augmentation with Abilify which she has taken successfully before, most recently after her [facility] hospitalization 2 years ago. States that helped/well tolerated but was $70 a month so she did not refill. Reviewed good rx, generic and ability to split tabs, will start 2.5 mg today and titrate while confirming out of pocket cost. She believes she may have met her deductible. Discussed limited past ECT trial and possible TMS refrerral. Risks/benefits/alternatives were reviewed re: antipsychotics for mood and/or psychosis. Discussion included but was not limited to metabolic side effects, risks of TD and suicidal thoughts. There were no abnormal motor movements at baseline. Fasting glucose and lipid panel ordered for baseline monitoring. The patient was admitted to the [facility] ([facility] mental health unit) on every 15 minute checks (behavioral with suicide precautions for safety. The patient will participate in group, recreational, and milieu therapies and will be offered additional individual and family sessions as clinically appropriate. 02/05/2021atient now taking 150 mg of Wellbutrin XL every morning, duloxetine 90 mg every morning. Valium 5 mg p.o. twice daily as needed will be decreased to 2.5 mg p.o. twice daily as needed. 02/04/2021will change Wellbutrin to XL formulation starting tomorrow morning. Will discontinue Effexor. We will continue with duloxetine 90 mg p.o. every morning. 02/02/2021will lower the dose of Effexor to 37.5 tomorrow and start cross-taper to Wellbutrin. 02/01/2021atient is making progress with regards to her ability to interact with peers, however mood remains low. We will continue the plan for down titration and eventual removal of Effexor with cross-taper to Wellbutrin. 01/31/2021- Will down taper and eventually discontinue Effexor, with plan of replacing with Wellbutrin. Dose will be lowered to 75mg PO daily starting tomorrow. 01/30/2021atient remains depressed. We will continue with current regimen 01/29/2021atient with significant anxiety unable to articulate points without crying. Will start Valium 5 mg p.o. twice daily as needed. We will also increase antidepressant venlafaxine to 187.5 mg p.o. every morning Protective Factors Assessment Employed: Yes ([employer]) Interval History Identifying Information 60 yo female admit on for severe depression and hopelessness. Chief Complaint "It was a long day, I just want people to know I'm trying". Review of Systems Sleep Information Total Hours of Sleep: 9.5 Sleep Comments: pt given vistaril per rn. pt on q-15 minute checks Meal Information Percent Meal Consumed - Breakfast: 10 Percent Meal Consumed - Lunch: 100 Percent Meal Consumed - Dinner: 50 Nutrition Comment: pt drank coffee Subjective Subjective Patient was seen & assessed and interval progress reviewed with nursing. Long meeting with daughter. Is more open in asking for help. was tearful about 18 month old grandson seeing her in the window due to visitor restrictions. Attending groups. Still reports forcing self to eat and getting lost in her guilt. Related that she feels "horrible" for everyone lost to COVID and for the woman who in the [facility]. Clearly states "I know I can't be safe outside of the hospital", referring to ongoing SI. No intent or plan to self harm on unit. Physical Exam Psychiatric Orientation: alert and oriented x 3 Apperance: appropriately groomed Eye Contact: good eye contact Motor Behavior: no abnormal motor movements Speech: normal rate/rhythm/volume of speech Affect: + depressed affect and + tearful affect Mood: + depressed mood and + anxious mood Thought Process: clear/coherent thought process Thought Content: reality based without delusions, + hopelessness, + worthlessness and + self deprecation Suicidal Thoughts: + reports suicidal thoughts Homicidal Thoughts: denies homicidal thoughts Hallucinations: no auditory hallucinations and no visual hallucinations Cognition: recent memory grossly intact Estimated Intelligence: consistent with education level Insight: + fair insight Judgement: + fair judgement Vital Signs (Past 24 Hours) Last Vital Signs Temp 36.5 C 02/07/21 06:57 Pulse 97 H 02/07/21 06:57 Resp 16 02/07/21 06:57 BP 114/83 02/07/21 06:57 Pulse Ox 96 02/04/21 14:19 Results & Data ([facility]) Laboratory Results Laboratory Results - last 24 hr 02/07/21 08:15 Fasting Glucose 85 Triglycerides 53 Cholesterol 147 LDL Cholesterol, Calc 86 VLDL Cholesterol, Calc 11 HDL Cholesterol 50 Cholesterol/HDL Ratio 3 Current Inpatient Medications Current Inpatient Medications: Current Inpatient Medications Acetaminophen (Acetaminophen 325 Mg Tab) 650 mg PO Q4H PRN PRN Reason: Headache or Minor Fever Stop: 02/27/21 17:21 Last Admin: 02/04/21 13:22 Dose: 650 mg Documented by: Al Hydrox/Mg Hydrox/Simethicone (Aluminum/Magnesium Susp 30 Ml Udc) 30 ml PO Q4H PRN PRN Reason: GI Upset Stop: 02/27/21 17:21 Albuterol (Albuterol Hfa 8 Gm Inhaler) 1 puffs INH QID PRN PRN Reason: sob Stop: 02/27/21 17:47 Aripiprazole (Aripiprazole 5 Mg Tab) 5 mg PO QAM GOOD Stop: 03/10/21 08:59 Bismuth Subsalicylate (Bismuth Subsalicylate Liqd 236 Ml) 15 ml PO PRN PRN PRN Reason: Loose Stool Stop: 02/27/21 17:21 Bupropion HCl (Bupropion Xl 300 Mg Tabcr) 300 mg PO QAM [facility] Stop: 03/10/21 08:59 Cetirizine HCl (Cetirizine Hcl 10 Mg Tablet) 10 mg PO QAM [facility] Stop: 02/28/21 08:59 Last Admin: 02/07/21 08:58 Dose: 10 mg Documented by: Diazepam (Diazepam 5 Mg Tablet) 2.5 mg PO BID PRN PRN Reason: anxiety Stop: 02/27/21 17:31 Duloxetine HCl (Duloxetine Hcl 30 Mg Cap) 90 mg PO QAM [facility] Stop: 02/28/21 08:59 Last Admin: 02/07/21 08:58 Dose: 90 mg Documented by: Fluticasone/Vilanterol (Fluticasone/Vilanterol 200/25mcg 14 Puffs/Inhaler) 1 puffs INH DAILY [facility] Stop: 02/28/21 08:59 Last Admin: 02/07/21 08:59 Dose: 1 puffs Documented by: Gabapentin (Gabapentin 400 Mg Cap) 400 mg PO BID [facility] Stop: 02/27/21 20:59 Last Admin: 02/07/21 08:59 Dose: 400 mg Documented by: Hydroxyzine HCl (Hydroxyzine Hcl 25 Mg Tab) 50 mg PO HSZ PRN PRN Reason: Insomnia Stop: 02/27/21 17:21 Last Admin: 02/05/21 23:32 Dose: 50 mg Documented by: Hydroxyzine HCl (Hydroxyzine Hcl 25 Mg Tab) 25 mg PO Q4H PRN PRN Reason: Anxiety Stop: 02/27/21 17:21 Magnesium Hydroxide (Magnesium Hydroxide Susp 30 Ml Udc) 30 ml PO DAILY PRN PRN Reason: Constipation Stop: 02/27/21 17:21 Pantoprazole Sodium (Pantoprazole 40 Mg Tab) 40 mg PO DAILY GOOD Stop: 02/28/21 08:59 Last Admin: 02/07/21 08:59 Dose: 40 mg Documented by: Sodium Chloride (Sodium Chloride 0.65% Na Soln 45 Ml ([place])) 1 - 2 sprays NA PRN PRN PRN Reason: Nasal Dryness/Congestion Stop: 02/27/21 17:21 Mental Health & Subst Abuse Tx Psychiatrist Name of Psychiatrist: Melissa Arceo Psychiatrist's Date of Appointment with Psychiatrist: 02/11/21 Time of Appointment with Psychiatrist: 3:20 PM Psychiatric Appointment Comment: [phone] Therapist Name of Therapist: [facility] - Dr. Ann Melo Therapist's Date of Therapist Appointment: 02/11/21 Time of Therapist Appointment: 9:00 am Therapy Appointment Comment: [address], [place] Tile Grinder Name of Tile Grinder: . Post Discharge Appointments Primary Care Physician Name Of Family Doctor: [facility] Primary Care Provider Appointment Comment: [address], [address], [place], [place] Contact Information Discharge Discharge Address: [address] [place] [id number]
--- NOTE | 2021-02-08 08:01 | Psychiatric Progress Note ---
Date of Service February 08, 2021 Impression / Recommendations Impression 60-year-old female with history of major depressive disorder presenting with worsening depression and suicidal ideation. Her SSRI was cross tapered to a trial of Wellbutrin XL with Abilify augmentation. (1) Depression with suicidal ideation: 02/08/21 Tolerating Abilify retrial, titrate to 7.5 mg tomorrow (goal of previously effective dose of 10 mg). 02/07/21 Titrate Abilify to 5 mg daily. Titrate Wellbutrin to 300 mg XL starting tomorrow to further trial. metabolic labs reviewed. Staff confirmed cost is <$20/month. 02/06/21 Dr. Adams's care plan reviewed (in italics below). Discussed that Wellbutrin can cause jitteriness if titrated too quickly and that benzodiazepines are nervous system depressants. Would recommend augmentation with Abilify which she has taken successfully before, most recently after her [facility] hospitalization 2 years ago. States that helped/well tolerated but was $70 a month so she did not refill. Reviewed good rx, generic and ability to split tabs, will start 2.5 mg today and titrate while confirming out of pocket cost. She believes she may have met her deductible. Discussed limited past ECT trial and possible TMS refrerral. Risks/benefits/alternatives were reviewed re: antipsychotics for mood and/or psychosis. Discussion included but was not limited to metabolic side effects, risks of TD and suicidal thoughts. There were no abnormal motor movements at baseline. Fasting glucose and lipid panel ordered for baseline monitoring. The patient was admitted to the [facility] ([facility] mental health unit) on every 15 minute checks (behavioral with suicide precautions for safety. The patient will participate in group, recreational, and milieu therapies and will be offered additional individual and family sessions as clinically appropriate. 02/05/2021atient now taking 150 mg of Wellbutrin XL every morning, duloxetine 90 mg every morning. Valium 5 mg p.o. twice daily as needed will be decreased to 2.5 mg p.o. twice daily as needed. 02/04/2021will change Wellbutrin to XL formulation starting tomorrow morning. Will discontinue Effexor. We will continue with duloxetine 90 mg p.o. every morning. 02/02/2021will lower the dose of Effexor to 37.5 tomorrow and start cross-taper to Wellbutrin. 02/01/2021atient is making progress with regards to her ability to interact with peers, however mood remains low. We will continue the plan for down titration and eventual removal of Effexor with cross-taper to Wellbutrin. 01/31/2021- Will down taper and eventually discontinue Effexor, with plan of replacing with Wellbutrin. Dose will be lowered to 75mg PO daily starting tomorrow. 01/30/2021atient remains depressed. We will continue with current regimen 01/29/2021atient with significant anxiety unable to articulate points without crying. Will start Valium 5 mg p.o. twice daily as needed. We will also increase antidepressant venlafaxine to 187.5 mg p.o. every morning Protective Factors Assessment Employed: Yes ([employer]) Interval History Identifying Information 60 yo female admit on 201 for severe depression and hopelessness. Chief Complaint "Im anxious thinking about going back to work". Review of Systems Sleep Information Total Hours of Sleep: 6.5 Sleep Comments: pt given vistaril per rn. pt on q-15 minute checks Meal Information Percent Meal Consumed - Breakfast: 10 Percent Meal Consumed - Lunch: 100 Percent Meal Consumed - Dinner: 90 Nutrition Comment: pt drank coffee Subjective Subjective Patient was seen & assessed and interval progress reviewed with treatment team. Patient notes little improvement but staff note no tearfulness last pm and she is interacting more. She is eating well despite complaints of poor PO. Reviewed her options with regards to return to work and needed family supports for transition. Tolerating medication changes, thinks energy "may be a little better". Physical Exam Psychiatric Orientation: alert and oriented x 3 Apperance: appropriately groomed Eye Contact: good eye contact Motor Behavior: no abnormal motor movements Speech: normal rate/rhythm/volume of speech Affect: + depressed affect Mood: + depressed mood and + anxious mood Thought Process: clear/coherent thought process Thought Content: reality based without delusions, + hopelessness, + worthlessness and + self deprecation ongoing overwhelm, unable to contract for safety outside of hospital, denies intent/plan on unit Homicidal Thoughts: denies homicidal thoughts Hallucinations: no auditory hallucinations and no visual hallucinations Cognition: recent memory grossly intact Estimated Intelligence: consistent with education level Insight: + fair insight Judgement: + fair judgement Vital Signs (Past 24 Hours) Last Vital Signs Temp 36.5 C 02/08/21 06:49 Pulse 103 H 02/08/21 06:49 Resp 18 02/08/21 06:49 BP 102/69 02/08/21 06:49 Pulse Ox 96 02/04/21 14:19 Results & Data ([facility]) Laboratory Results Laboratory Results - last 24 hr 02/07/21 08:15 Fasting Glucose 85 Triglycerides 53 Cholesterol 147 LDL Cholesterol, Calc 86 VLDL Cholesterol, Calc 11 HDL Cholesterol 50 Cholesterol/HDL Ratio 3 Current Inpatient Medications Current Inpatient Medications: Current Inpatient Medications Acetaminophen (Acetaminophen 325 Mg Tab) 650 mg PO Q4H PRN PRN Reason: Headache or Minor Fever Stop: 02/27/21 17:21 Last Admin: 02/04/21 13:22 Dose: 650 mg Documented by: Al Hydrox/Mg Hydrox/Simethicone (Aluminum/Magnesium Susp 30 Ml Udc) 30 ml PO Q4H PRN PRN Reason: GI Upset Stop: 02/27/21 17:21 Albuterol (Albuterol Hfa 8 Gm Inhaler) 1 puffs INH QID PRN PRN Reason: sob Stop: 02/27/21 17:47 Aripiprazole ([facility] 5 Mg Tab) [facility] Stop: 03/10/21 08:59 Bismuth Subsalicylate (Bismuth Subsalicylate Liqd 236 Ml) 15 ml PO PRN PRN PRN Reason: Loose Stool Stop: 02/27/21 17:21 Bupropion HCl (Bupropion Xl 300 Mg Tabcr) 300 [facility] Stop: 03/10/21 08:59 Cetirizine HCl (Cetirizine Hcl 10 Mg Tablet) [facility] Stop: 02/28/21 08:59 Last Admin: 02/07/21 08:58 Dose: 10 mg Documented by: Diazepam (Diazepam 5 Mg Tablet) 2.5 mg PO BID PRN PRN Reason: anxiety Stop: 02/27/21 17:31 Duloxetine HCl (Duloxetine Hcl 30 Mg Cap) 90 [facility] Stop: 02/28/21 08:59 Last Admin: 02/07/21 08:58 Dose: 90 mg Documented by: Fluticasone/Vilanterol (Fluticasone/Vilanterol 200/25mcg 14 Puffs/Inhaler) 1 puffs INH DAILY GOOD Stop: 02/28/21 08:59 Last Admin: 02/07/21 08:59 Dose: 1 puffs Documented by: Gabapentin (Gabapentin 400 Mg Cap) 400 mg PO BID GOOD Stop: 02/27/21 20:59 Last Admin: 02/07/21 20:22 Dose: 400 mg Documented by: Hydroxyzine HCl (Hydroxyzine Hcl 25 Mg Tab) 50 mg PO HSZ PRN PRN Reason: Insomnia Stop: 02/27/21 17:21 Last Admin: 02/05/21 23:32 Dose: 50 mg Documented by: Hydroxyzine HCl (Hydroxyzine Hcl 25 Mg Tab) 25 mg PO Q4H PRN PRN Reason: Anxiety Stop: 02/27/21 17:21 Magnesium Hydroxide (Magnesium Hydroxide Susp 30 Ml Udc) 30 ml PO DAILY PRN PRN Reason: Constipation Stop: 02/27/21 17:21 Pantoprazole Sodium (Pantoprazole 40 Mg Tab) 40 mg PO DAILY GOOD Stop: 02/28/21 08:59 Last Admin: 02/07/21 08:59 Dose: 40 mg Documented by: Sodium Chloride (Sodium Chloride 0.65% Na Soln 45 Ml (Rafael Gonzalez)) 1 - 2 sprays NA PRN PRN PRN Reason: Nasal Dryness/Congestion Stop: 02/27/21 17:21 Mental Health & Subst Abuse Tx Psychiatrist Name of Psychiatrist: Melissa Arceo Psychiatrist's Date of Appointment with Psychiatrist: 02/11/21 Time of Appointment with Psychiatrist: 3:20 PM Psychiatric Appointment Comment: [id number] Therapist Name of Therapist: [facility] - Dr. 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 Post Discharge Appointments Primary Care Physician Name Of Family Doctor: [facility] Primary Care Provider Appointment Comment: [address] [facility], [address], [place], [place] Contact Information Discharge Discharge Address: [address] [place] [address], [place] [address]
[2021-02-08] MEDS ORDERED: ARIPiprazole 5 MG TAB PO SCH (09:00)
[2021-02-08] MEDS: buPROPion XL 300 MG TABCR PO SCH (09:06)
[2021-02-08] MEDS: CETIRIZINE HCL 10 MG TABLET PO SCH (09:06)
[2021-02-08] MEDS: DULoxetine HCL 30 MG CAP PO SCH (09:06)
[2021-02-08] MEDS: PANTOprazole 40 MG TAB PO SCH (09:07)
[2021-02-08] MEDS: GABAPENTIN 400 MG CAP PO SCH ×2 (09:07→20:20)
[2021-02-08] MEDS: FLUTICASONE/VILANTEROL 200/25MCG 14 PUFFS/INHALER INH SCH (09:07)
[2021-02-09] MEDS: hydrOXYzine HCl 25 MG TAB PO PRN (00:11)
--- NOTE | 2021-02-09 08:04 | Psychiatric Progress Note ---
Date of Service February 09, 2021 Impression / Recommendations Impression 60-year-old female with history of major depressive disorder presenting with worsening depression and suicidal ideation. Her SSRI was cross tapered to a trial of Wellbutrin XL with Abilify augmentation. Imp: some improvement (1) Depression with suicidal ideation: 02/09/21 Titrate Abilify to 10 mg tomorrow am. Reviewed dosing ranges and possibility of outpatient consideration for TMS. Risks/benefits/alternatives reviewed re: short term use of low dose Ambien to facilitate sleep until antidepressants more effective. She agreed to a trial of 5 mg this hs. 02/08/21 Tolerating Abilify retrial, titrate to 7.5 mg tomorrow (goal of previously effective dose of 10 mg). 02/07/21 Titrate Abilify to 5 mg daily. Titrate Wellbutrin to 300 mg XL starting tomorrow to further trial. metabolic labs reviewed. Staff confirmed cost is <$20/month. 02/06/21 Dr. Adams's care plan reviewed (in italics below). Discussed that Wellbutrin can cause jitteriness if titrated too quickly and that benzodiazepines are nervous system depressants. Would recommend augmentation with Abilify which she has taken successfully before, most recently after her [facility] hospitalization 2 years ago. States that helped/well tolerated but was $70 a month so she did not refill. Reviewed good rx, generic and ability to split tabs, will start 2.5 mg today and titrate while confirming out of pocket cost. She believes she may have met her deductible. Discussed limited past ECT trial and possible TMS refrerral. Risks/benefits/alternatives were reviewed re: antipsychotics for mood and/or psychosis. Discussion included but was not limited to metabolic side effects, risks of TD and suicidal thoughts. There were no abnormal motor movements at baseline. Fasting glucose and lipid panel ordered for baseline monitoring. The patient was admitted to the [facility] ([facility] inpatient mental health unit) on every 15 minute checks (behavioral with suicide precautions for safety. The patient will participate in group, recreational, and milieu therapies and will be offered additional individual and family sessions as clinically appropriate. 1patient now taking 150 mg of Wellbutrin XL every morning, duloxetine 90 mg every morning. Valium 5 mg p.o. twice daily as needed will be decreased to 2.5 mg p.o. twice daily as needed. 02/04/2021will change Wellbutrin to XL formulation starting tomorrow morning. Will discontinue Effexor. We will continue with duloxetine 90 mg p.o. every morning. 02/02/2021will lower the dose of Effexor to 37.5 tomorrow and start cross-taper to Wellbutrin. 02/01/2021atient is making progress with regards to her ability to interact with peers, however mood remains low. We will continue the plan for down titration and eventual removal of Effexor with cross-taper to Wellbutrin. 01/31/2021- Will down taper and eventually discontinue Effexor, with plan of replacing with Wellbutrin. Dose will be lowered to 75mg PO daily starting tomorrow. 01/30/2021atient remains depressed. We will continue with current regimen 01/29/2021atient with significant anxiety unable to articulate points without crying. Will start Valium 5 mg p.o. twice daily as needed. We will also increase antidepressant venlafaxine to 187.5 mg p.o. every morning Protective Factors Assessment Employed: Yes ([employer]) Interval History Identifying Information 60 yo female admit on for severe depression and hopelessness. Chief Complaint "I'll have to be OK, I do worry about work". Review of Systems Sleep Information Total Hours of Sleep: 5.5 Sleep Comments: pt given vistaril per rn. pt on q-15 minute checks Meal Information Percent Meal Consumed - Breakfast: 25 Percent Meal Consumed - Lunch: 100 Percent Meal Consumed - Dinner: 100 Nutrition Comment: pt. does not typically eat breakfast. Had a banana and coffee. Subjective Subjective Patient was seen & assessed and interval progress reviewed with nursing and social work. Patient notes a fun facetime with her grandson. She remains rather flat but less tearful in interactions with staff. She denies SI today but is still unsure of her plan for work. She confirms that her granddaughter will be with her upon return home. Sleep remains non-restorative. Physical Exam Psychiatric Orientation: alert and oriented x 3 Apperance: appropriately groomed Eye Contact: good eye contact Motor Behavior: no abnormal motor movements Speech: normal rate/rhythm/volume of speech Affect: + depressed affect Mood: + depressed mood and + anxious mood Thought Process: clear/coherent thought process Thought Content: reality based without delusions and + hopelessness Suicidal Thoughts: denies suicidal thoughts Homicidal Thoughts: denies homicidal thoughts Hallucinations: no auditory hallucinations and no visual hallucinations Cognition: recent memory grossly intact Estimated Intelligence: consistent with education level Insight: + fair insight Judgement: + fair judgement Vital Signs (Past 24 Hours) Last Vital Signs Temp 36.6 C 02/09/21 06:53 Pulse 104 H 02/09/21 06:53 Resp 14 02/09/21 06:53 BP 112/82 02/09/21 06:53 Pulse Ox 96 02/04/21 14:19 Results & Data ([facility]) Current Inpatient Medications Current Inpatient Medications: Current Inpatient Medications Acetaminophen (Acetaminophen 325 Mg Tab) 650 mg PO Q4H PRN PRN Reason: Headache or Minor Fever Stop: 02/27/21 17:21 Last Admin: 02/04/21 13:22 Dose: 650 mg Documented by: Al Hydrox/Mg Hydrox/Simethicone (Aluminum/Magnesium Susp 30 Ml Udc) 30 ml PO Q4H PRN PRN Reason: GI Upset Stop: 02/27/21 17:21 Albuterol (Albuterol Hfa 8 Gm Inhaler) 1 puffs INH QID PRN PRN Reason: sob Stop: 02/27/21 17:47 Aripiprazole (Aripiprazole 5 Mg Tab) 7.5 mg PO QAM GOOD Stop: 03/11/21 08:59 Bismuth Subsalicylate (Bismuth Subsalicylate Liqd 236 Ml) 15 ml PO PRN PRN PRN Reason: Loose Stool Stop: 02/27/21 17:21 Bupropion HCl (Bupropion Xl 300 Mg Tabcr) 300 mg PO QAM GOOD Stop: 03/10/21 08:59 Last Admin: 02/08/21 09:06 Dose: 300 mg Documented by: Cetirizine HCl (Cetirizine Hcl 10 Mg Tablet) 10 mg PO QAM GOOD Stop: 02/28/21 08:59 Last Admin: 02/08/21 09:06 Dose: 10 mg Documented by: Diazepam (Diazepam 5 Mg Tablet) 2.5 mg PO BID PRN PRN Reason: anxiety Stop: 02/27/21 17:31 Duloxetine HCl (Duloxetine Hcl 30 Mg Cap) 90 mg PO QAM GOOD Stop: 02/28/21 08:59 Last Admin: 02/08/21 09:06 Dose: 90 mg Documented by: Fluticasone/Vilanterol (Fluticasone/Vilanterol 200/25mcg 14 Puffs/Inhaler) 1 puffs INH DAILY OGOD Stop: 02/28/21 08:59 Last Admin: 02/08/21 09:07 Dose: 1 puffs Documented by: Gabapentin (Gabapentin 400 Mg Cap) 400 mg PO BID GOOD Stop: 02/27/21 20:59 Last Admin: 02/08/21 20:20 Dose: 400 mg Documented by: Hydroxyzine HCl (Hydroxyzine Hcl 25 Mg Tab) 50 mg PO HSZ PRN PRN Reason: Insomnia Stop: 02/27/21 17:21 Last Admin: 02/09/21 00:11 Dose: 50 mg Documented by: Hydroxyzine HCl (Hydroxyzine Hcl 25 Mg Tab) 25 mg PO Q4H PRN PRN Reason: Anxiety Stop: 02/27/21 17:21 Magnesium Hydroxide (Magnesium Hydroxide Susp 30 Ml Udc) 30 ml PO DAILY PRN PRN Reason: Constipation Stop: 02/27/21 17:21 Pantoprazole Sodium (Pantoprazole 40 Mg Tab) 40 mg PO DAILY GOOD Stop: 02/28/21 08:59 Last Admin: 02/08/21 09:07 Dose: 40 mg Documented by: Sodium Chloride (Sodium Chloride 0.65% Na Soln 45 Ml ([place])) 1 - 2 sprays NA PRN PRN PRN Reason: Nasal Dryness/Congestion Stop: 02/27/21 17:21 Mental Health & Subst Abuse Tx Psychiatrist Name of Psychiatrist: Melissa Arceo Psychiatrist's Date of Appointment with Psychiatrist: 02/11/21 Time of Appointment with Psychiatrist: 3:20 PM Psychiatric Appointment Comment: [address] Therapist Name of Therapist: [facility] - Dr. 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 Post Discharge Appointments Primary Care Physician Name Of Family Doctor: [facility] Time of Appointment with PCP: Please follow up as prescribed Provider Appointment Comment: [address] [facility], [address], [place], [place] Contact Information Discharge Discharge Address: [address] [place] [address]
[2021-02-09] MEDS ORDERED: ARIPiprazole 5 MG TAB PO SCH (09:00)
[2021-02-09] MEDS: buPROPion XL 300 MG TABCR PO SCH (09:13)
[2021-02-09] MEDS: CETIRIZINE HCL 10 MG TABLET PO SCH (09:13)
[2021-02-09] MEDS: FLUTICASONE/VILANTEROL 200/25MCG 14 PUFFS/INHALER INH SCH (09:13)
[2021-02-09] MEDS: GABAPENTIN 400 MG CAP PO SCH ×2 (09:13→21:04)
[2021-02-09] MEDS: PANTOprazole 40 MG TAB PO SCH (09:13)
[2021-02-09] MEDS: DULoxetine HCL 30 MG CAP PO SCH (09:13)
[2021-02-09] MEDS: ACETAMINOPHEN 325 MG TAB PO PRN (15:59)
[2021-02-09] MEDS ORDERED: ZOLPIDEM TARTRATE 5 MG TAB PO SCH (22:00)
[2021-02-10] MEDS ORDERED: ARIPiprazole 10 MG TAB PO SCH (09:00)
[2021-02-10] MEDS: GABAPENTIN 400 MG CAP PO SCH (09:26)
[2021-02-10] MEDS: buPROPion XL 300 MG TABCR PO SCH (09:26)
[2021-02-10] MEDS: CETIRIZINE HCL 10 MG TABLET PO SCH (09:26)
[2021-02-10] MEDS: FLUTICASONE/VILANTEROL 200/25MCG 14 PUFFS/INHALER INH SCH (09:26)
[2021-02-10] MEDS: DULoxetine HCL 30 MG CAP PO SCH (09:26)
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
[2021-02-10] MEDS: PANTOprazole 40 MG TAB PO SCH (09:27)
== END 2021-02-10 10:20 | disposition home or self-care (01) | DRG 885 ==
LOC: ED 09:50 → 3S 17:07 → SUATTDRO 17:22 → 3S 02-06 18:24